=== PATIENT | female | born 1990 | race Caucasian/White ===

== ENCOUNTER 2017-02-12 13:15 | Inpatient (IN) | payer OTHER ==
[2017-02-12] MEDS ORDERED: BETAMET ACET/BETAMET NA PH 30 MG/5 ML VIAL IM ONE (13:40)
[2017-02-12 14:26] LABS: BASOPHIL 0.4 % (0-2.0); EOSINOPHIL 0.2 % (0-4.5); MCH 27.4 pg (25.7-33.7); MCHC 32.2 g/dl (32.0-36.0); MEAN CELL VOLUME 85.2 fl (80-96); MEAN PLT VOLUME 7.9 fl (7.5-11.1); NEUTROPHILS 72.7 % (42.8-82.8); PLATELET COUNT 221 K/MM3 (134-434); RDW 15.5 % (11.6-15.6)
[2017-02-12 14:46] LABS: ALK PHOS 162 U/L (45-117); ANION GAP 10 (8-16); BILIRUBIN,TOTAL 0.2 mg/dL (0.2-1.0); CALCIUM 8.2 mg/dL (8.5-10.1); CO2 24 mmol/L (21-32); COCKROFT - GAULT 0; CREATININE 0.6 mg/dL (0.55-1.02); GLUCOSE,RANDOM 61 mg/dL (74-106); SGOT/AST 17 U/L (15-37); SGPT/ALT 14 U/L (12-78); TOT PROT 5.8 g/dl (6.4-8.2)
[2017-02-12 15:30] LABS: URINE APPEARANCE CLEAR; URINE BILIRUBIN NEGATIVE (NEGATIVE); URINE BLOOD NEGATIVE (NEGATIVE); URINE COLOR YELLOW; URINE GLUCOSE (UA) NEGATIVE (NEGATIVE); URINE KETONE NEGATIVE (NEGATIVE); URINE NITRITE NEGATIVE (NEGATIVE); URINE UROBILINOGEN NEGATIVE E.U./dl (0.2-1.0)
[2017-02-12 15:34] LABS: URINE LEUK ESTERASE 1+ (NEGATIVE); URINE PROTEIN 3+ (NEGATIVE)
[2017-02-12 15:36] LABS: URINE BACTERIA RARE /hpf (NONE SEEN); URINE HYALINE CAST 2 /lpf; URINE MUCUS RARE; URINE RBC 4 /hpf (0-3); URINE WBC 37 /hpf (3-5)
[2017-02-12 15:42] LABS: URIC ACID 4.7 mg/dL (2.6-7.2)
[2017-02-12 16:28] VITALS: BMI 37.9
[2017-02-12 18:13] LABS: INR 0.86 (0.82-1.09); PROTHROMBIN TIME (PATIENT) 9.4 SEC (9.98-11.88)
[2017-02-12 18:15] LABS: ACTIVATED PTT 27.8 SECONDS (26.9-34.4)
[2017-02-12 18:48] LABS: HIV 1 & 2 AB NEGATIVE; HIV 1 AGp24 NEGATIVE
--- NOTE | 2017-02-12 19:17 | HP ---
Past Medical History - Primary Care Physician PCP:: Omar Stinson - Admission Chief Complaint: 34.4 weeks,pih, .elevate umblical artery measurment. obesity History of Present Illness: 26 yo f , edc by sono 03/22/17, 34.3 weeks, referred from DR Escalera office for elevated BP158/115, no headache, no blurred vision, no RUQ pain recived celstone on 02/12/17 at 145 pm Last Vital Signs Temp Pulse Resp BP Pulse Ox 98.3 F 72 20 152/91 02/12/17 18:00 02/12/17 19:00 02/12/17 19:00 02/12/17 19:00 CBC, BMP 02/12/17 14:14 02/12/17 14:14 - Past Medical History ...: 1 ...Para: 0 ...LMP: 06/25/16 ... Weeks Gestation by Dates: 33.1 ...EDC by Dates: 04/01/17 ...EDC by Sono: 03/22/17 Additional OB History: elevated inhibin A. negative NT - Past Surgical History Hx Myomectomy: No Hx Transabdominal Cerclage: No - Smoking History Smoking history: Never smoked Have you smoked in the past 12 months: No - Alcohol/Substance Use Hx Alcohol Use: No - Social History History of Recent Travel: No Home Medications - Allergies Allergies/Adverse Reactions: Allergies Allergy/AdvReac Type Severity Reaction Status Date / Time No Known Allergies Allergy Verified 08/24/16 17:08 - Home Medications Home Medications: Ambulatory Orders Vit/Iron Fumarate/FA [ Tablet] 1 tab PO DAILY 02/12/17 Review of Systems - Review of Systems Constitutional: reports: No Symptoms Eyes: reports: No Symptoms HENT: reports: No Symptoms Neck: reports: No Symptoms Cardiovascular: reports: No Symptoms Respiratory: reports: No Symptoms Gastrointestinal: reports: No Symptoms Genitourinary: reports: No Symptoms Breasts: reports: No Symptoms Reported Musculoskeletal: reports: No Symptoms Integumentary: reports: No Symptoms Neurological: reports: No Symptoms Endocrine: reports: No Symptoms Hematology/Lymphatic: reports: No Symptoms Psychiatric: reports: No Symptoms Physical Exam - Maternity Vital Signs: Vital Signs Temperature 98.3 F 02/12/17 18:00 Pulse Rate 72 02/12/17 19:00 Respiratory Rate 20 02/12/17 19:00 Blood Pressure 152/91 02/12/17 19:00 O2 Sat by Pulse Oximetry (%) Constitutional: Yes: Well Nourished, No Distress, Calm Eyes: Yes: WNL, Conjunctiva Clear, EOM Intact HENT: Yes: WNL, Atraumatic, Normocephalic Neck: Yes: WNL, Supple, Trachea Midline Cardiovascular: Yes: WNL, Regular Rate and Rhythm Breast(s): Yes: WNL - Abdominal Exam/OB Number of Fetuses: Single Presentation: Vertex Regularity: Irregular Intensity: Unaware Monitor Mode: External Heart Rate Location: [facility] [place] Category: I Accelerations: Uniform Decelerations: None - Vaginal Exam/OB Vaginal Bleediing: No Speculum Exam: No Dilatation (cm): 1 cm Effacement (%): 25 Amniotic Membrane Status: Intact Presentation: Vertex/Position Station: -2 - Physical Exam Musculoskeletal: Yes: WNL Extremities: Yes: WNL Edema: Yes Edema: LLE: 2+, RLE: 2+ Integumentary: Yes: WNL ...Motor Strength: WNL Psychiatric: Yes: WNL - Labs Lab Results: CBC, BMP 02/12/17 14:14 02/12/17 14:14 Hemorrhage Risk Assessment - Risk Factors Medium Risk Factors: Yes: None High Risk Factors: Yes: None Risk Score: 1 Risk Level: Medium Risk Problem List - Problems (1) with 34 completed weeks gestation Code(s): Z3A.34 - 34 WEEKS GESTATION OF (2) PIH ( induced hypertension) Code(s): O13.9 - GESTATIONAL HTN W/O SIGNIFICANT PROTEINURIA, UNSP TRIMESTER Qualifiers: Trimester: third trimester Qualified Code(s): O13.3 - Gestational [ -induced] hypertension without significant proteinuria, third trimester (3) Obesity Code(s): E66.9 - OBESITY, UNSPECIFIED Qualifiers: Obesity type: due to excess calories Assessment/Plan plan admit, monitor bp closely, MGSO4. monitor i/o, celestone, 2 doses , followed by delivery, case discussed with DR Escalera ,agreed with plan of management case also discussed with patient and her mother via supply manager
[2017-02-12] MEDS: DEXTROSE 5%-LACTATED RINGERS 1,000 ML IV SCH (20:00)
[2017-02-12] MEDS: MAGNESIUM 4GM/H20 - 100 ML IVPB SCH (20:15)
[2017-02-12] MEDS: LABETALOL HCL 200 MG TABLET (FP) PO PRN (20:50)
[2017-02-12] MEDS: MAGNESIUM SULFATE 20GM/500ML - 500 ML IVPB SCH (20:50)
[2017-02-13] MEDS ORDERED: BETAMET ACET/BETAMET NA PH 30 MG/5 ML VIAL IM ONE (01:45)
[2017-02-13] MEDS: LABETALOL HCL 200 MG TABLET (FP) PO PRN (05:25)
[2017-02-13 06:06] LABS: MCH 27.3 pg (25.7-33.7); MCHC 32.6 g/dl (32.0-36.0); MEAN CELL VOLUME 83.7 fl (80-96); MEAN PLT VOLUME 7.9 fl (7.5-11.1); PLATELET COUNT 228 K/MM3 (134-434); WHITE BLOOD COUNT 11.2 K/mm3 (4.0-10.0)
[2017-02-13 06:49] LABS: ALBUMIN 2.1 g/dl (3.4-5.0); ANION GAP 12 (8-16); BILIRUBIN,TOTAL 0.1 mg/dL (0.2-1.0); CALCIUM 7.9 mg/dL (8.5-10.1); CO2 18 mmol/L (21-32); COCKROFT - GAULT 283.2455; CREATININE 0.5 mg/dL (0.55-1.02); GLUCOSE,RANDOM 120 mg/dL (74-106); SGOT/AST 17 U/L (15-37); SGPT/ALT 16 U/L (12-78); TOT PROT 6.1 g/dl (6.4-8.2)
[2017-02-13 06:50] LABS: ALK PHOS 165 U/L (45-117)
[2017-02-13] MEDS: DEXTROSE 5%-LACTATED RINGERS 1,000 ML IV SCH ×2 (13:30→21:00)
--- NOTE | 2017-02-13 18:51 | PN ---
Progress Note (short form) - Note Progress Note: hospital day 1 34 weeks, pih, iugr no headache, no blurred vision, no RUQ pain Last Vital Signs Temp Pulse Resp BP Pulse Ox 97.9 F 77 20 148/80 02/13/17 12:05 02/13/17 18:00 02/13/17 18:00 02/13/17 18:00 CBC, BMP 02/13/17 06:00 02/13/17 06:00 abdomen soft, , no ruq tenderness , no cva uterus non tender cx 2 cm , 25%, vx -2 mi, fhr cat 1,no contraction recived second dose of celestone, recived one dose of labatalol, bp stable , asymptomatic on MG, plan wait for 24 hr urine protein, and monitor bp, possible induction in am Problem List - Problems (1) with 34 completed weeks gestation Code(s): Z3A.34 - 34 WEEKS GESTATION OF (2) PIH ( induced hypertension) Code(s): O13.9 - GESTATIONAL HTN W/O SIGNIFICANT PROTEINURIA, UNSP TRIMESTER Qualifiers: Trimester: third trimester Qualified Code(s): O13.3 - Gestational [ -induced] hypertension without significant proteinuria, third trimester (3) Obesity Code(s): E66.9 - OBESITY, UNSPECIFIED Qualifiers: Obesity type: due to excess calories
[2017-02-13 22:52] LABS: URINE PROTEIN 357 mg/dl
[2017-02-13 22:54] LABS: URINE COLLECTION TIME 24 HOURS
[2017-02-13 22:55] LABS: CREATININE 0.5 mg/dL (0.55-1.02); URINE CREATININE 96.8 mg/dL
[2017-02-13] MEDS ORDERED: DINOPROSTONE 10 MG VAGINAL SUPPOSITORY VG ONE (23:15)
[2017-02-14] MEDS: DEXTROSE 5%-LACTATED RINGERS 1,000 ML IV SCH ×2 (03:06→05:30)
[2017-02-14] MEDS: MAGNESIUM 4GM/H20 - 100 ML IVPB SCH (03:07)
[2017-02-14] MEDS: LABETALOL HCL 200 MG TABLET (FP) PO PRN ×2 (07:19→21:15)
[2017-02-14] MEDS: MAGNESIUM SULFATE 20GM/500ML - 500 ML IVPB SCH (11:15)
[2017-02-14] MEDS ORDERED: BUTORPHANOL TARTRATE 1 MG/ML VIAL IVPUSH ONE (11:45)
[2017-02-14] MEDS ORDERED: OXYTOCIN 15 UNITS/ LR 250 ML 250 ML IVPB SCH (16:00)
--- NOTE | 2017-02-14 16:59 | PN ---
Progress Note (short form) - Note Progress Note: cx 1 to 2 50 vx -2 mi, fhr cat 1 no dilation with cervidil and pitocin advised c/s rba explained, agreed , nursery notified Last Vital Signs Temp Pulse Resp BP Pulse Ox 98.1 F 62 20 147/89 02/14/17 14:00 02/14/17 15:00 02/14/17 15:00 02/14/17 15:00 Problem List - Problems (1) with 34 completed weeks gestation Code(s): Z3A.34 - 34 WEEKS GESTATION OF (2) PIH ( induced hypertension) Code(s): O13.9 - GESTATIONAL HTN W/O SIGNIFICANT PROTEINURIA, UNSP TRIMESTER Qualifiers: Trimester: third trimester Qualified Code(s): O13.3 - Gestational [ -induced] hypertension without significant proteinuria, third trimester (3) Obesity Code(s): E66.9 - OBESITY, UNSPECIFIED Qualifiers: Obesity type: due to excess calories
[2017-02-14] MEDS ORDERED: ELECTROLYTE-148 SOLN 1,000 ML IV SCH (17:00)
[2017-02-14] MEDS ORDERED: CITRIC ACID/SODIUM CITRATE 30 ML UNIT-DOSE CUP PO ONE (17:00)
[2017-02-14] MEDS ORDERED: DEXTROSE 5%-LACTATED RINGERS 1,000 ML IV SCH ×2 (17:00→20:15)
[2017-02-14 18:23] LABS: BASOPHIL 0.2 % (0-2.0); MCH 27.6 pg (25.7-33.7); MCHC 32.8 g/dl (32.0-36.0); MEAN CELL VOLUME 84.2 fl (80-96); MEAN PLT VOLUME 7.7 fl (7.5-11.1); NEUTROPHILS 82.5 % (42.8-82.8); PLATELET COUNT 234 K/MM3 (134-434); RDW 15.5 % (11.6-15.6); WHITE BLOOD COUNT 11.7 K/mm3 (4.0-10.0)
[2017-02-14] MEDS ORDERED: BENZOCAINE 28 GM HEMORRHOIDAL OINTMENT PR PRN (20:11)
[2017-02-14] MEDS ORDERED: WITCH HAZEL 50% (TUCKS) 40 PAD/JAR PAD TP PRN (20:11)
[2017-02-14] MEDS ORDERED: BENZOCAINE 20% 57 GM BOTTLE TP PRN (20:11)
[2017-02-14] MEDS ORDERED: METHYLERGONOVINE MALEATE 0.2 MG/1 ML AMP IM PRN (20:11)
[2017-02-14] MEDS ORDERED: diphenhydrAMINE HCL 25 MG CAPSULE (FP) PO PRN (20:11)
[2017-02-14] MEDS ORDERED: ACETAMINOPHEN 1000 MG/100 ML VIAL (NON FORMULARY) IVPB ONE (20:13)
[2017-02-14] MEDS ORDERED: OXYTOCIN 20 UNITS in 0.9% NS 1,000 ML IV SCH (20:15)
[2017-02-14 20:18] LABS: ARTERIAL BLOOD GAS pH 7.28 (7.35-7.45)
[2017-02-14 20:20] LABS: ARTERIAL BLD GAS O2 SATURATION 7.2 % (90-98.9); ARTERIAL BLOOD GAS PO2 9.7 mmHg (80-100)
[2017-02-14 20:23] LABS: ARTERIAL BLOOD GAS BASE EXCESS -0.3 meq/l (-2-2); ARTERIAL BLOOD GAS HCO3 26.3 meq/L (22-26); ARTERIAL BLOOD GAS pH 7.33 (7.35-7.45)
[2017-02-14 20:24] LABS: ARTERIAL BLD GAS O2 SATURATION 31.6 % (90-98.9); ARTERIAL BLOOD GAS PO2 20.8 mmHg (80-100)
[2017-02-14] MEDS ORDERED: ONDANSETRON 4 MG/2 ML VIAL IVPB PRN (20:35)
[2017-02-14] MEDS ORDERED: MAGNESIUM SULFATE 20GM/500ML - 500 ML IVPB SCH (23:45)
[2017-02-15] MEDS: CEFAZOLIN (PRE-DOCKED) 50 ML IVPB SCH ×2 (02:00→09:14)
--- NOTE | 2017-02-15 02:08 | OP ---
DATE OF OPERATION: 02/14/2017 PREOPERATIVE DIAGNOSIS: at 34 weeks, severe -induced hypertension, Cervidil and Pitocin induction, failure to dilate. POSTOPERATIVE DIAGNOSIS: at 34 weeks, severe -induced hypertension, Cervidil and Pitocin induction, failure to dilate. PROCEDURE: Primary low segment transverse section. SURGEON: Omar Stinson MD FOOD PRODUCTS TESTER: VITO Domingo ANESTHESIA: Spinal anesthesia by Johnathan Bryant DO ESTIMATED BLOOD LOSS: 500 mL. FINDINGS: Live baby boy, 's 8 and 9, occiput posterior position, oligohydramnios, and IUGR. OPERATIVE DESCRIPTION: Patient was taken to the operating room under adequate spinal anesthesia. Abdomen and perineum were prepped and draped. Pfannenstiel abdominal skin incision was made. Abdominal wall was cut layer by layer until the peritoneal layer was exposed and incised. Upon entering the abdominal cavity, the lower uterine segment was identified and the uterovesical fold of the peritoneum established. Bladder was pushed down. With the lower blade of the [place] retractor in the pelvis, a low transverse uterine incision was made. The incision extended laterally. Amniotic sac was entered, clear fluid. Amniotic fluid was a small amount. Then, head delivered without any difficulty from the occiput posterior position. The nasopharynx was suctioned and the live baby was delivered. Placenta was delivered manually. Uterine cavity was cleared of all remaining tissue. Uterine incision was closed in 2 layers, first layer with 0 Biosyn continuous suture, the second layer with 0 Biosyn imbricating the first layer. Bladder flap was closed with 0 Biosyn continuous suture. Both tubes and ovaries were checked and were normal. No active bleeding was seen. All lap sponge and instrument counts were correct. The peritoneum was closed with 0 Biosyn continuous suture. Muscles were brought together with interrupted sutures of 0 Biosyn. Fascia was closed with 0 Biosyn continuous suture. Subcutaneous fat interrupted suture of 0 Biosyn and skin was closed with stapled. Patient tolerated the procedure well and left the OR in good condition. Nga [id number]
[2017-02-15] MEDS: LABETALOL HCL 200 MG TABLET (FP) PO PRN ×4 (02:30→22:00)
[2017-02-15 07:10] LABS: BASOPHIL 0.2 % (0-2.0); MCH 28.1 pg (25.7-33.7); MEAN CELL VOLUME 85.1 fl (80-96); MEAN PLT VOLUME 7.5 fl (7.5-11.1); PLATELET COUNT 133 K/MM3 (134-434); RDW 15.8 % (11.6-15.6); WHITE BLOOD COUNT 11.1 K/mm3 (4.0-10.0)
--- NOTE | 2017-02-15 08:14 | PN ---
Progress Note (short form) - Note Progress Note: Anesthesia post op note S/P with spinal. POD#1. No post anesthesia complications.On Mg drip. VSS. Signing off.
--- NOTE | 2017-02-15 08:52 | PN ---
Progress Note (short form) - Note Progress Note: pod 0 s/p c/s for severe pih,failure of induction, no headache, no blurred vision CBC, BMP 02/15/17 06:30 02/13/17 20:00 Last Vital Signs Temp Pulse Resp BP Pulse Ox 98.4 F 88 18 142/90 100 02/15/17 06:30 02/15/17 08:30 02/15/17 08:30 02/15/17 08:30 02/14/17 21:15 abdomen soft, no RUQ tenderness , no cav incision dry, no calf tenderness no excess vaginal bleding, out put adequate DTR normal impresion BP stable on labetlol, astmptomatic plan cont mg till 1 pm today, renal consult, oob , ambualte Problem List - Problems (1) with 34 completed weeks gestation Code(s): Z3A.34 - 34 WEEKS GESTATION OF (2) PIH ( induced hypertension) Code(s): O13.9 - GESTATIONAL HTN W/O SIGNIFICANT PROTEINURIA, UNSP TRIMESTER Qualifiers: Trimester: third trimester Qualified Code(s): O13.3 - Gestational [ -induced] hypertension without significant proteinuria, third trimester (3) Obesity Code(s): E66.9 - OBESITY, UNSPECIFIED Qualifiers: Obesity type: due to excess calories
--- NOTE | 2017-02-15 12:27 | CONSULT ---
Consult - text type - Consultation Consultation Note: Renal Consult for hypertension This is a 26 year old woman with no significant PMhx that presented at 34 weeks gestation referred from Ob office for elevated BP now s/p with hypertension. Pt reports that she was just told for the first time that her BP was high last week. No medications. No Hx of HTN. No family Hx of HTn as far as she knows. Gained about 40 lbs with . + LE swelling. No NSAID use. No sob, chest pain, abd pain, N/V/D. Pt seen in Labor and Delivery. No WILSON, blurry vision, confusion or lethargy. PMhx: as above Allergies: NKDA Family hx: NC Social Hx: No T/A/D ROS: as per HPI Home Meds: Home Medications Medication Instructions Recorded Vit/Iron Fumarate/FA 1 tab PO DAILY 02/12/17 [ Tablet] Vital Signs Temperature 98.4 F 02/15/17 10:00 Pulse Rate 78 02/15/17 12:00 Respiratory Rate 18 02/15/17 12:00 Blood Pressure 143/90 02/15/17 12:00 O2 Sat by Pulse Oximetry (%) 97 02/15/17 09:52 Intake & Output 02/12/17 02/13/17 02/14/17 02/15/17 23:59 23:59 23:59 23:59 Intake Total 1000 3600 4085.0 2137.5 Output Total 250 2100 4450 1350 Balance 750 1500 -365.0 787.5 Weight 228 lb Gen: NAD, awake and alert HEENT: NC/AT, MMM, No JVD, Neck Supple CVS: RRR, NO M/R Lungs: CTA Abd: Soft, Obese, Mild Tenderness Ext: 1+ edema in the LE Neuro: No focal defects CBC, BMP 02/15/17 06:30 02/13/17 20:00 Laboratory Tests 02/12/17 02/13/17 02/13/17 15:00 20:00 20:00 Urine Protein 3+ H Ur Leukocyte Esterase 1+ H D Creatinine Clearance 202 H Ur Total Protein 24 Hr 5355 H Current Medications Acetaminophen (Tylenol -) 650 mg PO Q4H PRN PRN Reason: FEVER OR PAIN Benzocaine (Americaine Ointment -) 1 applic NC PRN PRN PRN Reason: PAIN Benzocaine (Americaine 20% [place] -) 1 spray TP PRN PRN PRN Reason: PAIN Bisacodyl (Dulcolax Suppository -) 10 mg RC PRN PRN PRN Reason: CONSTIPATION Diphenhydramine HCl (Benadryl -) 25 mg PO Q8H PRN PRN Reason: FOR ITCHING Diphenhydramine HCl (Benadryl Injection -) 25 mg IVPUSH Q4H PRN PRN Reason: Pruritis Diphtheria/Tetanus/Acell Pertussis (Boostrix -) 0.5 ml IM .ONCE ONE Stop: 02/17/17 10:01 Magnesium Sulfate (Magnesium Sulfate 20gm/500ml -) 500 mls @ 25 mls/hr IVPB ASDIR SUSAN Last Admin: 02/14/17 22:15 Dose: 25 mls/hr Influenza Virus Vaccine (Fluvirin) 45 mcg IM .ONCE ONE Stop: 02/17/17 10:01 Labetalol HCl (Normodyne -) 200 mg PO Q6H PRN PRN Reason: HYPERTENSION Last Admin: 02/15/17 07:51 Dose: 200 mg Methylergonovine Maleate (Methergine Injection -) 0.2 mg IM Q4H PRN PRN Reason: EXCESSIVE BLEEDING Oxycodone HCl (Roxicodone -) 5 mg PO Q4H PRN PRN Reason: PAIN LEVEL 1-5 Oxycodone HCl (Roxicodone -) 10 mg PO Q4H PRN PRN Reason: PAIN LEVEL 6-10 Senna/Docusate Sodium (Pericolace -) 2 tablet PO HS PRN PRN Reason: CONSTIPATION Simethicone (Mylicon -) 80 mg PO Q4H PRN PRN Reason: GAS Witch Kasia/Glycerin (Tucks Pads -) 1 pad TP PRN PRN PRN Reason: PAIN A/P 26 year old woman with no significant PMhx that presented at 34 weeks gestation referred from Ob office for elevated BP now s/p with hypertension. # Hypertension likely secondary to Preclampisia r/o HEELP Check UPCR, Repeat UA Check LDH, Haptoglobin, LFTs continue Labetalol 200mg Q6h PRN for SBP > 140 or DBP > 90 Low salt diet avoid nsaids D/c IVF when possible #Low Plts Check LDH, Haptoglobin Trend CBC #34 weeks gestation s/p Management as per Ob Thank you Fei Raymundo DO
[2017-02-15 13:10] LABS: URINE APPEARANCE CLEAR; URINE BILIRUBIN NEGATIVE (NEGATIVE); URINE BLOOD 2+ (NEGATIVE); URINE COLOR LTYELLOW; URINE GLUCOSE (UA) NEGATIVE (NEGATIVE); URINE KETONE NEGATIVE (NEGATIVE); URINE LEUK ESTERASE NEGATIVE (NEGATIVE); URINE NITRITE NEGATIVE (NEGATIVE); URINE UROBILINOGEN NEGATIVE E.U./dl (0.2-1.0)
[2017-02-15 13:11] LABS: URINE PROTEIN 2+ (NEGATIVE)
[2017-02-15 13:20] LABS: URINE MUCUS RARE; URINE RBC 44 /hpf (0-3); URINE WBC 8 /hpf (3-5)
[2017-02-15] MEDS: ACETAMINOPHEN 325 MG TABLET (FP) PO PRN ×3 (13:20→22:00)
[2017-02-15 14:33] LABS: URINE CREATININE 85.5 mg/dL
--- NOTE | 2017-02-15 14:57 | PN ---
Progress Note, Physician Chief Complaint: Pt. ambulating and voiding, pain controlled, no WILSON. No anesthesia complaints. - Current Medication List Current Medications: Active Medications Acetaminophen (Tylenol -) 650 mg PO Q4H PRN PRN Reason: FEVER OR PAIN Last Admin: 02/15/17 13:20 Dose: 650 mg Benzocaine (Americaine Ointment -) 1 applic NE PRN PRN PRN Reason: PAIN Benzocaine (Americaine 20% [place] -) 1 spray TP PRN PRN PRN Reason: PAIN Bisacodyl (Dulcolax Suppository -) 10 mg RC PRN PRN PRN Reason: CONSTIPATION Diphenhydramine HCl (Benadryl -) 25 mg PO Q8H PRN PRN Reason: FOR ITCHING Diphenhydramine HCl (Benadryl Injection -) 25 mg IVPUSH Q4H PRN PRN Reason: Pruritis Diphtheria/Tetanus/Acell Pertussis (Boostrix -) 0.5 ml IM .ONCE ONE Stop: 02/17/17 10:01 Influenza Virus Vaccine (Fluvirin) 45 mcg IM .ONCE ONE Stop: 02/17/17 10:01 Labetalol HCl (Normodyne -) 200 mg PO Q6H PRN PRN Reason: HYPERTENSION Last Admin: 02/15/17 14:05 Dose: 200 mg Methylergonovine Maleate (Methergine Injection -) 0.2 mg IM Q4H PRN PRN Reason: EXCESSIVE BLEEDING Oxycodone HCl (Roxicodone -) 5 mg PO Q4H PRN PRN Reason: PAIN LEVEL 1-5 Oxycodone HCl (Roxicodone -) 10 mg PO Q4H PRN PRN Reason: PAIN LEVEL 6-10 Senna/Docusate Sodium (Pericolace -) 2 tablet PO HS PRN PRN Reason: CONSTIPATION Simethicone (Mylicon -) 80 mg PO Q4H PRN PRN Reason: GAS Witch Kasia/Glycerin (Tucks Pads -) 1 pad TP PRN PRN PRN Reason: PAIN - Objective Vital Signs: Vital Signs Temperature 98.3 F 02/15/17 14:40 Pulse Rate 87 02/15/17 14:40 Respiratory Rate 18 02/15/17 14:40 Blood Pressure 154/87 02/15/17 14:40 O2 Sat by Pulse Oximetry (%) 97 02/15/17 09:52 Constitutional: Yes: Well Nourished, No Distress, Calm Musculoskeletal: Yes: WNL Neurological: Yes: WNL, Alert, Oriented ...Motor Strength: WNL Labs: CBC, BMP 02/15/17 06:30 02/13/17 20:00 INR, PTT INR 0.86 (0.82-1.09) 02/12/17 17:00 Assessment/Plan POD#1 s/p primary under spinal with duramorph. Doing well. D/C from anesthesia care.
[2017-02-15] MEDS: SIMETHICONE 80 MG TAB.CHEW (FP) PO PRN ×2 (17:17→22:00)
[2017-02-15] MEDS: oxyCODONE HCL 5 MG TABLET PO PRN (17:17)
[2017-02-15] MEDS ORDERED: BISACODYL 10 MG SUPP.RECT RC PRN (20:11)
[2017-02-16] MEDS: LABETALOL HCL 200 MG TABLET (FP) PO PRN ×2 (06:10→14:35)
[2017-02-16 10:27] LABS: ALBUMIN 1.6 g/dl (3.4-5.0); ANION GAP 7 (8-16); BILIRUBIN,TOTAL 0.4 mg/dL (0.2-1.0); CALCIUM 7.5 mg/dL (8.5-10.1); CO2 26 mmol/L (21-32); CREATININE 0.7 mg/dL (0.55-1.02); GLUCOSE,RANDOM 87 mg/dL (74-106); LDH 307 U/L (84-246); SGOT/AST 50 U/L (15-37); SGPT/ALT 77 U/L (12-78); TOT PROT 4.6 g/dl (6.4-8.2)
[2017-02-16 10:28] LABS: ALK PHOS 123 U/L (45-117)
--- NOTE | 2017-02-16 11:10 | PN ---
Post Progress Note - Subjective Subjective: no complains no c/o headache Post Day: 2 Type of Delivery: Primary C/S Vital Signs: Vital Signs Temperature 99.2 F 02/16/17 09:13 Pulse Rate 72 02/16/17 09:13 Respiratory Rate 20 02/16/17 09:13 Blood Pressure 132/70 02/16/17 09:13 O2 Sat by Pulse Oximetry (%) 97 02/15/17 09:52 Selected Entries 02/16/17 02/16/17 02/16/17 02:00 02:02 06:00 Blood Pressure 160/85 155/89 153/95 02/16/17 06:02 Blood Pressure 174/98 Breast Exam: Yes: Soft. No: Engorged Uterus: Yes: Fundus Firm, Fundus below umbilicus Incision: Yes: [place] intact. No: Redness, Oozing Abdomen/GI: Yes: Abdomen soft, Passing flatus, Tolerating PO (diet ). No: Abdominal Distention, Tender Lochia: Yes: Rubra Lochia, amount: Moderate Extremities: Yes: Calves non-tender Perineum: Yes: Intact Activity: Ambulating - Labs Labs: CBC WBC 11.1 K/mm3 (4.0-10.0) H 02/15/17 06:30 RBC 4.06 M/mm3 (3.60-5.2) 02/15/17 06:30 Hgb 11.4 GM/dL (10.7-15.3) 02/15/17 06:30 Hct 34.5 % (32.4-45.2) 02/15/17 06:30 MCV 85.1 fl (80-96) 02/15/17 06:30 MCHC 33.0 g/dl (32.0-36.0) 02/15/17 06:30 RDW 15.8 % (11.6-15.6) H 02/15/17 06:30 Plt Count 133 K/MM3 (134-434) L D 02/15/17 06:30 MPV 7.5 fl (7.5-11.1) 02/15/17 06:30 Neutrophils % 82.0 % (42.8-82.8) 02/15/17 06:30 Lymphocytes % 11.0 % (8-40) 02/15/17 06:30 Monocytes % 6.8 % (3.8-10.2) 02/15/17 06:30 Eosinophils % 0.0 % (0-4.5) 02/15/17 06:30 Basophils % 0.2 % (0-2.0) 02/15/17 06:30 Assessment/Plan stable plan ct po care HTN management , on Po Labetalol 200 mg q 6h prn ,as per Dr Raymundo
--- NOTE | 2017-02-16 11:52 | PN ---
Progress Note (short form) - Note Progress Note: Renal Follow up for Hypertension Pt seen and examined at the bedside s/p Labtealol last night and this AM no acute complaints Vital Signs Temperature 99.2 F 02/16/17 09:13 Pulse Rate 72 02/16/17 09:13 Respiratory Rate 20 02/16/17 09:13 Blood Pressure 132/70 02/16/17 09:13 O2 Sat by Pulse Oximetry (%) 97 02/15/17 09:52 Gen: NAD, awake and alert HEENT: NC/AT, MMM, No JVD, Neck Supple CVS: RRR, NO M/R Lungs: CTA Abd: Soft, Obese, Mild Tenderness Ext: 1+ edema in the LE Neuro: No focal defects CBC, BMP 02/15/17 06:30 02/16/17 09:43 Laboratory Tests 02/16/17 09:43 LD Total 307 H Albumin 1.6 L D Current Medications Acetaminophen (Tylenol -) 650 mg PO Q4H PRN PRN Reason: FEVER OR PAIN Last Admin: 02/15/17 22:00 Dose: 650 mg Benzocaine (Americaine Ointment -) 1 applic [place] PRN PRN PRN Reason: PAIN Benzocaine (Americaine 20% [place] -) 1 spray TP PRN PRN PRN Reason: PAIN Bisacodyl (Dulcolax Suppository -) 10 mg RC PRN PRN PRN Reason: CONSTIPATION Diphenhydramine HCl (Benadryl -) 25 mg PO Q8H PRN PRN Reason: FOR ITCHING Diphenhydramine HCl (Benadryl Injection -) 25 mg IVPUSH Q4H PRN PRN Reason: Pruritis Diphtheria/Tetanus/Acell Pertussis (Boostrix -) 0.5 ml IM .ONCE ONE Stop: 02/17/17 10:01 Influenza Virus Vaccine (Fluvirin) 45 mcg IM .ONCE ONE Stop: 02/17/17 10:01 Labetalol HCl (Normodyne -) 200 mg PO Q6H PRN PRN Reason: HYPERTENSION Last Admin: 02/16/17 06:10 Dose: 200 mg Methylergonovine Maleate (Methergine Injection -) 0.2 mg IM Q4H PRN PRN Reason: EXCESSIVE BLEEDING Oxycodone HCl (Roxicodone -) 5 mg PO Q4H PRN PRN Reason: PAIN LEVEL 1-5 Oxycodone HCl (Roxicodone -) 10 mg PO Q4H PRN PRN Reason: PAIN LEVEL 6-10 Last Admin: 02/15/17 17:17 Dose: 10 mg Senna/Docusate Sodium (Pericolace -) 2 tablet PO HS PRN PRN Reason: CONSTIPATION Simethicone (Mylicon -) 80 mg PO Q4H PRN PRN Reason: GAS Last Admin: 02/15/17 22:00 Dose: 80 mg Witch Kasia/Glycerin (Tucks Pads -) 1 pad TP PRN PRN PRN Reason: PAIN A/P 26 year old woman with no significant PMhx that presented at 34 weeks gestation referred from Ob office for elevated BP now s/p with hypertension. # Hypertension likely secondary to Preclampisia r/o HEELP + Proteinuria LDH elevated, Haptoglobin pending low plt count Hgb stable Continue Labtealol [id number] for now will titrate as needed Thank you Fei Raymundo DO
[2017-02-16] MEDS: SIMETHICONE 80 MG TAB.CHEW (FP) PO PRN (12:00)
[2017-02-16] MEDS: oxyCODONE HCL 5 MG TABLET PO PRN (12:01)
[2017-02-16] MEDS: ACETAMINOPHEN 325 MG TABLET (FP) PO PRN (12:02)
[2017-02-16] MEDS ORDERED: SENNOSIDES/DOCUSATE COMBO (SENNA PLUS) TABLET (UD) PO PRN (22:00)
[2017-02-17] MEDS: SIMETHICONE 80 MG TAB.CHEW (FP) PO PRN ×2 (05:44→16:55)
[2017-02-17] MEDS: LABETALOL HCL 200 MG TABLET (FP) PO PRN ×3 (05:44→18:50)
[2017-02-17] MEDS: oxyCODONE HCL 5 MG TABLET PO PRN ×2 (05:44→16:55)
[2017-02-17] MEDS: ACETAMINOPHEN 325 MG TABLET (FP) PO PRN ×2 (05:45→16:56)
--- NOTE | 2017-02-17 07:26 | PN ---
Post Progress Note - Subjective Subjective: no c/o headache, or dizziness pain scale 6-7/10 Post Day: 3 Type of Delivery: Primary C/S Vital Signs: Vital Signs Temperature 98.6 F 02/16/17 21:27 Pulse Rate 64 02/17/17 05:47 Respiratory Rate 18 02/17/17 05:47 Blood Pressure 160/89 02/17/17 05:47 O2 Sat by Pulse Oximetry (%) 97 02/15/17 09:52 Breast Exam: Yes: Soft, Other (pumping ). No: Engorged Uterus: Yes: Fundus Firm, Fundus below umbilicus Incision: Yes: [place] intact. No: Redness, Oozing Abdomen/GI: Yes: Abdomen soft, Passing flatus (bm done ), Tolerating PO (diet). No: Abdominal Distention, Tender Lochia: Yes: Rubra Lochia, amount: Moderate Extremities: Yes: Calves non-tender, Edema Perineum: Yes: Intact - Labs Labs: CBC WBC 11.1 K/mm3 (4.0-10.0) H 02/15/17 06:30 RBC 4.06 M/mm3 (3.60-5.2) 02/15/17 06:30 Hgb 11.4 GM/dL (10.7-15.3) 02/15/17 06:30 Hct 34.5 % (32.4-45.2) 02/15/17 06:30 MCV 85.1 fl (80-96) 02/15/17 06:30 MCHC 33.0 g/dl (32.0-36.0) 02/15/17 06:30 RDW 15.8 % (11.6-15.6) H 02/15/17 06:30 Plt Count 133 K/MM3 (134-434) L D 02/15/17 06:30 MPV 7.5 fl (7.5-11.1) 02/15/17 06:30 Neutrophils % 82.0 % (42.8-82.8) 02/15/17 06:30 Lymphocytes % 11.0 % (8-40) 02/15/17 06:30 Monocytes % 6.8 % (3.8-10.2) 02/15/17 06:30 Eosinophils % 0.0 % (0-4.5) 02/15/17 06:30 Basophils % 0.2 % (0-2.0) 02/15/17 06:30 Assessment/Plan bP still elevated., on po labetalol prn plan ct management
[2017-02-17 07:27] LABS: BASOPHIL 0.5 % (0-2.0); EOSINOPHIL 0.2 % (0-4.5); MCH 27.9 pg (25.7-33.7); MCHC 32.7 g/dl (32.0-36.0); MEAN CELL VOLUME 85.3 fl (80-96); MEAN PLT VOLUME 7.5 fl (7.5-11.1); NEUTROPHILS 77.4 % (42.8-82.8); PLATELET COUNT 155 K/MM3 (134-434); RDW 15.7 % (11.6-15.6); WHITE BLOOD COUNT 12.4 K/mm3 (4.0-10.0)
[2017-02-17] MEDS ORDERED: DIPHTH,PERTUSS(ACELL),TET 0.5 ML DISP.SYRIN IM ONE (10:00)
[2017-02-17] MEDS ORDERED: INFLUENZA VACCINE 45 MCG/0.5 ML (MDV 16-17) IM ONE (10:00)
[2017-02-17] MEDS ORDERED: INFLUENZA VACCINE 60 MCG/0.5 ML (P/F DISP.SYRIN 16-17) IM ONE (10:00)
[2017-02-17] MEDS ORDERED: LABETALOL HCL 200 MG TABLET (FP) PO PRN (20:13)
--- NOTE | 2017-02-18 00:06 | PN ---
Post Progress Note - Subjective Subjective: doing well, resting, no complinats Post Day: 4 Type of Delivery: Primary C/S Vital Signs: Vital Signs Temperature 98.2 F 02/17/17 23:57 Pulse Rate 70 02/17/17 23:57 Respiratory Rate 18 02/17/17 23:57 Blood Pressure 134/75 02/17/17 23:57 O2 Sat by Pulse Oximetry (%) 97 02/15/17 09:52 Breast Exam: Yes: Soft Uterus: Yes: Fundus Firm Incision: Yes: [place] intact Abdomen/GI: Yes: Abdomen soft Lochia: Yes: Rubra Lochia, amount: Small Extremities: Yes: Calves non-tender Perineum: Yes: Intact Activity: Ambulating - Labs Labs: CBC WBC 12.4 K/mm3 (4.0-10.0) H 02/17/17 06:25 RBC 3.80 M/mm3 (3.60-5.2) 02/17/17 06:25 Hgb 10.6 GM/dL (10.7-15.3) L 02/17/17 06:25 Hct 32.4 % (32.4-45.2) 02/17/17 06:25 MCV 85.3 fl (80-96) 02/17/17 06:25 MCHC 32.7 g/dl (32.0-36.0) 02/17/17 06:25 RDW 15.7 % (11.6-15.6) H 02/17/17 06:25 Plt Count 155 K/MM3 (134-434) 02/17/17 06:25 MPV 7.5 fl (7.5-11.1) 02/17/17 06:25 Neutrophils % 77.4 % (42.8-82.8) 02/17/17 06:25 Lymphocytes % 15.8 % (8-40) D 02/17/17 06:25 Monocytes % 6.1 % (3.8-10.2) 02/17/17 06:25 Eosinophils % 0.2 % (0-4.5) D 02/17/17 06:25 Basophils % 0.5 % (0-2.0) 02/17/17 06:25 Haptoglobin 82 mg/dL (34-200) 02/16/17 09:43 Assessment/Plan as above dc home pain meds see on saturday for staple removal
[2017-02-18] MEDS: oxyCODONE HCL 5 MG TABLET PO PRN (06:09)
[2017-02-18] MEDS: ACETAMINOPHEN 325 MG TABLET (FP) PO PRN (06:10)
[2017-02-18 12:24] VITALS: BP 132/82; PULSE 79; TEMP 98.3
--- NOTE | 2017-02-18 17:04 | PN ---
Progress Note (short form) - Note Progress Note: Renal Follow up for Hypertension Pt seen and examined at the bedside no acute complaints for discharge today Vital Signs Temperature 98.3 F 02/18/17 12:22 Pulse Rate 79 02/18/17 12:22 Respiratory Rate 18 02/18/17 12:22 Blood Pressure 132/82 02/18/17 12:22 O2 Sat by Pulse Oximetry (%) 97 02/15/17 09:52 Gen: NAD, awake and alert CVS: RRR, NO M/R Lungs: CTA Abd: Soft, Obese, Mild Tenderness Ext: 1+ edema in the LE CBC, BMP 02/17/17 06:25 02/16/17 09:43 A/P 26 year old woman with no significant PMhx that presented at 34 weeks gestation referred from Ob office for elevated BP now s/p with hypertension. # Hypertension likely secondary to Preclampisia BP warrants continues antihypertensive treatment at this time continue Labtealol 200mg Q12h follow up in the office in 1-2 weeks Thank you Fei Raymundo DO
--- NOTE | 2017-02-20 14:26 | PATH ---
Surgical Pathology Report Patient Name: ROCK ACOSTA [facility]. Rec. #: [id number] /Age/Gender: 1990 (Age: 26) / F Account: [id number] Location: [facility] OBS/RN PATIENT CARE Taken: 02/13/2017 Received: 02/15/2017 Reported: 02/20/2017 Physicians: Omar Stinson M.D. Specimen(s) Received PLACENTA Clinical History , 34.5 weeks, preeclampsia, obesity Primary c/section Final Diagnosis PLACENTA, DELIVERY: FOCALLY DISRUPTED, SMALL (<400 GM), THIRD TRIMESTER PLACENTA WITH MULTIFOCAL INFARCTS (x5), MILD PREVILLOUS, PERIVILLOUS, AND PRECHORIONIC FIBRIN DEPOSITION, THREE VESSEL UMBILICAL CORD, AND UNREMARKABLE PLACENTAL MEMBRANES. Electronically Signed Tayo Gonzalez M.D. Gross Description The specimen is received fresh, labeled "placenta" and is a 289 gram, 14.0 x 12.5 x 2.5 cm placenta with attached membranes and umbilical cord. The attached membranes are rey, translucent with focal opacities and insert marginally. The umbilical cord measures 6.5 cm in length and averages 1 cm in diameter. The cord inserts eccentrically, 1.5 cm to the nearest margin. No true knots or strictures are identified. Cut surface of the umbilical cord reveals 3 vessels. The surface is cat-blue with fibrin deposition and appropriate caliber vessels. The maternal surface is red-brown and intact. Sectioning reveals 5 rey intraparenchymal lesions ranging from 1.1-2.4 cm in greatest dimension. The remaining placental parenchyma is red-brown and spongy. Court Supervisor sections are submitted in 6 cassettes as follows: 1-membrane rolls and umbilical cord; 2-5-lesions; 6-normal placental parenchyma. /02/19/2017 [facility]02/19/2017
== END 2017-02-18 13:25 | disposition home or self-care (01) | DRG 540 ==
LOC: JDEL 13:15 → JLDR 15:50 → J3W 02-15 14:11
PROVIDERS: ADMIT Obstetrics & Gynecology; ATTEND Obstetrics & Gynecology
PROC: 10D00Z1 Extraction of Products of Conception, Low, Open Approach (ICD-10-PCS; principal; 2017-02-14)
PROC: 3E0P7GC Introduction of Other Therapeutic Substance into Female Reproductive, Via Natural or Artificial Opening (ICD-10-PCS; 2017-02-14)
DX: O14.93 Unspecified pre-eclampsia, third trimester (principal); O13.3 Gestational [pregnancy-induced] hypertension without significant proteinuria, third trimester; O62.0 Primary inadequate contractions; O60.14X0 Preterm labor third trimester with preterm delivery third trimester, not applicable or unspecified; Z3A.34 34 weeks gestation of pregnancy; O99.213 Obesity complicating pregnancy, third trimester; E66.9 Obesity, unspecified; Z68.37 Body mass index [BMI] 37.0-37.9, adult; Z37.0 Single live birth
CPT/HCPCS: 36415; 36600; 80053; 81003; 81015; 82570; 82575; 82803; 83010; 83615; 83735; 84156; 84550; 85025; 85027; 85610; 85730; 86593; 86850; 86900; 86901; 87389; 88307-TC; 90686; 90715; 96372; G0008

== ENCOUNTER 2019-12-24 00:28 | Emergency (ER) | payer OTHER ==
[2019-12-24 01:10] VITALS: BMI 31.8
--- NOTE | 2019-12-24 02:33 | PDOC ---
History of Present Illness - General Chief Complaint: Vaginal Bleeding Stated Complaint: 19 WEEKS / VAG BLEED Time Seen by Provider: 12/24/19 02:33 - History of Present Illness Initial Comments: HPI: 29yo A1 currently 19 weeks (LMP in mid-August) with PMH of abnormal pap smear presenting with lower abdominal pain and vaginal spotting. Patient reports that she had a cervical biopsy yesterday. Since then she has had lower abdominal pain. She also noticed vaginal spotting and used one pad yesterday and one today. Patient presents tonight because her pain worsened. Has not taken anything at home for her pain. Has had a ultrasound during this which confirmed an intrauterine . Denies urinary symptoms. No fever or chills. History obtained with assistance from Sosh aircraft inspection record clerk #[id number] soil expert provider: does not remember the name ROS: Constitutional: no fever, no chills HEENT: no throat pain, no dysphagia Cardiovascular: no chest pain, no palpitations Respiratory: no cough, no shortness of breath Gastrointestinal: +abdominal pain, no nausea Genitourinary: no dysuria, no hematuria Musculoskeletal: no myalgia, no arthralgia Skin: no rash, no itching Neurologic: no headache, no weakness Psych: no agitation, no anxiety PE: General: Awake, alert, and fully oriented, in no acute distress Head: No signs of trauma Eyes: EOMI, sclera anicteric ENT: Moist mucus membranes Neck: Normal ROM, supple Lungs: Lungs clear, Normal breath sounds Cardio: Regular rhythm, S1 and S2 present Abdomen: Soft, nontender. No guarding, no rebound, no masses Extremities: Normal range of motion, Distal pulses present SKIN: Warm, Dry, normal turgor Neurologic: Cranial nerves II through XII grossly intact. Normal speech Pelvic: External genitalia without erythema, exudate or discharge. Vaginal vault is with brown material that does not look like blood but more consistent with material that may have been used in yesterday's biopsy. Cervix is of normal color without lesion. The os is closed. Uterus is noted to be of appropriate size and nontender. No cervical motion tenderness is seen. No masses are palpated. The adnexa are without masses or tenderness. Pre Kindergarten Teacher, Nurse Aileen, present during entire pelvic exam ED Course/MDM: DDX including but not limited to threatened , ectopic , subchorionic hemorrhage, UTI, pre-eclampsia, iatrogenic pain/discharge Labs TVUS Patient is Rh+ per chart review 12/24/19 02:33 CBC WBC 9.6 K/mm3 (4.0-10.0) 12/24/19 03:40 RBC 3.86 M/mm3 (3.60-5.2) 12/24/19 03:40 Hgb 10.8 GM/dL (10.7-15.3) 12/24/19 03:40 Hct 32.5 % (32.4-45.2) 12/24/19 03:40 MCV 84.4 fl (80-96) 12/24/19 03:40 MCH 27.9 pg (25.7-33.7) 12/24/19 03:40 MCHC 33.0 g/dl (32.0-36.0) 12/24/19 03:40 RDW 16.5 % (11.6-15.6) H 12/24/19 03:40 Plt Count 217 K/MM3 (134-434) D 12/24/19 03:40 MPV 7.7 fl (7.5-11.1) 12/24/19 03:40 Absolute Neuts (auto) 7.0 K/mm3 (1.5-8.0) 12/24/19 03:40 Neutrophils % 72.7 % (42.8-82.8) 12/24/19 03:40 Lymphocytes % 19.9 % (8-40) D 12/24/19 03:40 Monocytes % 6.0 % (3.8-10.2) 12/24/19 03:40 Eosinophils % 0.5 % (0-4.5) D 12/24/19 03:40 Basophils % 0.9 % (0-2.0) 12/24/19 03:40 Nucleated RBC % 0 % (0-0) 12/24/19 03:40 No leukocytosis CMP Sodium 138 mmol/L (136-145) 12/24/19 03:40 Potassium 3.9 mmol/L (3.5-5.1) 12/24/19 03:40 Chloride 108 mmol/L (98-107) H 12/24/19 03:40 Carbon Dioxide 23 mmol/L (21-32) 12/24/19 03:40 Anion Gap 7 MMOL/L (8-16) L 12/24/19 03:40 BUN 6.9 mg/dL (7-18) L 12/24/19 03:40 Creatinine 0.6 mg/dL (0.55-1.3) 12/24/19 03:40 Est GFR (CKD-EPI)AfAm 144.78 12/24/19 03:40 Est GFR (CKD-EPI)NonAf 124.92 12/24/19 03:40 Random Glucose 75 mg/dL (74-106) 12/24/19 03:40 Calcium 8.5 mg/dL (8.5-10.1) 12/24/19 03:40 Total Bilirubin 0.2 mg/dL (0.2-1) 12/24/19 03:40 AST 15 U/L (15-37) 12/24/19 03:40 ALT 15 U/L (13-61) 12/24/19 03:40 Alkaline Phosphatase 58 U/L (45-117) 12/24/19 03:40 Total Protein 6.9 g/dl (6.4-8.2) 12/24/19 03:40 Albumin 2.9 g/dl (3.4-5.0) L 12/24/19 03:40 Beta HCG, Quant 01801.9 mIU/ml 12/24/19 03:40 Electrolytes unremarkable Normal Cr No transaminitis B-hcg appropriate for gestational age Patient willing to wait until TVUS available in the morning 12/24/19 06:27 Patient signed out to Dr. North and day team Past History - Past Medical History Allergies/Adverse Reactions: Allergies Allergy/AdvReac Type Severity Reaction Status Date / Time No Known Allergies Allergy Verified 12/24/19 01:04 Home Medications: Ambulatory Orders Vit/Iron Fum/Folic AC [ Tablet] 1 tab PO DAILY 02/12/17 Asthma: No Cancer: No Cardiac Disorders: No COPD: No Diabetes: No HTN: No Seizures: No Thyroid Disease: No - Psycho Social/Smoking Cessation Hx Smoking History: Never smoked Have you smoked in the past 12 months: No Hx Alcohol Use: No Drug/Substance Use Hx: No Substance Use Type: None Hx Substance Use Treatment: No *Physical Exam - Vital Signs Last Vital Signs Temp Pulse Resp BP Pulse Ox 98.5 F 76 18 100/63 99 12/24/19 01:08 12/24/19 01:08 12/24/19 01:08 12/24/19 01:08 12/24/19 01:08 ED Treatment Course - LABORATORY CBC & Chemistry Diagram: 12/24/19 03:40 12/24/19 03:40 Discharge - Discharge Information Problems reviewed: Yes Clinical Impression/Diagnosis: Abdominal pain during Qualifiers: Trimester: second trimester Qualified Code(s): O26.892 - Other specified related conditions, second trimester Condition: Stable Disposition: HOME - Follow up/Referral Referrals: Paul Castano MD [Primary Care Provider] - - Patient Discharge Instructions Patient Printed Discharge Instructions: DI for Threatened Additional Instructions: You were seen in the Emergency Department for abdominal pain and vaginal bleeding during . Lab work was normal. An ultrasound showed a fetus with a heartbeat. You can take tljo-zhr-exetjiz tylenol for pain. Follow the instructions on the medication bottle. Make sure you do not take too much medicine. The maximum daily dose for tylenol is 4000mg/day. Follow-up with your cloth bleaching range operator chief within 72 hours to discuss this ED visit and to further evaluate your symptoms. Your workup is not complete until you do so. Call and make an appointment. Return to the Emergency Department if you experience: -heavy bleeding (more than two pads per hour for two hours) -severe pain -lightheadedness -shortness of breath -high fever -any other concerning symptoms === La vieron en el departamento de emergencias por dolor abdominal y sangrado vaginal jason el embarazo. El trabajo de laboratorio fue normal. Debby ecografa mostr un feto con latidos cardacos. Puede lydia tylenol de venta yaquelin para el dolor. Siga las instrucciones en la botella del medicamento. Asegrese de no lydia demasiados medicamentos. La dosis diaria mxima de tylenol es de 4000 mg / da. Angelina un seguimiento con bass obstetra / gineclogo dentro de las 72 horas para analizar esta visita al servicio de urgencias y evaluar ms a fondo sushil sntomas. Bass trabajo no est completo hasta que lo angelina. Llame y angelina debby ana. Regrese al Departamento de Emergencias si experimenta: Sangrado pesado (ms de dos almohadillas por hora jason dos horas) -dolor kayy aturdimiento falta de aliento -fiebre miriam -cualquier otro sntoma preocupante - Post Discharge Activity Work/Back to School Note: Back to Work
--- NOTE | 2019-12-24 02:35 | PDOC ---
Attending Attestation - Resident Resident Name: Gloria Apple - ED Attending Attestation I have performed the following: I have examined & evaluated the patient, The case was reviewed & discussed with the resident, I agree w/resident's findings & plan - HPI HPI: 12/24/19 04:57 see resident hpi - Physicial Exam PE: 12/24/19 04:57 see resident exam - Medical Decision Making 12/24/19 04:57 29-year-old female approximately 18-1/2 weeks gestational age status post cervical biopsy with bleeding Rh+ based on previous results Bedside ultrasound consistent with live IUP No active bleeding on exam Plan for official ultrasound in the a[place]m. and [place] home
[2019-12-24 04:04] LABS: BASO % 0.9 % (0-2.0); EOS % 0.5 % (0-4.5); HEMATOCRIT 32.5 % (32.4-45.2); HEMOGLOBIN 10.8 GM/dL (10.7-15.3); LYMPH % 19.9 % (8-40); MCH 27.9 pg (25.7-33.7); MEAN CELL VOLUME 84.4 fl (80-96); MEAN PLT VOLUME 7.7 fl (7.5-11.1); NEUT % 72.7 % (42.8-82.8); PLATELET COUNT 217 K/MM3 (134-434); RBC 3.86 M/mm3 (3.60-5.2); RDW 16.5 % (11.6-15.6); WHITE BLOOD COUNT 9.6 K/mm3 (4.0-10.0)
[2019-12-24 04:25] LABS: PH,URINE 6.5 (5.0-8.0); URINE APPEARANCE CLOUDY; URINE BILIRUBIN NEGATIVE (NEGATIVE); URINE COLOR YELLOW; URINE GLUCOSE (UA) NEGATIVE (NEGATIVE); URINE KETONE NEGATIVE (NEGATIVE); URINE LEUK ESTERASE NEGATIVE (NEGATIVE); URINE NITRITE NEGATIVE (NEGATIVE); URINE PROTEIN NEGATIVE (NEGATIVE); URINE UROBILINOGEN 0.2 mg/dL (0.2-1.0)
[2019-12-24 04:38] LABS: ALBUMIN 2.9 g/dl (3.4-5.0); BILIRUBIN,TOTAL 0.2 mg/dL (0.2-1); BLOOD UREA NITROGEN 6.9 mg/dL (7-18); CALCIUM 8.5 mg/dL (8.5-10.1); CREATININE 0.6 mg/dL (0.55-1.3); POTASSIUM 3.9 mmol/L (3.5-5.1); TOT PROT 6.9 g/dl (6.4-8.2)
[2019-12-24 07:08] VITALS: TEMP 98.3
--- NOTE | 2019-12-24 07:16 | PDOC ---
*Physical Exam - Vital Signs Last Vital Signs Temp Pulse Resp BP Pulse Ox 98.3 F 78 18 109/68 98 12/24/19 07:07 12/24/19 07:07 12/24/19 07:07 12/24/19 07:07 12/24/19 07:07 ED Treatment Course - LABORATORY CBC & Chemistry Diagram: 12/24/19 03:40 12/24/19 03:40 - ADDITIONAL ORDERS Additional order review: Laboratory Results 12/24/19 12/24/19 12/24/19 03:40 03:40 03:40 Sodium 138 Potassium 3.9 Chloride 108 H Carbon Dioxide 23 Anion Gap 7 L BUN 6.9 L Creatinine 0.6 Est GFR (CKD-EPI)AfAm 144.78 Est GFR (CKD-EPI)NonAf 124.92 Random Glucose 75 Calcium 8.5 Total Bilirubin 0.2 AST 15 ALT 15 Alkaline Phosphatase 58 Total Protein 6.9 Albumin 2.9 L Beta HCG, Quant Cancelled 93893.9 Urine Color Yellow Urine Appearance Cloudy Urine pH 6.5 Ur Specific [place] 1.017 Urine Protein Negative Urine Glucose (UA) Negative Urine Ketones Negative Urine Blood Negative Urine Nitrite Negative Urine Bilirubin Negative Urine Urobilinogen 0.2 Ur Leukocyte Esterase Negative 12/24/19 03:40 RBC 3.86 MCV 84.4 MCHC 33.0 RDW 16.5 H MPV 7.7 Neutrophils % 72.7 Lymphocytes % 19.9 D Monocytes % 6.0 Eosinophils % 0.5 D Basophils % 0.9 Medical Decision Making - Medical Decision Making 12/24/19 07:[address] Ambika Marcos f/u TVUS - likely [place] home w/ MINT MACHINE OPERATOR f/u 12/24/19 08:13 TVUS report reviewed Discharge - Discharge Information Problems reviewed: Yes Clinical Impression/Diagnosis: Abdominal pain during Qualifiers: Trimester: second trimester Qualified Code(s): O26.892 - Other specified related conditions, second trimester Condition: Stable Disposition: HOME - Follow up/Referral Referrals: Paul Castano MD [Primary Care Provider] - - Patient Discharge Instructions Patient Printed Discharge Instructions: DI for Threatened Additional Instructions: You were seen in the Emergency Department for abdominal pain and vaginal bleeding during . Lab work was normal. An ultrasound showed a fetus with a heartbeat. You can take nlor-zfv-fkusccg tylenol for pain. Follow the instructions on the medication bottle. Make sure you do not take too much medicine. The maximum daily dose for tylenol is 4000mg/day. Follow-up with your wastewater project engineer within 72 hours to discuss this ED visit and to further evaluate your symptoms. Your workup is not complete until you do so. Call and make an appointment. Return to the Emergency Department if you experience: -heavy bleeding (more than two pads per hour for two hours) -severe pain -lightheadedness -shortness of breath -high fever -any other concerning symptoms === La vieron en el departamento de emergencias por dolor abdominal y sangrado vaginal jason el embarazo. El trabajo de laboratorio fue normal. Debby ecografa mostr un feto con latidos cardacos. Puede lydia tylenol de venta yaquelin para el dolor. Siga las instrucciones en la botella del medicamento. Asegrese de no lydia demasiados medicamentos. La dosis diaria mxima de tylenol es de 4000 mg / da. Angelina un seguimiento con kendall obstetra / gineclogo dentro de las 72 horas para analizar esta visita al servicio de urgencias y evaluar ms a fondo sushil sntomas. Kendall trabajo no est completo hasta que lo angelina. Llame y angelina debby ana. Regrese al Departamento de Emergencias si experimenta: Sangrado pesado (ms de dos almohadillas por hora jason dos horas) -dolor kayy aturdimiento falta de aliento -fiebre miriam -cualquier otro sntoma preocupante - Post Discharge Activity Work/Back to School Note: Back to Work
[2019-12-24 08:37] VITALS: BP 98/54; PULSE 69
== END 2019-12-24 08:37 | disposition home or self-care (01) ==
LOC: JER 00:28
DX: O26.892 Other specified pregnancy related conditions, second trimester (principal); R10.9 Unspecified abdominal pain; Z3A.18 18 weeks gestation of pregnancy; Z98.890 Other specified postprocedural states
CPT/HCPCS: 36415; 76801-TC; 80053; 81003; 84702; 85025; 87086; 99284-25

== ENCOUNTER 2020-05-25 03:15 | Inpatient (IN) | payer OTHER ==
[2020-05-25 04:56] VITALS: BMI 34.3
[2020-05-25] MEDS ORDERED: AMPICILLIN - 2 GM in SODIUM CHLORIDE 100 ML IVPB ONE (05:20)
[2020-05-25] MEDS ORDERED: AMPICILLIN SODIUM 2 GM VIAL ONE (05:20)
[2020-05-25] MEDS ORDERED: PROMETHAZINE HCL 25 MG/1 ML VIAL ONE (06:04)
[2020-05-25] MEDS ORDERED: BUTORPHANOL TARTRATE 2 MG/ML VIAL ONE (06:04)
[2020-05-25] MEDS ORDERED: PROMETHAZINE HCL 25 MG/1 ML VIAL IVPUSH ONE (06:10)
[2020-05-25] MEDS ORDERED: BUTORPHANOL TARTRATE 1 MG/ML VIAL IVPB ONE (06:10)
[2020-05-25] MEDS ORDERED: ELECTROLYTE-148 SOLN 1,000 ML IV SCH (06:15)
[2020-05-25 06:27] LABS: BASO % 0.4 % (0-2.0); EOS % 0.3 % (0-4.5); HEMATOCRIT 32.5 % (32.4-45.2); HEMOGLOBIN 10.6 GM/dL (10.7-15.3); LYMPH % 18.1 % (8-40); MCH 28.2 pg (25.7-33.7); MCHC 32.7 g/dl (32.0-36.0); MEAN CELL VOLUME 86.3 fl (80-96); MEAN PLT VOLUME 7.9 fl (7.5-11.1); MONO % 6.4 % (3.8-10.2); NEUT % 74.8 % (42.8-82.8); PLATELET COUNT 220 K/MM3 (134-434); RBC 3.77 M/mm3 (3.60-5.2); RDW 14.3 % (11.6-15.6); WHITE BLOOD COUNT 7.8 K/mm3 (4.0-10.0)
[2020-05-25 06:36] LABS: INR 0.87 (0.83-1.09); PROTHROMBIN TIME (PATIENT) 10.2 SEC (9.7-13.0)
[2020-05-25 06:39] LABS: ACTIVATED PTT 26.3 SECONDS (25.2-36.5)
[2020-05-25 06:48] LABS: BLOOD UREA NITROGEN 9.2 mg/dL (7-18); CALCIUM 8.5 mg/dL (8.5-10.1); CREATININE 0.5 mg/dL (0.55-1.3)
[2020-05-25] MEDS ORDERED: AMPICILLIN SODIUM 1 GM VIAL ONE (08:04)
[2020-05-25] MEDS ORDERED: FENTANYL/BUPIVACAINE/NS/PF - PCEA - 50 ML DISP.SYRIN EP ONE (08:05)
[2020-05-25] MEDS ORDERED: PCA PUMP NR ONE (08:05)
--- NOTE | 2020-05-25 08:22 | HP ---
Past Medical History - Primary Care Physician PCP:: Dianna De Leon - Admission Chief Complaint: 29 yrs 40.2 wks iup admitted in labor onset labor pain since mid night. Previous LFTC/section. pt was evaluated for LP last week , sent home History of Present Illness: [facility]nc at 4, [facility] panel 11/27/19 B Pos, , sickle neg, Hbsag neg, Varicella immune, , hep c nr, [place] , measles immune , hiv neg , gc/ct neg pap abn colposcopy 12/23/19 cx bx benign urine c/s gbs bacteriuria 04/26/20: hiv neg, gc/ct neg h/h 10.1/31.7 , plt 222 03/11/20 1 hr gtt 90 , ANIRUDH ( syphilis test ) neg , quantiferon neg h/o prophylactic asprin due to h/o severe preclempsia 04/25/20 Neg quad screen sliup36 wks, vx, ant placenta, fawad 16,8 , efw 6'1" (45 %tile) History Source: Patient, Medical Record Limitations to Obtaining History: No Limitations - Past Medical History PORT ENGINEER: No: Seizure Cardiovascular: Yes: Other (h/o sever preclmpsia) Pulmonary: No: Asthma Gastrointestinal: Yes: Other (none known) Hepatobiliary: No: Hepatitis B, Hepatitis C Renal/: Yes: UTI (urine gbs bacteriuria) ...: 3 ...Para: 1 (02/2017 plftc/s 33 wks 2'8" sj) ...Term: 0 ...: 1 (33 wks h/o severe preclempsia ) ...Spon : 0 ...Induced : 1 (11/2017) ...Living Children: 1 ...Multiple Gestation: 0 ...LMP: 08/17/19 ... Weeks Gestation by Dates: 40.2 ...EDC by Dates: 05/23/20 ...EDC by Sono: 05/23/20 Heme/Onc: Yes: Anemia Infectious Disease: No: AIDS, HIV, STD's Psych: No: Addictions, Anxiety, Bipolar, Depression, Panic, Psychosis, Schizophrenia, Other Endocrine: No: Diabetes Mellitus, Hypothyroidism - Past Surgical History Past Surgical History: Yes: (02/2017) Hx Myomectomy: No Hx Transabdominal Cerclage: No - Smoking History Smoking history: Never smoked Have you smoked in the past 12 months: No - Alcohol/Substance Use Hx Alcohol Use: No History of Substance Use: reports: None - Social History History of Recent Travel: No Home Medications - Allergies Allergies/Adverse Reactions: Allergies Allergy/AdvReac Type Severity Reaction Status Date / Time No Known Allergies Allergy Verified 05/25/20 03:41 - Home Medications Home Medications: Ambulatory Orders Vit/Iron Fum/Folic AC [ Tablet] 1 tab PO DAILY 02/12/17 Review of Systems - Review of Systems Eyes: reports: No Symptoms HENT: reports: No Symptoms Neck: reports: No Symptoms Cardiovascular: reports: No Symptoms Respiratory: reports: No Symptoms Gastrointestinal: reports: No Symptoms Genitourinary: reports: No Symptoms, Other (bloody shpw) Breasts: reports: No Symptoms Reported Musculoskeletal: reports: No Symptoms Integumentary: reports: No Symptoms Neurological: reports: No Symptoms. denies: Headache Endocrine: reports: No Symptoms Hematology/Lymphatic: reports: No Symptoms Psychiatric: reports: No Symptoms Pain Intensity: 6 Physical Exam - Maternity Vital Signs: Vital Signs Temperature 97.9 F 05/25/20 06:00 Pulse Rate 65 05/25/20 07:00 Respiratory Rate 18 05/25/20 07:00 Blood Pressure 110/59 L 05/25/20 07:00 O2 Sat by Pulse Oximetry (%) 99 05/25/20 04:10 Selected Entries 02/16/17 02/16/17 02/16/17 14:00 17:30 21:27 Temperature Pulse Rate Respiratory Rate Blood Pressure 174/95 140/92 144/77 Weight 02/17/17 05/25/20 05/25/20 02:00 04:30 05:00 Temperature 98.8 F Pulse Rate 79 Respiratory 18 Rate Blood Pressure 140/81 121/64 115/69 Weight 213 lb 05/25/20 05/25/20 06:00 08:00 Temperature Pulse Rate Respiratory Rate Blood Pressure 121/80 119/67 Weight Constitutional: Yes: Well Nourished, Obese Eyes: Yes: WNL HENT: Yes: WNL Neck: Yes: WNL Cardiovascular: Yes: WNL Lungs: Clear to auscultation Breast(s): Yes: Other (not examined) - Abdominal Exam/OB Fundal Height: 40 Number of Fetuses: Single Presentation: Vertex Contractions: Yes Regularity: Irregular (3-5 min) Intensity: Mild/Mod Monitor Mode: External Heart Rate (range): 130 Heart Rate Location: [facility] Category: I Accelerations: Non-Uniform Decelerations: Variable (one variable decel was seen) - Vaginal Exam/OB Vaginal Bleeding: Bloody Show Speculum Exam: No Dilatation (cm): 3-4 Effacement (%): 70 Amniotic Membrane Status: Intact Presentation: Vertex/Position (exam at 4.15 AM) Station: -2 - Physical Exam Musculoskeletal: Yes: WNL Extremities: Yes: WNL. No: Calf Tenderness Edema: LLE: 1+, RLE: 1+ Integumentary: Yes: Incision (previous pfannensteil scar) Deep Tendon Reflex Grade: Hyperactive,very brisk +4 Psychiatric: Yes: WNL, Alert, Oriented - Labs Lab Results: CBC, BMP 05/25/20 05:35 05/25/20 05:35 Laboratory Tests 05/25/20 05/25/20 05:35 05:35 PT with INR 10.20 INR 0.87 PTT (Actin FS) 26.3 Blood Type B POSITIVE Antibody Screen Negative Hemorrhage Risk Assessment - Risk Factors Medium Risk Factors: Yes: Prior , uterine surgery,or multiple laparotomies Risk Score: 1 Risk Level: Medium Risk Problem List - Problems (1) Post term over 40 weeks Code(s): O48.0 - POST-TERM (2) Previous section Code(s): Z98.891 - HISTORY OF UTERINE SCAR FROM PREVIOUS SURGERY (3) Obesity Code(s): E66.9 - OBESITY, UNSPECIFIED Qualifiers: Obesity type: due to excess calories Body mass index: BMI 34.0-34.9 (4) Labor established Code(s): HVM2407 - Assessment/Plan 29 yrs , 40.2 weeks in labor , previous lftc/s pt requests for , pt is aware of possible rupture, risk, hemorrhage , infection, possible pct she knows r/b/a , she willing TOLAC plan gbs prophylaxis with iv ampicillin stadol + phenrgan iv given at 5,30 AM pt requesting for epidural ct TOLAC 03/25/20 : Cx 4/70/-2 FHR 130,cat-1 uc 3-4 min 8.00 AM cx 5-6/100/-1/0 station , fhr 130 cat-1 , uc irregular 3-5 min 8.35 AM srom clear large amount epidural received
[2020-05-25] MEDS ORDERED: NALOXONE HCL 0.4 MG/ML VIAL IVPUSH PRN (08:48)
[2020-05-25] MEDS ORDERED: AMPICILLIN - 1 GM in SODIUM CHLORIDE 100 ML IVPB SCH (09:00)
[2020-05-25] MEDS ORDERED: FENTANYL/BUPIVACAINE/NS/PF - PCEA - 50 ML DISP.SYRIN EP SCH (09:00)
--- NOTE | 2020-05-25 09:53 | PN ---
Progress Note (short form) - Note Progress Note: late decel is noted at 9.20 AM base line 140, fhr down to 70 bpm cat-2 tracing uC irregular , dysfunctional 2-56 min repeat pelvic ex 9.45 AM 5cm, 60 % efface now after srom ,vx -1, bleeding imp : non reassuring FHr & FTP Plan stop TOLAC delivery by repeat c/section r/b/a explained , pt agrees Problem List - Problems (1) Post term over 40 weeks Code(s): O48.0 - POST-TERM (2) Previous section Code(s): Z98.891 - HISTORY OF UTERINE SCAR FROM PREVIOUS SURGERY (3) Obesity Code(s): E66.9 - OBESITY, UNSPECIFIED Qualifiers: Obesity type: due to excess calories Body mass index: BMI 34.0-34.9 (4) Labor established Code(s): VXY8910 - (5) Non-reassuring electronic monitoring tracing Code(s): O36.8390 - MATERN CARE FOR ABNLT FETL HRT RATE OR RHYM, UNSP TRI, UNSP (6) Failure to progress in labor Code(s): O62.2 - OTHER UTERINE INERTIA
[2020-05-25] MEDS ORDERED: CITRIC ACID/SODIUM CITRATE 30 ML UNIT-DOSE CUP PO ONE (09:56)
[2020-05-25] MEDS ORDERED: OXYTOCIN 20 UNITS in 0.9% NS 20 UNIT/1,000 ML INFUS.BAG IV ONE (10:39)
[2020-05-25] MEDS ORDERED: PROPOFOL 20 ML ONE (10:44)
[2020-05-25] MEDS ORDERED: ePHEDrine SULFATE 50 MG/1 ML AMPULE ONE (10:44)
[2020-05-25] MEDS ORDERED: SUCCINYLCHOLINE CHLORIDE 200 MG/10 ML SYRINGE ONE (10:45)
[2020-05-25] MEDS ORDERED: morphine SULFATE/PF 0.5 MG/ML (2cc Syringe - QUVA) ONE (10:45)
[2020-05-25] MEDS ORDERED: OXYTOCIN 10 UNITS/ML VIAL ONE (11:48)
[2020-05-25 12:12] LABS: CORD BASE EXCESS -4.3 mmol/L (0-2); CORD HCO3 21.9 mmHg (20-29); CORD pH 7.314 (7.14-7.44)
--- NOTE | 2020-05-25 12:13 | PN ---
Delivery - Delivery Section: Repeat, Low Flap Transverse (indication : 40.2 weeks, previous c/s , non reassuring FHR, Failure to progress) Type of Anesthesia: Epidural, Spinal EBL (cc): 1,000 (hernandez output 150ml davie color ) Delivery, Single - Stages of Labor Date 1st Stage Initiatied: 05/25/20 Time 1st Stage Initiated: 00:00 Date of Delivery: 05/25/20 Time of Delivery: 11:15 Date Placenta Delivered: 05/25/20 Time Placenta Delivered: 11:17 - Condition of Real Estate Job Titles/Irrigation Foreman Present: Yes Name: Wendie Leon Infant Gender: Female Weight: 6 lb 15 oz Position: OP Total Hours ROM (Hrs/Mins): 1hr 35 - 1 Minute Total Score: 9 5 Minutes Total Score: 9 - Feeding Plan Initial Plan: Elected not to breastfeed exclusively throughout hospitalization Remarks - Remarks Remarks: 29 yrs ,40.2 wks , previous c/s in labor PNC at , [facility] TOLAC attempted late declel, no progress in labor more than 5 cm /60 % /vx -1 bleeding tolac suspended repeat c/section done ampicillin 2 doses were given for urine gbs bacteriueuria inraop 2 gm iv ancef was given intraop course uneventful iv fluids 1200 ml
[2020-05-25] MEDS ORDERED: oxyCODONE HCL 5 MG TABLET PO PRN (12:15)
[2020-05-25] MEDS ORDERED: METHYLERGONOVINE MALEATE 0.2 MG/1 ML AMP IM PRN (12:15)
[2020-05-25] MEDS ORDERED: SIMETHICONE 80 MG TAB.CHEW (FP) PO PRN (12:15)
[2020-05-25] MEDS ORDERED: morphine SULFATE/PF 0.5 MG/ML (2cc Syringe - QUVA) EP ONE (12:21)
[2020-05-25] MEDS ORDERED: ONDANSETRON 4 MG/2 ML VIAL IVPUSH PRN (12:21)
[2020-05-25 12:23] LABS: CORD BASE EXCESS -5.6 mmol/L (0-2); CORD HCO3 22.2 mmHg (20-29); CORD PCO2 52.5 mmHg (30-78); CORD pH 7.245 (7.14-7.44)
[2020-05-25] MEDS: OXYTOCIN 20 UNITS in 0.9% NS 20 UNIT/1,000 ML INFUS.BAG IV SCH (13:22)
[2020-05-25] MEDS: FERROUS SO4 325 MG TABLET (FP) PO SCH (16:51)
[2020-05-25] MEDS ORDERED: CEFAZOLIN 1 GM in DEXTROSE 5%-WATER - 50 ML IVPB SCH (18:00)
[2020-05-25] MEDS: CEFAZOLIN 1 GM/D5W 1 GM/50 ML BAG IVPB SCH (18:21)
[2020-05-25] MEDS: IBUPROFEN 800 MG/8 ML IJ IVPB PRN (19:31)
[2020-05-25] MEDS ORDERED: SENNOSIDES/DOCUSATE COMBO (SENNA PLUS) TABLET (UD) PO PRN (22:00)
[2020-05-26] MEDS: CEFAZOLIN 1 GM/D5W 1 GM/50 ML BAG IVPB SCH ×2 (01:41→11:10)
[2020-05-26] MEDS: OXYTOCIN 20 UNITS in 0.9% NS 20 UNIT/1,000 ML INFUS.BAG IV SCH (05:38)
[2020-05-26] MEDS: IBUPROFEN 800 MG/8 ML IJ IVPB PRN (05:38)
--- NOTE | 2020-05-26 08:43 | PN ---
Post Progress Note - Subjective Subjective: Pain controlled. No fevers/chills. +lochia < menses. . Post Day: 1 Type of Delivery: Repeat C/S Vital Signs: Vital Signs Temperature 98.4 F 05/26/20 05:00 Pulse Rate 73 05/26/20 05:00 Respiratory Rate 18 05/26/20 06:00 Blood Pressure 110/54 L 05/26/20 05:00 O2 Sat by Pulse Oximetry (%) 100 05/25/20 10:30 Uterus: Yes: Fundus below umbilicus Incision: Yes: Dressing dry and intact Abdomen/GI: Yes: Abdomen soft, Tolerating PO Lochia: Yes: Rubra Lochia, amount: Small Extremities: Yes: Calves non-tender Perineum: Yes: Intact Activity: Ambulating - Labs Labs: CBC WBC 7.8 K/mm3 (4.0-10.0) 05/25/20 05:35 RBC 3.77 M/mm3 (3.60-5.2) 05/25/20 05:35 Hgb 10.6 GM/dL (10.7-15.3) L 05/25/20 05:35 Hct 32.5 % (32.4-45.2) 05/25/20 05:35 MCV 86.3 fl (80-96) 05/25/20 05:35 MCH 28.2 pg (25.7-33.7) 05/25/20 05:35 MCHC 32.7 g/dl (32.0-36.0) 05/25/20 05:35 RDW 14.3 % (11.6-15.6) D 05/25/20 05:35 Plt Count 220 K/MM3 (134-434) 05/25/20 05:35 MPV 7.9 fl (7.5-11.1) 05/25/20 05:35 Absolute Neuts (auto) 5.8 K/mm3 (1.5-8.0) 05/25/20 05:35 Neutrophils % 74.8 % (42.8-82.8) 05/25/20 05:35 Lymphocytes % 18.1 % (8-40) 05/25/20 05:35 Monocytes % 6.4 % (3.8-10.2) 05/25/20 05:35 Eosinophils % 0.3 % (0-4.5) 05/25/20 05:35 Basophils % 0.4 % (0-2.0) 05/25/20 05:35 Nucleated RBC % 0 % (0-0) 05/25/20 05:35 Assessment/Plan 29yo s/p RLTCS, POD #1 Routine PP care PO pain control F/U AM labs D/C to home by POD#3 Abdias Zamarripa MD
[2020-05-26 09:03] LABS: BASO % 0.1 % (0-2.0); EOS % 0.4 % (0-4.5); HEMATOCRIT 29.4 % (32.4-45.2); HEMOGLOBIN 9.7 GM/dL (10.7-15.3); LYMPH % 14.5 % (8-40); MCH 28.9 pg (25.7-33.7); MCHC 32.8 g/dl (32.0-36.0); MEAN CELL VOLUME 88.1 fl (80-96); MEAN PLT VOLUME 7.8 fl (7.5-11.1); PLATELET COUNT 183 K/MM3 (134-434); RBC 3.34 M/mm3 (3.60-5.2); RDW 14.3 % (11.6-15.6); WHITE BLOOD COUNT 7.4 K/mm3 (4.0-10.0)
[2020-05-26] MEDS: ENOXAPARIN NA (PORCINE) 40 MG/0.4 ML DISP.SYRIN SQ SCH (09:50)
[2020-05-26] MEDS: FERROUS SO4 325 MG TABLET (FP) PO SCH ×2 (09:52→17:55)
[2020-05-26] MEDS: PRENATAL VITAMINS W/ FOLIC ACID TABLET (FP) PO SCH (09:52)
[2020-05-26] MEDS ORDERED: DIPHTH,PERTUSS(ACELL),TET 0.5 ML DISP.SYRIN IM ONE (10:00)
[2020-05-26] MEDS ORDERED: BISACODYL 10 MG SUPP.RECT RC PRN (12:15)
[2020-05-26] MEDS: ACETAMINOPHEN 325 MG TABLET (FP) PO PRN ×2 (12:43→18:01)
[2020-05-26] MEDS: IBUPROFEN 600 MG TABLET (FP) PO PRN (18:01)
[2020-05-26] MEDS ORDERED: FERROUS SO4 325 MG TABLET (FP) PO SCH (22:00)
--- NOTE | 2020-05-27 06:14 | DS ---
Physical Exam-TITLE ONE READING TEACHER Vital Signs: Vital Signs Temperature 98.1 F 05/26/20 22:00 Pulse Rate 73 05/26/20 22:00 Respiratory Rate 18 05/26/20 22:00 Blood Pressure 125/77 05/26/20 22:00 O2 Sat by Pulse Oximetry (%) 100 05/25/20 10:30 Constitutional: Yes: Well Nourished, No Distress, Calm Eyes: Yes: WNL, Conjunctiva Clear, EOM Intact HENT: Yes: WNL, Atraumatic, Normocephalic Neck: Yes: WNL, Supple, Trachea Midline Cardiovascular: Yes: WNL, Regular Rate and Rhythm Respiratory: Yes: WNL, Regular, CTA Bilaterally Gastrointestinal: Yes: WNL ...Rectal Exam: Yes: WNL Renal/: Yes: WNL ....Post : Yes: Uterus firm, Uterus non-tender, Slight lochia rubra Breast(s): Yes: WNL Musculoskeletal: Yes: WNL Extremities: Yes: WNL Integumentary: Yes: WNL Wound/Incision: Yes: Clean/Dry, Well Approximated, [place] Intact Neurological: Yes: WNL, Alert, Oriented ...Motor Strength: WNL Psychiatric: Yes: WNL, Alert, Oriented Labs: CBC, BMP 05/26/20 08:30 05/25/20 05:35 Delivery - Delivery Section: Repeat, Low Flap Transverse (indication : 40.2 weeks, previous c/s , non reassuring FHR, Failure to progress) Type of Anesthesia: Epidural, Spinal Episiotomy/Laceration: None EBL (cc): 1,000 Delivery, Single - Stages of Labor Date 1st Stage Initiatied: 05/25/20 Time 1st Stage Initiated: 00:00 Date of Delivery: 05/25/20 Time of Delivery: 11:16 Time Placenta Delivered: 11:18 Placenta: Yes: Expressed - Condition of Infant Manager Of Allied Health Services/Supervisor Compressed Yeast Present: Yes Name: Wendie Leon Gender: Female Weight: 6 lb 15 oz Position: OP Total Hours ROM (Hrs/Mins): 2hrs 41min - 1 Minute Total Score: 9 5 Minutes Total Score: 9 - [place] Feeding Plan Initial Plan: Elected not to breastfeed exclusively throughout hospitalization Discharge Summary Problems reviewed: No Reason For Visit: LABOR ADMIT Current Active Problems Failure to progress in labor (Acute) Labor established (Acute) Non-reassuring electronic monitoring tracing (Acute) Post term over 40 weeks (Acute) Procedures: Principal: repeat LST c/s Hospital Course: no complication Plan of Treatment: follow up office 1 week Condition: Stable - Instructions Diet, Activity, Other Instructions: Regular Diet Follow up in one week for an incision check Referrals: Kaycee Zamarripa MD [Staff Physician] - Dianna De Leon MD [Family Provider] - Disposition: HOME - Home Medications Comprehensive Discharge Medication List: Ambulatory Orders Vit/Iron Fum/Folic AC [ Tablet] 1 tab PO DAILY 02/12/17 Breast Pump 1 each MC 5XD 30 Days #1 each 05/25/20 Ferrous Sulfate [Feosol] 325 mg PO DAILY #30 tablet 05/25/20 Ibuprofen 600 mg PO Q6H PRN #30 tablet 05/25/20 Oxycodone HCl/Acetaminophen [Percocet 5-325 mg Tablet -] 1 - 2 tab PO Q6H PRN #20 tab MDD 4 05/25/20
--- NOTE | 2020-05-27 06:59 | PN ---
Progress Note (short form) - Note Progress Note: Post Anesthesia Note Pt is s/p c section under spinal anesthesia with duramorph intrathecally for post op pain control. Patient is doing well with, pain controlled, no adverse anesthetic effects, no headache, nausea, or back ache. Dept of anesthesiology will sign off care at this time
[2020-05-27] MEDS: ACETAMINOPHEN 325 MG TABLET (FP) PO PRN (07:10)
[2020-05-27] MEDS: IBUPROFEN 600 MG TABLET (FP) PO PRN (07:11)
[2020-05-27] MEDS: FERROUS SO4 325 MG TABLET (FP) PO SCH (07:12)
[2020-05-27] MEDS: ENOXAPARIN NA (PORCINE) 40 MG/0.4 ML DISP.SYRIN SQ SCH (09:34)
[2020-05-27] MEDS: PRENATAL VITAMINS W/ FOLIC ACID TABLET (FP) PO SCH (09:35)
[2020-05-27 13:38] VITALS: BP 120/80; PULSE 70; TEMP 98
--- NOTE | 2020-05-30 08:28 | OP ---
DATE OF OPERATION: 05/25/2020 PREOPERATIVE DIAGNOSIS: 40.2 weeks , post term. Previous section. In labor. Failed _VBAC Nonreassuring heart rate. OPERATION: Repeat low transverse section. SURGEON: Dianna De Leon MD. MACHINE OPERATOR SLITTER TECHNICIAN SURGEON: VITO Domingo. ANESTHESIA: Spinal. ANESTHESIOLOGIST: Pamela Lynch MD. FINDINGS: This is a 29-year-old 3, para 0-1-1-1, is 40.2 weeks' gestation, presented with early labor, 3-4 cm dilated, 70% effaced, and -2 station. Patient progressed to about 5 cm, then she was given stadol with Phenergan. Afterwards she got epidural for labor analgesia . spontaneous rupture of membranes. The cervix had become from 100% effacement before to 60% effacement, and vertex -1 station, and late decelerations also was noted. It was decided, patient had an episode of bleeding, so it was decided to do a delivery by section. DESCRIPTION OF PROCEDURE: Epidural catheter was removed. Cain catheter already was inserted Abdomen was shaved, prepped. She was taken to the operating room table, and she was given spinal anesthesia. The abdomen painted and draped in the usual manner. Pfannenstiel incision was made from the previous scar. The skin, subcutaneous tissue, anterior rectus sheath were incised transversely. Bleeding points were clamped and cauterized. Rectus muscle was from the rectus sheath, and parietal peritoneum was opened vertically. Lower flap of peritoneum was identified. Peritoneal adhesions were lysed, and the bladder was pushed down. The lower uterine segment was incised transversely. The baby was delivered from direct OP position. At 11:15 a.m. cord was clamped, cut, and cord segment was collected for the cord blood gas. Cord blood was collected. And then the baby was handed over to the measurement psychologist. Placenta was removed completely with membrane. Uterine cavity was cleaned, and the uterine incision was closed in 2 layers, first layer was a continuous locking with Biosyn 0 suture, 2nd was continuous intermittently locking with the Biosyn 0 suture. Hemostasis was verified, and the bladder peritoneum also was closed with the interrupted Biosyn 0 suture. Both tubes and ovaries were normal. Irrigation was done. The sponge, instrument, needle count was correct. Closure of the abdomen was done. Parietal peritoneum was closed with 2-0 Vicryl suture, and then the muscles were approximated with the Vicryl low interrupted sutures. Anterior rectus sheath was closed with the Vicryl 0 continuous suture. Hemostasis was verified in subcutaneous tissue, and the subcutaneous tissue was approximated with Biosyn 0 suture, interrupted sutures, and then the skin was approximated with srikanth. Patient tolerated procedure well. Pressure dressing was given. Blood clots were removed from the vagina. Estimated blood loss was 1000 mL. Urine output was 150 mL intraoperative, davie color. She received 1200 mL of IV fluids and she received 2 g IV Ancef preoperatively. Nga [id number] MTDD
--- NOTE | 2020-06-01 11:23 | PATH ---
Surgical Pathology Report Patient Name: ROCK ACOSTA Med. Rec. #: [id number] /Age/Gender: 1990 (Age: 29) / F Account: [id number] Location: [facility] OBS/MEDICAL DOCTOR Taken: 05/25/2020 Received: 05/26/2020 Reported: 06/01/2020 Physicians: Dianna De Leon M.D. Specimen(s) Received PLACENTA Clinical History , previous , nonreassuring heart rate Final Diagnosis PLACENTA, SECTION: 467 G THIRD TRIMESTER PLACENTA, TRIVASCULAR UMBILICAL CORD, AND PLACENTAL MEMBRANES WITH MECONIUM-LADEN MACROPHAGES Electronically Signed Bella Desouza M.D. Gross Description The specimen is received fresh labeled placenta and is a 467 gram, 18.0 x 16.5 x 2.5 cm. placenta with attached membranes and umbilical cord. The attached membranes are rey green, meconium stained, translucent with focal opacities and insert marginally. The umbilical cord measures 12.5 cm. in length and averages 0.9 cm. in diameter. The cord inserts eccentrically, 4 cm. to the nearest margin. No true knots or strictures are identified. Cut surface of the umbilical cord reveals 3 vessels. The surface is wong green, meconium stained with minimal fibrin deposition and appropriate caliber vessels. The maternal surface is red-brown with focal defects. Sectioning reveals red-brown, spongy parenchyma. No lesions are identified. [employer] sections are submitted in three cassettes as follows: 1- membrane rolls and umbilical cord; 2-3- full thickness sections of placenta. 05/27/2020 [facility]05/27/2020
== END 2020-05-27 13:40 | disposition home or self-care (01) | DRG 540 ==
LOC: JDEL 03:15 → JLDR 04:10 → J3W 14:15
PROVIDERS: ADMIT Obstetrics & Gynecology; ATTEND Obstetrics & Gynecology
PROC: 10D00Z1 Extraction of Products of Conception, Low, Open Approach (ICD-10-PCS; principal; 2020-05-25)
DX: O62.2 Other uterine inertia (principal); O76 Abnormality in fetal heart rate and rhythm complicating labor and delivery; O48.0 Post-term pregnancy; O99.214 Obesity complicating childbirth; E66.9 Obesity, unspecified; O99.013 Anemia complicating pregnancy, third trimester; D64.9 Anemia, unspecified; Z37.0 Single live birth; Z3A.40 40 weeks gestation of pregnancy
CPT/HCPCS: 36415; 36600; 80048; 82803; 85025; 85610; 85730; 86780; 86850; 86900; 86901; 88307-TC; 90715; U0003

== ENCOUNTER 2021-02-01 17:58 | Inpatient (IN) | payer OTHER ==
[2021-02-01 18:16] VITALS: BMI 33.5
[2021-02-01] MEDS ORDERED: ACETAMINOPHEN 1000 MG/100 ML VIAL (NON FORMULARY) IVPB ONE (20:22)
[2021-02-01] MEDS ORDERED: LACTATED RINGERS SOLUTION 1000 ML INFUS.BAG IV ONE (20:23)
[2021-02-01] MEDS ORDERED: ACETAMINOPHEN INJECTION 100 ML IVPB ONE (20:41)
[2021-02-01 20:53] LABS: BASO % 0.3 % (0-2.0); EOS % 1.9 % (0-4.5); HEMATOCRIT 33.8 % (32.4-45.2); HEMOGLOBIN 10.7 GM/dL (10.7-15.3); LYMPH % 23.8 % (8-40); MCH 24.8 pg (25.7-33.7); MCHC 31.6 g/dl (32.0-36.0); MEAN CELL VOLUME 78.3 fl (80-96); MEAN PLT VOLUME 8.1 fl (7.5-11.1); MONO % 6.9 % (3.8-10.2); NEUT % 67.1 % (42.8-82.8); PLATELET COUNT 274 K/MM3 (134-434); RBC 4.32 M/mm3 (3.60-5.2); WHITE BLOOD COUNT 5.8 K/mm3 (4.0-10.0)
[2021-02-01 21:00] LABS: URINE APPEARANCE CLOUDY; URINE BILIRUBIN NEGATIVE (NEGATIVE); URINE COLOR YELLOW; URINE GLUCOSE (UA) NEGATIVE (NEGATIVE); URINE KETONE NEGATIVE (NEGATIVE); URINE LEUK ESTERASE NEGATIVE (NEGATIVE); URINE NITRITE NEGATIVE (NEGATIVE); URINE PROTEIN NEGATIVE (NEGATIVE); URINE UROBILINOGEN 0.2 mg/dL (0.2-1.0)
[2021-02-01 21:08] LABS: ALBUMIN 3.6 g/dl (3.4-5.0); BLOOD UREA NITROGEN 15.4 mg/dL (7-18); CALCIUM 9.7 mg/dL (8.5-10.1)
[2021-02-01 21:11] LABS: CREATININE 0.7 mg/dL (0.55-1.3)
[2021-02-01 21:12] LABS: BILIRUBIN,TOTAL 0.3 mg/dL (0.2-1)
[2021-02-01 21:13] LABS: TOT PROT 7.6 g/dl (6.4-8.2)
[2021-02-02 01:00] LABS: MAGNESIUM 2.4 mg/dL (1.8-2.4)
[2021-02-02 01:03] LABS: PHOSPHOROUS 3.9 mg/dL (2.5-4.9)
[2021-02-02 08:26] LABS: BASO % 0.3 % (0-2.0); EOS % 1.5 % (0-4.5); HEMATOCRIT 32.7 % (32.4-45.2); HEMOGLOBIN 10.5 GM/dL (10.7-15.3); LYMPH % 28.6 % (8-40); MCHC 32.3 g/dl (32.0-36.0); MEAN CELL VOLUME 77.5 fl (80-96); MEAN PLT VOLUME 8.3 fl (7.5-11.1); MONO % 6.2 % (3.8-10.2); NEUT % 63.4 % (42.8-82.8); PLATELET COUNT 276 K/MM3 (134-434); RBC 4.22 M/mm3 (3.60-5.2); RDW 16.5 % (11.6-15.6); WHITE BLOOD COUNT 5.2 K/mm3 (4.0-10.0)
[2021-02-02 08:42] LABS: ALBUMIN 3.2 g/dl (3.4-5.0); CALCIUM 8.5 mg/dL (8.5-10.1)
[2021-02-02 08:43] LABS: BLOOD UREA NITROGEN 10.1 mg/dL (7-18); MAGNESIUM 1.9 mg/dL (1.8-2.4)
[2021-02-02 08:45] LABS: CREATININE 0.6 mg/dL (0.55-1.3)
[2021-02-02 08:46] LABS: PHOSPHOROUS 3.8 mg/dL (2.5-4.9)
[2021-02-02 08:47] LABS: BILIRUBIN,TOTAL 0.8 mg/dL (0.2-1); TOT PROT 6.6 g/dl (6.4-8.2)
[2021-02-02] MEDS ORDERED: ENOXAPARIN NA (PORCINE) 40 MG/0.4 ML DISP.SYRIN SQ SCH (10:00)
[2021-02-02 10:23] LABS: HIV INTERPRETATION NEGATIVE (NEGATIVE)
[2021-02-02 10:24] LABS: INR 1.01 (0.83-1.09); PROTHROMBIN TIME (PATIENT) 12.2 SEC (9.7-13.0)
[2021-02-02] MEDS ORDERED: MELATONIN 5 MG TABLETS PO PRN (20:44)
[2021-02-02] MEDS: ACETAMINOPHEN 325 MG TABLET (FP) PO PRN (21:13)
[2021-02-03 09:12] LABS: BASO % 0.4 % (0-2.0); EOS % 1.3 % (0-4.5); HEMATOCRIT 33.5 % (32.4-45.2); HEMOGLOBIN 10.7 GM/dL (10.7-15.3); LYMPH % 18.1 % (8-40); MCHC 31.9 g/dl (32.0-36.0); MEAN CELL VOLUME 78.3 fl (80-96); MEAN PLT VOLUME 8.2 fl (7.5-11.1); MONO % 7.3 % (3.8-10.2); NEUT % 72.9 % (42.8-82.8); PLATELET COUNT 275 K/MM3 (134-434); RBC 4.28 M/mm3 (3.60-5.2); RDW 17.1 % (11.6-15.6); WHITE BLOOD COUNT 5.2 K/mm3 (4.0-10.0)
[2021-02-03 09:25] LABS: BLOOD UREA NITROGEN 11.2 mg/dL (7-18); CALCIUM 9.1 mg/dL (8.5-10.1)
[2021-02-03 09:26] LABS: ALBUMIN 3.2 g/dl (3.4-5.0)
[2021-02-03 09:28] LABS: CREATININE 0.7 mg/dL (0.55-1.3); URIC ACID 3.3 mg/dL (2.6-7.2)
[2021-02-03 09:30] LABS: BILIRUBIN,TOTAL 0.3 mg/dL (0.2-1)
[2021-02-03 10:08] LABS: CARCINOEMBRYONIC ANTIGEN 2.6 ng/mL (0.0-4.7)
[2021-02-03 13:13] LABS: HEP B CORE AB, TOT Negative (Negative)
[2021-02-03] MEDS: ACETAMINOPHEN 325 MG TABLET (FP) PO PRN (19:47)
[2021-02-03] MEDS ORDERED: ACETAMINOPHEN 1000 MG/100 ML VIAL (NON FORMULARY) IVPB ONE (23:03)
[2021-02-04 06:35] VITALS: BP 123/59; PULSE 72; TEMP 98.6
[2021-02-04 07:08] LABS: IGA IMMUNOGLOBULIN 305 mg/dL (87-352); IGG QN IMMUNOGLOBULIN 1120 mg/dL (586-1602); IGM QN SERUM 211 mg/dL (26-217)
[2021-02-04 08:59] LABS: BASO % 0.5 % (0-2.0); HEMATOCRIT 34.1 % (32.4-45.2); LYMPH % 17.4 % (8-40); MCH 24.9 pg (25.7-33.7); MCHC 32.2 g/dl (32.0-36.0); MEAN CELL VOLUME 77.4 fl (80-96); MEAN PLT VOLUME 8.1 fl (7.5-11.1); MONO % 7.8 % (3.8-10.2); NEUT % 73.3 % (42.8-82.8); PLATELET COUNT 280 K/MM3 (134-434); RDW 16.7 % (11.6-15.6); WHITE BLOOD COUNT 6.2 K/mm3 (4.0-10.0)
[2021-02-04 09:18] LABS: CALCIUM 8.9 mg/dL (8.5-10.1)
[2021-02-04 09:19] LABS: ALBUMIN 3.4 g/dl (3.4-5.0); BLOOD UREA NITROGEN 10.4 mg/dL (7-18)
[2021-02-04 09:21] LABS: CREATININE 0.6 mg/dL (0.55-1.3); PHOSPHOROUS 3.6 mg/dL (2.5-4.9)
[2021-02-04 09:23] LABS: BILIRUBIN,TOTAL 0.4 mg/dL (0.2-1); TOT PROT 7.2 g/dl (6.4-8.2)
[2021-02-04] MEDS: ACETAMINOPHEN 325 MG TABLET (FP) PO PRN (09:54)
[2021-02-04] MEDS ORDERED: ENOXAPARIN NA (PORCINE) 40 MG/0.4 ML DISP.SYRIN SQ SCH (10:00)
== END 2021-02-04 14:48 | disposition home or self-care (01) | DRG 694 ==
LOC: JER 17:58 → JERBED 02-02 00:09 → J6S 02-02 03:24
PROVIDERS: ADMIT Internal Medicine; ATTEND Student in an Organized Health Care Education/Training Program
PROC: 0JB83ZX Excision of Abdomen Subcutaneous Tissue and Fascia, Percutaneous Approach, Diagnostic (ICD-10-PCS; principal; 2021-02-03)
DX: D49.89 Neoplasm of unspecified behavior of other specified sites (principal); C7A.8 Other malignant neuroendocrine tumors; R59.1 Generalized enlarged lymph nodes; R19.09 Other intra-abdominal and pelvic swelling, mass and lump; R10.9 Unspecified abdominal pain
CPT/HCPCS: 36415; 38505; 71045-TC-FY; 71260-TC; 72157-TC; 74177-TC; 80053; 80074; 81003; 82105; 82164; 82378; 82728; 82784; 83540; 83550; 83615; 83690; 83735; 83993; 84100; 84550; 84703; 85025; 85610; 85651; 86038; 86301; 86304; 86308; 86682; 86704; 86706; 86707; 86708; 86709; 86803; 87045; 87046; 87086; 87177; 87209; 87340; 87389; 88305-TC; 93005; 93010; 99285-25; A9579; C9803; J0131; Q9967; U0003; U0005

== ENCOUNTER 2021-03-13 04:45 | Day surgery (SDC) | payer OTHER ==
[2021-03-10 16:21] VITALS: BMI 32.3
[2021-03-13] MEDS ORDERED: SODIUM CHLORIDE 1,000 ML IV ONE (11:00)
[2021-03-13] MEDS ORDERED: MIDAZOLAM HCL 2 MG/2 ML SINGLE DOSE VIAL ONE (11:59)
[2021-03-13] MEDS ORDERED: MIDAZOLAM HCL 2 MG/2 ML SINGLE DOSE VIAL IVPUSH ONE ×2 (12:55→13:05)
[2021-03-13 15:32] VITALS: BP 126/72; PULSE 88; TEMP 98.3
[2021-03-13 16:00] LABS: BASO % 0.2 % (0-2.0); EOS % 1.5 % (0-4.5); HEMATOCRIT 31.5 % (32.4-45.2); LYMPH % 26.2 % (8-40); MCH 24.1 pg (25.7-33.7); MCHC 31.6 g/dl (32.0-36.0); MEAN CELL VOLUME 76.3 fl (80-96); MEAN PLT VOLUME 7.9 fl (7.5-11.1); MONO % 7.5 % (3.8-10.2); NEUT % 64.6 % (42.8-82.8); PLATELET COUNT 352 K/MM3 (134-434); RBC 4.14 M/mm3 (3.60-5.2); RDW 17.1 % (11.6-15.6); WHITE BLOOD COUNT 3.6 K/mm3 (4.0-10.0)
[2021-03-13] MEDS ORDERED: SODIUM CHLORIDE 1,000 ML IV STA (16:19)
[2021-03-13 16:22] LABS: CALCIUM 8.7 mg/dL (8.5-10.1)
[2021-03-13 16:23] LABS: ALBUMIN 3.3 g/dl (3.4-5.0); MAGNESIUM 2.1 mg/dL (1.8-2.4)
[2021-03-13 16:25] LABS: URIC ACID 2.4 mg/dL (2.6-7.2)
[2021-03-13 16:26] LABS: CREATININE 0.8 mg/dL (0.55-1.3)
[2021-03-13 16:27] LABS: BILIRUBIN,TOTAL 0.3 mg/dL (0.2-1); TOT PROT 7.6 g/dl (6.4-8.2)
== END 2021-03-13 18:30 | disposition home or self-care (01) ==
LOC: JONCNONCHE 04:45 → JRADIR 04:45 → JONCNONCHE 18:30
PROVIDERS: ATTEND Internal Medicine Hematology & Oncology
PROC: 0JH63WZ Insertion of Totally Implantable Vascular Access Device into Chest Subcutaneous Tissue and Fascia, Percutaneous Approach (ICD-10-PCS; principal; 2021-03-13)
DX: C23 Malignant neoplasm of gallbladder (principal)
CPT/HCPCS: 36561; 96360; 96361; C1788; 36415; 77001-TC-FY; 80053; 83615; 83735; 84550; 85025

== ENCOUNTER 2021-03-14 07:10 | Day surgery (SDC) | payer OTHER ==
[2021-03-14] MEDS ORDERED: SODIUM CHLORIDE 1,000 ML IV ONE (10:00)
[2021-03-14] MEDS ORDERED: PALONOSETRON HCL 0.25 MG/5 ML VIAL IVPUSH ONE (10:00)
[2021-03-14] MEDS ORDERED: DEXAMETHASONE SODIUM PHOSPHATE 12 MG in SODIUM CHLORIDE 50 ML IVPB ONE (10:00)
[2021-03-14] MEDS ORDERED: FOSAPREPITANT DIMEGLUMINE 150 MG in SODIUM CHLORIDE 150 ML IVPB ONE (10:00)
[2021-03-14] MEDS ORDERED: CISPLATIN IV ONE (10:30)
[2021-03-14] MEDS ORDERED: SODIUM CHLORIDE IV ONE (10:30)
[2021-03-14] MEDS ORDERED: POTASSIUM CHLORIDE 10 MEQ, MAGNESIUM SULFATE 1 GM in SODIUM CHLORIDE 1,000 ML IVPB ONE (12:30)
[2021-03-14] MEDS: SODIUM CHLORIDE 0.9% IV ONE ×2 (14:36→16:42)
[2021-03-14] MEDS: ETOPOSIDE IV ONE ×2 (14:36→16:42)
[2021-03-14 17:14] VITALS: TEMP 98.5
[2021-03-14 18:48] VITALS: BP 114/70; PULSE 84
[2021-03-15 14:08] LABS: HEP B CORE AB, TOT Negative (Negative)
== END 2021-03-14 18:48 | disposition home or self-care (01) ==
LOC: JONCCHEMO 07:10
PROVIDERS: ATTEND Internal Medicine Hematology & Oncology
DX: Z51.11 Encounter for antineoplastic chemotherapy (principal); C7A.1 Malignant poorly differentiated neuroendocrine tumors
CPT/HCPCS: 36415; 83735; 84703; 86704; 86706; 86707; 86708; 86709; 86803; 87340; 96361; 96367; 96375; 96411; 96413; 96415; J1453; J2469; J9181

== ENCOUNTER → 2021-03-15 | Day surgery (SDC) | payer OTHER ==
[~2021-03-15] MED LIST: DEXAMETHASONE SOD PHOSPHATE 4 MG/1 ML VIAL IVPB ONE; DEXAMETHASONE SODIUM PHOSPHATE 8 MG in SODIUM CHLORIDE 50 ML IVPB ONE; ETOPOSIDE IV ONE; PORTA CATH FLUSH 10 ML IVPUSH ONE; SODIUM CHLORIDE 0.9% IV ONE; SODIUM CHLORIDE 1,000 ML IV STA; SODIUM CHLORIDE 250 ML IV ONE
[2021-03-15 13:53] LABS: BASO % 0.1 % (0-2.0); HEMATOCRIT 29.8 % (32.4-45.2); HEMOGLOBIN 9.6 GM/dL (10.7-15.3); LYMPH % 6.8 % (8-40); MCH 24.4 pg (25.7-33.7); MCHC 32.3 g/dl (32.0-36.0); MEAN CELL VOLUME 75.4 fl (80-96); MEAN PLT VOLUME 7.8 fl (7.5-11.1); MONO % 4.6 % (3.8-10.2); NEUT % 88.5 % (42.8-82.8); PLATELET COUNT 331 K/MM3 (134-434); RBC 3.95 M/mm3 (3.60-5.2); RDW 17.3 % (11.6-15.6); WHITE BLOOD COUNT 6.8 K/mm3 (4.0-10.0)
[2021-03-15 14:24] LABS: ALBUMIN 3.2 g/dl (3.4-5.0); CALCIUM 8.5 mg/dL (8.5-10.1)
[2021-03-15 14:25] LABS: BLOOD UREA NITROGEN 6.4 mg/dL (7-18); MAGNESIUM 2.2 mg/dL (1.8-2.4)
[2021-03-15 14:28] LABS: CREATININE 0.8 mg/dL (0.55-1.3)
[2021-03-15 14:29] LABS: BILIRUBIN,TOTAL 0.3 mg/dL (0.2-1); TOT PROT 7.6 g/dl (6.4-8.2)
[2021-03-15 14:32] LABS: URIC ACID 1.5 mg/dL (2.6-7.2)
[2021-03-15 17:18] VITALS: BP 105/57; PULSE 53; TEMP 98.6
== END | disposition home or self-care (01) ==
LOC: JONCCHEMO 06:59
PROVIDERS: ATTEND Internal Medicine Hematology & Oncology
DX: Z51.11 Encounter for antineoplastic chemotherapy (principal); C7A.1 Malignant poorly differentiated neuroendocrine tumors
CPT/HCPCS: 36415; 80053; 83615; 83735; 84550; 85025; 96361; 96367; 96413; 96415; J9181

== ENCOUNTER 2021-03-16 07:06 | Day surgery (SDC) | payer OTHER ==
[2021-03-16] MEDS ORDERED: SODIUM CHLORIDE 250 ML IV ONE (10:00)
[2021-03-16] MEDS ORDERED: DEXAMETHASONE SODIUM PHOSPHATE 8 MG in SODIUM CHLORIDE 50 ML IVPB ONE (10:00)
[2021-03-16] MEDS ORDERED: ETOPOSIDE 200 MG in SODIUM CHLORIDE 0.9% 500 ML IV ONE (10:30)
[2021-03-16] MEDS ORDERED: SODIUM CHLORIDE 500 ML IV STA (12:51)
[2021-03-16 16:35] VITALS: PULSE 71; TEMP 98.6
[2021-03-16 17:36] VITALS: BP 120/69
== END 2021-03-16 17:37 | disposition home or self-care (01) ==
LOC: JONCCHEMO 07:06
PROVIDERS: ATTEND Internal Medicine Hematology & Oncology
DX: Z51.11 Encounter for antineoplastic chemotherapy (principal); C7A.1 Malignant poorly differentiated neuroendocrine tumors
CPT/HCPCS: 96361; 96367; 96413; 96415

== ENCOUNTER 2021-03-17 07:11 | Day surgery (SDC) | payer OTHER ==
[2021-03-17] MEDS ORDERED: PEGFILGRASTIM-CBQV (UDENYCA) 6 MG/0.6 ML SYRINGE SQ ONE (14:00)
[2021-03-17] MEDS ORDERED: SODIUM CHLORIDE 500 ML IV STA (14:57)
[2021-03-17 17:27] VITALS: TEMP 98.6
[2021-03-17 17:28] VITALS: BP 127/83; PULSE 91
== END 2021-03-17 17:25 | disposition home or self-care (01) ==
LOC: JONCCHEMO 07:11
PROVIDERS: ATTEND Internal Medicine Hematology & Oncology
PROC: 3E0437Z Introduction of Electrolytic and Water Balance Substance into Central Vein, Percutaneous Approach (ICD-10-PCS; principal; 2021-03-17)
DX: C7A.1 Malignant poorly differentiated neuroendocrine tumors (principal)
CPT/HCPCS: 96360; 96361; 96372; Q5111

== ENCOUNTER 2021-03-20 07:18 | Day surgery (SDC) | payer OTHER ==
[2021-03-20] MEDS ORDERED: SODIUM CHLORIDE 500 ML IV SCH (08:00)
[2021-03-20 15:27] LABS: EOS % 0.4 % (0-4.5); HEMATOCRIT 35.9 % (32.4-45.2); HEMOGLOBIN 11.6 GM/dL (10.7-15.3); LYMPH % 6.2 % (8-40); MCH 23.9 pg (25.7-33.7); MCHC 32.3 g/dl (32.0-36.0); MEAN CELL VOLUME 73.9 fl (80-96); MEAN PLT VOLUME 7.6 fl (7.5-11.1); MONO % 1.5 % (3.8-10.2); NEUT % 91.9 % (42.8-82.8); PLATELET COUNT 191 K/MM3 (134-434); RBC 4.86 M/mm3 (3.60-5.2); WHITE BLOOD COUNT 16.8 K/mm3 (4.0-10.0)
[2021-03-20] MEDS ORDERED: ONDANSETRON INJECTION 8 MG in SODIUM CHLORIDE 50 ML IVPB ONE (15:30)
[2021-03-20] MEDS ORDERED: SODIUM CHLORIDE 500 ML IV ONE (16:00)
[2021-03-20 16:04] LABS: CALCIUM 9.1 mg/dL (8.5-10.1)
[2021-03-20 16:06] LABS: BLOOD UREA NITROGEN 16.3 mg/dL (7-18)
[2021-03-20 16:08] LABS: URIC ACID 2.4 mg/dL (2.6-7.2)
[2021-03-20 16:09] LABS: ALBUMIN 3.9 g/dl (3.4-5.0); CREATININE 1.1 mg/dL (0.55-1.3)
[2021-03-20 16:10] LABS: BILIRUBIN,TOTAL 0.5 mg/dL (0.2-1); TOT PROT 8.7 g/dl (6.4-8.2)
[2021-03-20 16:10] LABS: ALBUMIN 3.7 g/dl (3.4-5.0)
[2021-03-20 16:12] LABS: BILIRUBIN,DIRECT 0.2 mg/dL (0.0-0.2)
[2021-03-20 16:15] LABS: BILIRUBIN,TOTAL 0.7 mg/dL (0.2-1); TOT PROT 8.5 g/dl (6.4-8.2)
[2021-03-20 16:31] LABS: MAGNESIUM 2.1 mg/dL (1.8-2.4)
[2021-03-20 17:01] VITALS: TEMP 97.6
[2021-03-20 17:34] VITALS: BP 107/84; PULSE 90
[2021-03-20 18:18] LABS: PLATELET ESTIMATE ADEQUATE
== END 2021-03-20 17:35 | disposition home or self-care (01) ==
LOC: JONCCHEMO 07:18
PROVIDERS: ATTEND Internal Medicine Hematology & Oncology
PROC: 3E0337Z Introduction of Electrolytic and Water Balance Substance into Peripheral Vein, Percutaneous Approach (ICD-10-PCS; principal; 2021-03-20)
DX: C7A.1 Malignant poorly differentiated neuroendocrine tumors (principal); Z76.89 Persons encountering health services in other specified circumstances
CPT/HCPCS: 36415; 80053; 80076; 83615; 83735; 84550; 85025; 96360; 96361

== ENCOUNTER 2021-03-22 06:34 | Day surgery (SDC) | payer OTHER ==
[2021-03-22] MEDS ORDERED: SODIUM CHLORIDE 1,000 ML IV ONE (12:00)
[2021-03-22 14:13] LABS: BASO % 0.4 % (0-2.0); EOS % 1.2 % (0-4.5); HEMATOCRIT 33.5 % (32.4-45.2); HEMOGLOBIN 10.8 GM/dL (10.7-15.3); LYMPH % 30.5 % (8-40); MCHC 32.4 g/dl (32.0-36.0); MEAN CELL VOLUME 74.1 fl (80-96); MEAN PLT VOLUME 7.8 fl (7.5-11.1); MONO % 8.1 % (3.8-10.2); NEUT % 59.8 % (42.8-82.8); PLATELET COUNT 131 K/MM3 (134-434); RBC 4.52 M/mm3 (3.60-5.2); RDW 16.5 % (11.6-15.6); WHITE BLOOD COUNT 3.6 K/mm3 (4.0-10.0)
[2021-03-22] MEDS ORDERED: SODIUM CHLORIDE 500 ML IV ONE (14:45)
[2021-03-22 14:56] LABS: ALBUMIN 3.8 g/dl (3.4-5.0); BLOOD UREA NITROGEN 12.4 mg/dL (7-18)
[2021-03-22 14:59] LABS: CREATININE 1.2 mg/dL (0.55-1.3); URIC ACID 2.5 mg/dL (2.6-7.2)
[2021-03-22 15:01] LABS: BILIRUBIN,TOTAL 0.4 mg/dL (0.2-1); TOT PROT 8.2 g/dl (6.4-8.2)
[2021-03-22 17:09] VITALS: TEMP 99
[2021-03-22 17:26] VITALS: BP 130/50; PULSE 59
[2021-03-22] MEDS ORDERED: PORTA CATH FLUSH 10 ML IVPUSH ONE (17:26)
== END 2021-03-22 16:15 | disposition home or self-care (01) ==
LOC: JONCNONCHE 06:34
PROVIDERS: ATTEND Internal Medicine Hematology & Oncology
PROC: 3E0437Z Introduction of Electrolytic and Water Balance Substance into Central Vein, Percutaneous Approach (ICD-10-PCS; principal; 2021-03-22)
DX: C7A.1 Malignant poorly differentiated neuroendocrine tumors (principal); Z76.89 Persons encountering health services in other specified circumstances
CPT/HCPCS: 36415; 80053; 83615; 84550; 85025; 96360

== ENCOUNTER 2021-03-24 07:30 | Day surgery (SDC) | payer OTHER ==
[~2021-03-24 07:30] MED LIST changes: -DEXAMETHASONE SOD PHOSPHATE 4 MG/1 ML VIAL IVPB ONE; -DEXAMETHASONE SODIUM PHOSPHATE 8 MG in SODIUM CHLORIDE 50 ML IVPB ONE; -ETOPOSIDE IV ONE; -PORTA CATH FLUSH 10 ML IVPUSH ONE; -SODIUM CHLORIDE 0.9% IV ONE; +SODIUM CHLORIDE 1,000 ML IV ONE; -SODIUM CHLORIDE 1,000 ML IV STA; -SODIUM CHLORIDE 250 ML IV ONE
[2021-03-24] MEDS ORDERED: SODIUM CHLORIDE 1,000 ML IV STA (13:42)
[2021-03-24 13:43] LABS: BASO % 0.5 % (0-2.0); EOS % 2.4 % (0-4.5); HEMATOCRIT 28.2 % (32.4-45.2); LYMPH % 46.8 % (8-40); MCH 24.1 pg (25.7-33.7); MEAN CELL VOLUME 75.3 fl (80-96); MEAN PLT VOLUME 8.5 fl (7.5-11.1); MONO % 16.6 % (3.8-10.2); NEUT % 33.7 % (42.8-82.8); PLATELET COUNT 90 K/MM3 (134-434); RBC 3.75 M/mm3 (3.60-5.2); RDW 16.6 % (11.6-15.6); WHITE BLOOD COUNT 2.6 K/mm3 (4.0-10.0)
[2021-03-24 14:08] LABS: CALCIUM 9.1 mg/dL (8.5-10.1)
[2021-03-24 14:09] LABS: ALBUMIN 3.2 g/dl (3.4-5.0); BLOOD UREA NITROGEN 10.9 mg/dL (7-18)
[2021-03-24 14:11] LABS: URIC ACID 2.7 mg/dL (2.6-7.2)
[2021-03-24 14:12] LABS: CREATININE 0.7 mg/dL (0.55-1.3)
[2021-03-24 14:13] LABS: BILIRUBIN,TOTAL 0.2 mg/dL (0.2-1); TOT PROT 6.9 g/dl (6.4-8.2)
[2021-03-24 14:31] LABS: ANISOCYTOSIS 1+; MACROCYTOSIS 0; PLATELET ESTIMATE DECREASED; TOXIC GRANULATION 2+
[2021-03-24 16:57] VITALS: TEMP 98.8
[2021-03-24 17:02] VITALS: BP 102/64; PULSE 68
== END 2021-03-24 16:30 | disposition home or self-care (01) ==
LOC: JONCNONCHE 07:30
PROVIDERS: ATTEND Internal Medicine Hematology & Oncology
PROC: 3E0437Z Introduction of Electrolytic and Water Balance Substance into Central Vein, Percutaneous Approach (ICD-10-PCS; principal; 2021-03-24)
DX: C7A.1 Malignant poorly differentiated neuroendocrine tumors (principal); Z76.89 Persons encountering health services in other specified circumstances
CPT/HCPCS: 36415; 80053; 83615; 84550; 85025; 96360; 96361

== ENCOUNTER → 2021-03-28 | Day surgery (SDC) | payer OTHER | END | disposition home or self-care (01) | LOC: JRADIR 10:58 | PROVIDERS: ATTEND Internal Medicine Hematology & Oncology | PROC: B518YZA Fluoroscopy of Superior Vena Cava using Other Contrast, Guidance (ICD-10-PCS; principal; 2021-03-28) | DX: Z45.2 Encounter for adjustment and management of vascular access device (principal); C7A.1 Malignant poorly differentiated neuroendocrine tumors | CPT/HCPCS: 36598 ==

== ENCOUNTER → 2021-03-31 | Day surgery (SDC) | payer OTHER ==
[2021-03-31 14:43] LABS: BASO % 0.4 % (0-2.0); EOS % 0.4 % (0-4.5); LYMPH % 26.9 % (8-40); MCH 24.4 pg (25.7-33.7); MCHC 32.1 g/dl (32.0-36.0); MEAN CELL VOLUME 76.1 fl (80-96); MEAN PLT VOLUME 7.6 fl (7.5-11.1); MONO % 12.2 % (3.8-10.2); NEUT % 60.1 % (42.8-82.8); PLATELET COUNT 540 K/MM3 (134-434); RBC 4.08 M/mm3 (3.60-5.2); WHITE BLOOD COUNT 7.9 K/mm3 (4.0-10.0)
[2021-03-31 15:11] LABS: CALCIUM 9.4 mg/dL (8.5-10.1)
[2021-03-31 15:12] LABS: ALBUMIN 3.6 g/dl (3.4-5.0)
[2021-03-31 15:15] LABS: CREATININE 0.7 mg/dL (0.55-1.3)
[2021-03-31 15:16] LABS: BILIRUBIN,TOTAL 0.3 mg/dL (0.2-1)
[2021-03-31 15:17] LABS: TOT PROT 7.7 g/dl (6.4-8.2)
== END | disposition home or self-care (01) ==
LOC: JONCCHEMO 06:28
PROVIDERS: ATTEND Internal Medicine Hematology & Oncology
DX: Z53.8 Procedure and treatment not carried out for other reasons (principal)
CPT/HCPCS: 36415; 80053; 83735; 85025; 96365

== ENCOUNTER 2021-04-04 07:14 | Day surgery (SDC) | payer OTHER ==
[2021-04-04] MEDS ORDERED: SODIUM CHLORIDE 1,000 ML IV ONE (09:00)
[2021-04-04 09:46] LABS: BASO % 0.5 % (0-2.0); EOS % 0.5 % (0-4.5); HEMATOCRIT 29.3 % (32.4-45.2); HEMOGLOBIN 9.6 GM/dL (10.7-15.3); LYMPH % 22.1 % (8-40); MCH 25.4 pg (25.7-33.7); MCHC 32.9 g/dl (32.0-36.0); MEAN PLT VOLUME 7.1 fl (7.5-11.1); MONO % 10.7 % (3.8-10.2); NEUT % 66.2 % (42.8-82.8); PLATELET COUNT 551 K/MM3 (134-434); RDW 18.9 % (11.6-15.6); WHITE BLOOD COUNT 5.4 K/mm3 (4.0-10.0)
[2021-04-04] MEDS ORDERED: PALONOSETRON HCL 0.25 MG/5 ML VIAL IVPUSH ONE (10:00)
[2021-04-04] MEDS ORDERED: FOSAPREPITANT DIMEGLUMINE 150 MG in SODIUM CHLORIDE 150 ML IVPB ONE (10:00)
[2021-04-04] MEDS ORDERED: DEXAMETHASONE SODIUM PHOSPHATE 12 MG in SODIUM CHLORIDE 50 ML IVPB ONE (10:00)
[2021-04-04 10:04] LABS: ALBUMIN 3.4 g/dl (3.4-5.0); BLOOD UREA NITROGEN 7.6 mg/dL (7-18); CALCIUM 9.1 mg/dL (8.5-10.1)
[2021-04-04 10:05] LABS: MAGNESIUM 1.8 mg/dL (1.8-2.4)
[2021-04-04 10:08] LABS: CREATININE 0.8 mg/dL (0.55-1.3)
[2021-04-04 10:09] LABS: BILIRUBIN,TOTAL 0.2 mg/dL (0.2-1); TOT PROT 7.2 g/dl (6.4-8.2)
[2021-04-04] MEDS ORDERED: CISPLATIN IV ONE (10:30)
[2021-04-04] MEDS ORDERED: SODIUM CHLORIDE IV ONE (10:30)
[2021-04-04] MEDS ORDERED: ETOPOSIDE 200 MG in SODIUM CHLORIDE 0.9% 500 ML IV ONE (12:30)
[2021-04-04] MEDS ORDERED: POTASSIUM CHLORIDE 10 MEQ, MAGNESIUM SULFATE 1 GM in SODIUM CHLORIDE 1,000 ML IVPB ONE (14:30)
[2021-04-04 17:58] VITALS: TEMP 99.1
[2021-04-04 18:14] VITALS: BP 115/75; PULSE 103
== END 2021-04-04 18:16 | disposition home or self-care (01) ==
LOC: JONCCHEMO 07:14
PROVIDERS: ATTEND Internal Medicine Hematology & Oncology
PROC: 3E04305 Introduction of Other Antineoplastic into Central Vein, Percutaneous Approach (ICD-10-PCS; principal; 2021-04-04)
PROC: 3E043GC Introduction of Other Therapeutic Substance into Central Vein, Percutaneous Approach (ICD-10-PCS; 2021-04-04)
PROC: 3E0437Z Introduction of Electrolytic and Water Balance Substance into Central Vein, Percutaneous Approach (ICD-10-PCS; 2021-04-04)
DX: Z51.11 Encounter for antineoplastic chemotherapy (principal); C23 Malignant neoplasm of gallbladder
CPT/HCPCS: 36415; 80053; 83735; 85025; 96361; 96366; 96367; 96375; 96411; 96413; 96415; 96417; J1453; J2469

== ENCOUNTER 2021-04-05 07:02 | Day surgery (SDC) | payer OTHER ==
[2021-04-05] MEDS ORDERED: SODIUM CHLORIDE 1,000 ML IV ONE (09:00)
[2021-04-05] MEDS ORDERED: SODIUM CHLORIDE 250 ML IVPB ONE (09:30)
[2021-04-05] MEDS ORDERED: DEXAMETHASONE SODIUM PHOSPHATE 10 MG in SODIUM CHLORIDE 50 ML IVPB ONE (10:00)
[2021-04-05] MEDS ORDERED: ETOPOSIDE 200 MG in SODIUM CHLORIDE 0.9% 500 ML IV ONE (10:30)
[2021-04-05 18:36] VITALS: TEMP 99.8
[2021-04-05 18:56] VITALS: BP 121/80; PULSE 95
== END 2021-04-05 18:40 | disposition home or self-care (01) ==
LOC: JONCCHEMO 07:02
PROVIDERS: ATTEND Internal Medicine Hematology & Oncology
PROC: 3E04305 Introduction of Other Antineoplastic into Central Vein, Percutaneous Approach (ICD-10-PCS; principal; 2021-04-05)
PROC: 3E043GC Introduction of Other Therapeutic Substance into Central Vein, Percutaneous Approach (ICD-10-PCS; 2021-04-05)
PROC: 3E0437Z Introduction of Electrolytic and Water Balance Substance into Central Vein, Percutaneous Approach (ICD-10-PCS; 2021-04-05)
DX: Z51.11 Encounter for antineoplastic chemotherapy (principal); C23 Malignant neoplasm of gallbladder
CPT/HCPCS: 96361; 96375; 96413; 96415

== ENCOUNTER 2021-04-06 08:21 | Day surgery (SDC) | payer OTHER ==
[2021-04-06] MEDS ORDERED: SODIUM CHLORIDE 1,000 ML IV ONE (09:00)
[2021-04-06] MEDS ORDERED: DEXAMETHASONE SODIUM PHOSPHATE 10 MG in SODIUM CHLORIDE 50 ML IVPB ONE (10:00)
[2021-04-06] MEDS ORDERED: ETOPOSIDE 200 MG in SODIUM CHLORIDE 0.9% 500 ML IV ONE (10:30)
[2021-04-06 15:11] LABS: BASO % 0.4 % (0-2.0); HEMATOCRIT 30.8 % (32.4-45.2); HEMOGLOBIN 9.9 GM/dL (10.7-15.3); LYMPH % 16.3 % (8-40); MCH 24.7 pg (25.7-33.7); MEAN CELL VOLUME 77.4 fl (80-96); MEAN PLT VOLUME 7.1 fl (7.5-11.1); MONO % 6.5 % (3.8-10.2); NEUT % 76.8 % (42.8-82.8); PLATELET COUNT 595 K/MM3 (134-434); RBC 3.98 M/mm3 (3.60-5.2); RDW 20.2 % (11.6-15.6); WHITE BLOOD COUNT 7.2 K/mm3 (4.0-10.0)
[2021-04-06 15:31] LABS: CALCIUM 8.5 mg/dL (8.5-10.1)
[2021-04-06 15:32] LABS: ALBUMIN 3.4 g/dl (3.4-5.0); BLOOD UREA NITROGEN 10.8 mg/dL (7-18)
[2021-04-06 15:35] LABS: CREATININE 0.8 mg/dL (0.55-1.3)
[2021-04-06 15:36] LABS: BILIRUBIN,TOTAL 0.3 mg/dL (0.2-1); TOT PROT 7.2 g/dl (6.4-8.2)
[2021-04-06] MEDS ORDERED: ONDANSETRON 4 MG/2 ML VIAL IVPB ONE (16:48)
[2021-04-06] MEDS ORDERED: ONDANSETRON INJECTION 8 MG in SODIUM CHLORIDE 50 ML IVPB ONE (17:00)
[2021-04-06 17:14] VITALS: TEMP 98.6
[2021-04-06] MEDS ORDERED: PORTA CATH FLUSH 10 ML IVPUSH ONE (17:14)
[2021-04-06 19:07] VITALS: BP 143/78; PULSE 69
== END 2021-04-06 19:00 | disposition home or self-care (01) ==
LOC: JONCNONCHE 08:21
PROVIDERS: ATTEND Internal Medicine Hematology & Oncology
PROC: 3E04305 Introduction of Other Antineoplastic into Central Vein, Percutaneous Approach (ICD-10-PCS; principal; 2021-04-06)
PROC: 3E043GC Introduction of Other Therapeutic Substance into Central Vein, Percutaneous Approach (ICD-10-PCS; 2021-04-06)
PROC: 3E0437Z Introduction of Electrolytic and Water Balance Substance into Central Vein, Percutaneous Approach (ICD-10-PCS; 2021-04-06)
DX: Z51.11 Encounter for antineoplastic chemotherapy (principal); C23 Malignant neoplasm of gallbladder
CPT/HCPCS: 36415; 80053; 83735; 85025; 96361; 96367; 96375; 96413; 96415

== ENCOUNTER 2021-04-07 08:59 | Day surgery (SDC) | payer OTHER ==
[2021-04-07] MEDS ORDERED: PEGFILGRASTIM-CBQV (UDENYCA) 6 MG/0.6 ML SYRINGE SQ ONE (09:00)
[2021-04-07] MEDS ORDERED: SODIUM CHLORIDE 1,000 ML IV SCH ×2 (14:00)
[2021-04-07] MEDS ORDERED: MAGNESIUM 2GM/50ML STERILE WATER IVPB IVPB ONE (14:30)
[2021-04-07] MEDS ORDERED: ONDANSETRON 4 MG/2 ML VIAL IVPB ONE (16:28)
[2021-04-07] MEDS ORDERED: WATER IVPB ONE (16:45)
[2021-04-07] MEDS ORDERED: ONDANSETRON IVPB ONE (16:45)
[2021-04-07] MEDS ORDERED: WATER IVPUSH ONE (16:45)
[2021-04-07] MEDS ORDERED: ONDANSETRON IVPUSH ONE (16:45)
[2021-04-07] MEDS ORDERED: DEXTROSE 5% IVPB ONE (16:45)
[2021-04-07] MEDS ORDERED: DEXTROSE 5% IVPUSH ONE (16:45)
[2021-04-07 17:43] VITALS: TEMP 1400
[2021-04-07] MEDS ORDERED: DEXAMETHASONE SOD PHOSPHATE 20 MG/5 ML VIAL IVPB ONE (18:03)
[2021-04-07] MEDS ORDERED: PROCHLORPERAZINE MALEATE 5 MG TABLET PO ONE (18:03)
[2021-04-07] MEDS ORDERED: DEXAMETHASONE INJECTION 8 MG in DEXTROSE 5%-WATER - 50 ML IVPB ONE (18:15)
[2021-04-07 18:58] VITALS: BP 142/76; PULSE 77
== END 2021-04-07 19:02 | disposition home or self-care (01) ==
LOC: JONCCHEMO 08:59
PROVIDERS: ATTEND Internal Medicine Hematology & Oncology
PROC: 3E033GC Introduction of Other Therapeutic Substance into Peripheral Vein, Percutaneous Approach (ICD-10-PCS; principal; 2021-04-07)
PROC: 3E0337Z Introduction of Electrolytic and Water Balance Substance into Peripheral Vein, Percutaneous Approach (ICD-10-PCS; 2021-04-07)
PROC: 3E013GC Introduction of Other Therapeutic Substance into Subcutaneous Tissue, Percutaneous Approach (ICD-10-PCS; 2021-04-07)
DX: Z76.89 Persons encountering health services in other specified circumstances (principal); C23 Malignant neoplasm of gallbladder
CPT/HCPCS: 96361; 96365; 96372; Q5111

== ENCOUNTER 2021-04-10 09:16 | Day surgery (SDC) | payer OTHER ==
[2021-04-10] MEDS ORDERED: SODIUM CHLORIDE 500 ML IV ONE (10:00)
[2021-04-10 15:27] VITALS: BP 128/76; PULSE 99; TEMP 98.3
== END 2021-04-10 14:50 | disposition home or self-care (01) ==
LOC: JONCNONCHE 09:16
PROVIDERS: ATTEND Internal Medicine Hematology & Oncology
PROC: 3E0437Z Introduction of Electrolytic and Water Balance Substance into Central Vein, Percutaneous Approach (ICD-10-PCS; principal; 2021-04-10)
DX: C23 Malignant neoplasm of gallbladder (principal); Z76.89 Persons encountering health services in other specified circumstances
CPT/HCPCS: 96360; 96361

== ENCOUNTER 2021-04-26 07:00 | Day surgery (SDC) | payer OTHER ==
[2021-04-26] MEDS ORDERED: SODIUM CHLORIDE 1,000 ML IV ONE (09:00)
[2021-04-26 09:12] LABS: BASO % 0.8 % (0-2.0); EOS % 1.7 % (0-4.5); HEMATOCRIT 33.4 % (32.4-45.2); HEMOGLOBIN 10.8 GM/dL (10.7-15.3); LYMPH % 33.4 % (8-40); MCH 25.2 pg (25.7-33.7); MCHC 32.4 g/dl (32.0-36.0); MEAN CELL VOLUME 77.9 fl (80-96); MEAN PLT VOLUME 7.1 fl (7.5-11.1); MONO % 8.6 % (3.8-10.2); NEUT % 55.5 % (42.8-82.8); PLATELET COUNT 396 10^3/uL (134-434); RBC 4.28 M/mm3 (3.60-5.2); RDW 22.8 % (11.6-15.6); WHITE BLOOD COUNT 6.1 K/mm3 (4.0-10.0)
[2021-04-26] MEDS ORDERED: FOSAPREPITANT DIMEGLUMINE 150 MG in SODIUM CHLORIDE 145 ML IVPB ONE (09:30)
[2021-04-26] MEDS ORDERED: DEXAMETHASONE SODIUM PHOSPHATE 12 MG in SODIUM CHLORIDE 50 ML IVPB ONE (09:30)
[2021-04-26] MEDS ORDERED: PALONOSETRON HCL 0.25 MG/5 ML VIAL IVPUSH ONE (09:30)
[2021-04-26 09:37] LABS: ALBUMIN 4.1 g/dl (3.4-5.0); BLOOD UREA NITROGEN 7.1 mg/dL (7-18); CALCIUM 10.2 mg/dL (8.5-10.1)
[2021-04-26 09:40] LABS: CREATININE 0.9 mg/dL (0.55-1.3)
[2021-04-26 09:42] LABS: TOT PROT 7.9 g/dl (6.4-8.2)
[2021-04-26] MEDS ORDERED: SODIUM CHLORIDE IV ONE (10:00)
[2021-04-26] MEDS ORDERED: CISPLATIN IV ONE (10:00)
[2021-04-26 10:03] LABS: BILIRUBIN,TOTAL 0.2 mg/dL (0.2-1)
[2021-04-26] MEDS ORDERED: OLANZapine 10 MG TABLET PO ONE (10:10)
[2021-04-26 10:33] LABS: ANISOCYTOSIS 2+; MACROCYTOSIS 1+; PLATELET ESTIMATE NORMAL
[2021-04-26] MEDS ORDERED: ETOPOSIDE 200 MG in SODIUM CHLORIDE 0.9% 500 ML IV ONE (12:00)
[2021-04-26] MEDS ORDERED: POTASSIUM CHLORIDE 10 MEQ, MAGNESIUM SULFATE 1 GM in SODIUM CHLORIDE 1,000 ML IVPB ONE (14:00)
[2021-04-26 17:11] VITALS: TEMP 98.3
[2021-04-26] MEDS ORDERED: PORTA CATH FLUSH 10 ML IVPUSH ONE (18:17)
[2021-04-26 18:18] VITALS: BP 108/69; PULSE 93
== END 2021-04-26 18:19 | disposition home or self-care (01) ==
LOC: JONCCHEMO 07:00
PROVIDERS: ATTEND Internal Medicine Hematology & Oncology
DX: Z51.11 Encounter for antineoplastic chemotherapy (principal); C23 Malignant neoplasm of gallbladder; C7A.1 Malignant poorly differentiated neuroendocrine tumors
CPT/HCPCS: 36415; 80053; 85025; 96361; 96367; 96375; 96413; 96415; 96417; J1453; J2469

== ENCOUNTER 2021-04-27 07:19 | Day surgery (SDC) | payer OTHER ==
[2021-04-27] MEDS ORDERED: SODIUM CHLORIDE 1,000 ML IV ONE (09:00)
[2021-04-27] MEDS ORDERED: DEXAMETHASONE SODIUM PHOSPHATE 10 MG in SODIUM CHLORIDE 50 ML IVPB ONE (09:30)
[2021-04-27] MEDS ORDERED: ETOPOSIDE 200 MG in SODIUM CHLORIDE 0.9% 500 ML IV ONE (10:00)
[2021-04-27] MEDS ORDERED: OLANZapine 10 MG TABLET PO ONE (15:41)
[2021-04-27] MEDS ORDERED: OLANZapine 5 MG TABLET PO ONE (15:41)
[2021-04-27 19:06] VITALS: TEMP 99.5
[2021-04-27 19:14] VITALS: BP 133/78; PULSE 63
[2021-04-27] MEDS ORDERED: PORTA CATH FLUSH 10 ML IVPUSH ONE (19:14)
== END 2021-04-27 19:00 | disposition home or self-care (01) ==
LOC: JONCCHEMO 07:19
PROVIDERS: ATTEND Internal Medicine Hematology & Oncology
DX: Z51.11 Encounter for antineoplastic chemotherapy (principal); C23 Malignant neoplasm of gallbladder; C7A.1 Malignant poorly differentiated neuroendocrine tumors
CPT/HCPCS: 96361; 96375; 96413; 96415

== ENCOUNTER 2021-04-28 07:11 | Day surgery (SDC) | payer OTHER ==
[2021-04-28] MEDS ORDERED: SODIUM CHLORIDE 1,000 ML IV ONE (09:00)
[2021-04-28] MEDS ORDERED: DEXAMETHASONE SODIUM PHOSPHATE 10 MG in SODIUM CHLORIDE 50 ML IVPB ONE (09:30)
[2021-04-28] MEDS ORDERED: ETOPOSIDE 200 MG in SODIUM CHLORIDE 0.9% 500 ML IV ONE (10:00)
[2021-04-28] MEDS ORDERED: SODIUM CHLORIDE 500 ML IV STA (14:02)
[2021-04-28] MEDS ORDERED: ONDANSETRON 4 MG/2 ML VIAL IVPB ONE (14:02)
[2021-04-28] MEDS ORDERED: ONDANSETRON INJECTION 8 MG in SODIUM CHLORIDE 50 ML IVPB ONE (15:00)
[2021-04-28 16:14] VITALS: TEMP 97.1
[2021-04-28] MEDS ORDERED: PORTA CATH FLUSH 10 ML IVPUSH ONE (16:18)
[2021-04-28 18:44] VITALS: BP 146/94; PULSE 85
== END 2021-04-28 18:35 | disposition home or self-care (01) ==
LOC: JONCCHEMO 07:11
PROVIDERS: ATTEND Internal Medicine Hematology & Oncology
DX: Z51.11 Encounter for antineoplastic chemotherapy (principal); C23 Malignant neoplasm of gallbladder; C7A.1 Malignant poorly differentiated neuroendocrine tumors
CPT/HCPCS: 96361; 96375; 96413; 96415

== ENCOUNTER 2021-05-01 07:22 | Day surgery (SDC) | payer OTHER ==
[2021-05-01] MEDS ORDERED: SODIUM CHLORIDE 500 ML IV ONE (09:15)
[2021-05-01] MEDS ORDERED: ACETAMINOPHEN 325 MG TABLET (FP) PO ONE (14:30)
[2021-05-01] MEDS ORDERED: ONDANSETRON INJECTION 8 MG in SODIUM CHLORIDE 50 ML IVPB ONE (14:30)
[2021-05-01 17:42] VITALS: TEMP 98.3
[2021-05-01 17:43] VITALS: BP 118/81; PULSE 110
== END 2021-05-01 16:30 | disposition home or self-care (01) ==
LOC: JONCCHEMO 07:22
PROVIDERS: ATTEND Internal Medicine Hematology & Oncology
PROC: 3E043GC Introduction of Other Therapeutic Substance into Central Vein, Percutaneous Approach (ICD-10-PCS; principal; 2021-05-01)
PROC: 3E0437Z Introduction of Electrolytic and Water Balance Substance into Central Vein, Percutaneous Approach (ICD-10-PCS; 2021-05-01)
DX: C23 Malignant neoplasm of gallbladder (principal); C7A.1 Malignant poorly differentiated neuroendocrine tumors; Z76.89 Persons encountering health services in other specified circumstances
CPT/HCPCS: 96361; 96374

== ENCOUNTER 2021-05-05 08:22 | Day surgery (SDC) | payer OTHER ==
[2021-05-05] MEDS ORDERED: SODIUM CHLORIDE 500 ML IV ONE (09:00)
[2021-05-05 14:21] LABS: BASO % 0.4 % (0-2.0); EOS % 0.1 % (0-4.5); HEMATOCRIT 29.5 % (32.4-45.2); HEMOGLOBIN 9.4 GM/dL (10.7-15.3); LYMPH % 14.3 % (8-40); MCH 25.1 pg (25.7-33.7); MEAN CELL VOLUME 78.5 fl (80-96); MEAN PLT VOLUME 8.5 fl (7.5-11.1); MONO % 10.9 % (3.8-10.2); NEUT % 74.3 % (42.8-82.8); PLATELET COUNT 106 10^3/uL (134-434); RBC 3.75 M/mm3 (3.60-5.2); RDW 22.4 % (11.6-15.6); WHITE BLOOD COUNT 7.4 K/mm3 (4.0-10.0)
[2021-05-05 14:29] LABS: INR 0.93 (0.83-1.09); PROTHROMBIN TIME (PATIENT) 11.3 SEC (9.7-13.0)
[2021-05-05 14:31] LABS: ACTIVATED PTT 25.8 SECONDS (25.2-36.5)
[2021-05-05 14:49] LABS: ALBUMIN 3.8 g/dl (3.4-5.0); BLOOD UREA NITROGEN 10.6 mg/dL (7-18); MAGNESIUM 1.8 mg/dL (1.8-2.4)
[2021-05-05 14:52] LABS: CREATININE 0.7 mg/dL (0.55-1.3)
[2021-05-05 14:54] LABS: BILIRUBIN,TOTAL 0.2 mg/dL (0.2-1); TOT PROT 7.4 g/dl (6.4-8.2)
[2021-05-05 14:55] LABS: CALCIUM 8.6 mg/dL (8.5-10.1)
[2021-05-05 15:53] LABS: ANISOCYTOSIS 1+; MACROCYTOSIS 0; OVALOCYTE 2+; PLATELET ESTIMATE DECREASED; TEAR DROP CELLS 1+
[2021-05-05 16:01] VITALS: TEMP 99.3
[2021-05-05 17:51] VITALS: BP 116/62; PULSE 82
== END 2021-05-05 16:40 | disposition home or self-care (01) ==
LOC: JONCNONCHE 08:22
PROVIDERS: ATTEND Internal Medicine Hematology & Oncology
PROC: 3E0437Z Introduction of Electrolytic and Water Balance Substance into Central Vein, Percutaneous Approach (ICD-10-PCS; principal; 2021-05-05)
DX: C23 Malignant neoplasm of gallbladder (principal); C7A.1 Malignant poorly differentiated neuroendocrine tumors; Z76.89 Persons encountering health services in other specified circumstances
CPT/HCPCS: 36415; 80053; 83735; 85025; 85610; 85730; 96360; 96361

== ENCOUNTER 2021-05-17 05:11 | Day surgery (SDC) | payer OTHER ==
[2021-05-17] MEDS ORDERED: SODIUM CHLORIDE 250 ML IV ONE (09:00)
[2021-05-17 09:31] LABS: BASO % 0.3 % (0-2.0); EOS % 0.7 % (0-4.5); HEMATOCRIT 30.2 % (32.4-45.2); LYMPH % 27.4 % (8-40); MCH 26.5 pg (25.7-33.7); MEAN CELL VOLUME 80.3 fl (80-96); MEAN PLT VOLUME 6.8 fl (7.5-11.1); MONO % 11.5 % (3.8-10.2); NEUT % 60.1 % (42.8-82.8); PLATELET COUNT 424 10^3/uL (134-434); RBC 3.76 M/mm3 (3.60-5.2); RDW 23.8 % (11.6-15.6); WHITE BLOOD COUNT 4.8 K/mm3 (4.0-10.0)
[2021-05-17 09:57] LABS: CALCIUM 9.3 mg/dL (8.5-10.1)
[2021-05-17 09:58] LABS: ALBUMIN 3.7 g/dl (3.4-5.0); BLOOD UREA NITROGEN 11.2 mg/dL (7-18)
[2021-05-17] MEDS ORDERED: PALONOSETRON HCL 0.25 MG/5 ML VIAL IVPUSH ONE (10:00)
[2021-05-17] MEDS ORDERED: DEXAMETHASONE SODIUM PHOSPHATE 12 MG in SODIUM CHLORIDE 50 ML IVPB ONE (10:00)
[2021-05-17] MEDS ORDERED: FOSAPREPITANT DIMEGLUMINE 150 MG in SODIUM CHLORIDE 150 ML IVPB ONE (10:00)
[2021-05-17 10:01] LABS: CREATININE 0.9 mg/dL (0.55-1.3)
[2021-05-17 10:02] LABS: BILIRUBIN,TOTAL 0.3 mg/dL (0.2-1)
[2021-05-17 10:03] LABS: TOT PROT 7.3 g/dl (6.4-8.2)
[2021-05-17] MEDS ORDERED: SODIUM CHLORIDE 1,000 ML IV STA (10:28)
[2021-05-17] MEDS ORDERED: OLANZapine 10 MG TABLET PO ONE (10:29)
[2021-05-17] MEDS ORDERED: SODIUM CHLORIDE IV ONE (10:30)
[2021-05-17] MEDS ORDERED: CISPLATIN IV ONE (10:30)
[2021-05-17 10:48] LABS: MAGNESIUM 2.1 mg/dL (1.8-2.4)
[2021-05-17 11:42] LABS: ANISOCYTOSIS 2+; MACROCYTOSIS 0; PLATELET ESTIMATE NORMAL
[2021-05-17] MEDS ORDERED: POTASSIUM CHLORIDE 10 MEQ, MAGNESIUM SULFATE 1 GM in SODIUM CHLORIDE 1,000 ML IVPB ONE (14:30)
[2021-05-17] MEDS: ETOPOSIDE IV ONE ×2 (15:56→17:22)
[2021-05-17] MEDS: SODIUM CHLORIDE 0.9% IV ONE ×2 (15:56→17:22)
[2021-05-17 18:33] VITALS: TEMP 99
[2021-05-17 19:29] VITALS: BP 112/72; PULSE 87
== END 2021-05-17 19:35 | disposition home or self-care (01) ==
LOC: JONCCHEMO 05:11
PROVIDERS: ATTEND Internal Medicine Hematology & Oncology
PROC: 3E04305 Introduction of Other Antineoplastic into Central Vein, Percutaneous Approach (ICD-10-PCS; principal; 2021-05-17)
PROC: 3E043GC Introduction of Other Therapeutic Substance into Central Vein, Percutaneous Approach (ICD-10-PCS; 2021-05-17)
PROC: 3E0437Z Introduction of Electrolytic and Water Balance Substance into Central Vein, Percutaneous Approach (ICD-10-PCS; 2021-05-17)
DX: Z51.11 Encounter for antineoplastic chemotherapy (principal); C23 Malignant neoplasm of gallbladder; I10 Essential (primary) hypertension
CPT/HCPCS: 36415; 80053; 82607; 82728; 83540; 83550; 83735; 85025; 96361; 96367; 96375; 96413; 96415; 96417; J1453; J2469; J9181

== ENCOUNTER → 2021-05-18 | Day surgery (SDC) | payer OTHER ==
[~2021-05-18] MED LIST changes: +DEXAMETHASONE SODIUM PHOSPHATE 10 MG in SODIUM CHLORIDE 50 ML IVPB ONE; +ETOPOSIDE IV ONE; +SODIUM CHLORIDE 0.9% IV ONE; -SODIUM CHLORIDE 1,000 ML IV ONE; +SODIUM CHLORIDE 250 ML IV ONE
[2021-05-18 18:06] VITALS: TEMP 98.2
[2021-05-18 18:09] VITALS: BP 128/74; PULSE 72
== END | disposition home or self-care (01) ==
LOC: JONCCHEMO 05:09
PROVIDERS: ATTEND Internal Medicine Hematology & Oncology
DX: C23 Malignant neoplasm of gallbladder (principal)
CPT/HCPCS: 96361; 96375; 96413; 96415; J9181

== ENCOUNTER 2021-05-19 05:10 | Day surgery (SDC) | payer OTHER ==
[2021-05-19] MEDS ORDERED: SODIUM CHLORIDE 250 ML IV ONE (10:00)
[2021-05-19] MEDS ORDERED: DEXAMETHASONE SODIUM PHOSPHATE 10 MG in SODIUM CHLORIDE 50 ML IVPB ONE (11:00)
[2021-05-19] MEDS ORDERED: ETOPOSIDE IV ONE (11:30)
[2021-05-19] MEDS ORDERED: SODIUM CHLORIDE 0.9% IV ONE (11:30)
[2021-05-19] MEDS ORDERED: ONDANSETRON 4 MG/2 ML VIAL IVPB ONE (11:57)
[2021-05-19 12:27] LABS: BASO % 0.2 % (0-2.0); HEMOGLOBIN 10.4 GM/dL (10.7-15.3); LYMPH % 17.1 % (8-40); MCH 26.3 pg (25.7-33.7); MCHC 32.5 g/dl (32.0-36.0); MEAN CELL VOLUME 80.7 fl (80-96); MEAN PLT VOLUME 7.2 fl (7.5-11.1); MONO % 7.8 % (3.8-10.2); NEUT % 74.9 % (42.8-82.8); PLATELET COUNT 452 10^3/uL (134-434); RBC 3.96 M/mm3 (3.60-5.2); RDW 24.6 % (11.6-15.6); WHITE BLOOD COUNT 7.9 K/mm3 (4.0-10.0)
[2021-05-19] MEDS ORDERED: OLANZapine 5 MG TABLET PO ONE (12:30)
[2021-05-19] MEDS ORDERED: ONDANSETRON INJECTION 8 MG in SODIUM CHLORIDE 50 ML IVPUSH ONE (12:30)
[2021-05-19 12:44] LABS: ALBUMIN 3.7 g/dl (3.4-5.0); BLOOD UREA NITROGEN 16.3 mg/dL (7-18)
[2021-05-19 12:47] LABS: CREATININE 1.1 mg/dL (0.55-1.3)
[2021-05-19 12:49] LABS: BILIRUBIN,TOTAL 0.2 mg/dL (0.2-1); TOT PROT 7.6 g/dl (6.4-8.2)
[2021-05-19 17:44] VITALS: TEMP 99.1
[2021-05-19 17:50] VITALS: BP 119/63; PULSE 80
== END 2021-05-19 16:20 | disposition home or self-care (01) ==
LOC: JONCNONCHE 05:10
PROVIDERS: ATTEND Internal Medicine Hematology & Oncology
PROC: 3E04305 Introduction of Other Antineoplastic into Central Vein, Percutaneous Approach (ICD-10-PCS; principal; 2021-05-19)
PROC: 3E043GC Introduction of Other Therapeutic Substance into Central Vein, Percutaneous Approach (ICD-10-PCS; 2021-05-19)
PROC: 3E0437Z Introduction of Electrolytic and Water Balance Substance into Central Vein, Percutaneous Approach (ICD-10-PCS; 2021-05-19)
DX: Z51.11 Encounter for antineoplastic chemotherapy (principal); C23 Malignant neoplasm of gallbladder; I10 Essential (primary) hypertension
CPT/HCPCS: 36415; 80053; 85025; 96361; 96367; 96375; 96413; 96415; J9181

== ENCOUNTER 2021-05-21 12:04 | Day surgery (SDC) | payer OTHER ==
[2021-05-21 12:41] VITALS: BP 100/54; PULSE 99; TEMP 98.9
[2021-05-21] MEDS ORDERED: PEGFILGRASTIM-CBQV (UDENYCA) 6 MG/0.6 ML SYRINGE SQ ONE (13:00)
== END 2021-05-21 12:40 | disposition home or self-care (01) ==
LOC: JONCCHEMO 12:04 → J7W 12:04 → JONCCHEMO 12:40
PROVIDERS: ATTEND Internal Medicine Hematology & Oncology
PROC: 3E013GC Introduction of Other Therapeutic Substance into Subcutaneous Tissue, Percutaneous Approach (ICD-10-PCS; principal; 2021-05-21)
DX: Z76.89 Persons encountering health services in other specified circumstances (principal); C23 Malignant neoplasm of gallbladder; I10 Essential (primary) hypertension
CPT/HCPCS: 96372; Q5111

== ENCOUNTER 2021-05-25 06:42 | Day surgery (SDC) | payer OTHER ==
[~2021-05-25 06:42] MED LIST changes: -DEXAMETHASONE SODIUM PHOSPHATE 10 MG in SODIUM CHLORIDE 50 ML IVPB ONE; -ETOPOSIDE IV ONE; -SODIUM CHLORIDE 0.9% IV ONE; -SODIUM CHLORIDE 250 ML IV ONE; +SODIUM CHLORIDE 500 ML IV ONE
[2021-05-25] MEDS ORDERED: ONDANSETRON 4 MG/2 ML VIAL IVPB ONE (13:13)
[2021-05-25] MEDS ORDERED: SODIUM CHLORIDE 500 ML IV ONE (15:15)
[2021-05-25 17:52] VITALS: TEMP 98.2
[2021-05-25 17:53] VITALS: BP 127/74; PULSE 84
== END 2021-05-25 14:25 | disposition home or self-care (01) ==
LOC: JONCCHEMO 06:42
PROVIDERS: ATTEND Internal Medicine Hematology & Oncology
PROC: 3E043GC Introduction of Other Therapeutic Substance into Central Vein, Percutaneous Approach (ICD-10-PCS; principal; 2021-05-25)
PROC: 3E043GC Introduction of Other Therapeutic Substance into Central Vein, Percutaneous Approach (ICD-10-PCS; 2021-05-25)
DX: C23 Malignant neoplasm of gallbladder (principal)
CPT/HCPCS: 96361; 96365

== ENCOUNTER 2021-06-07 08:31 | Day surgery (SDC) | payer OTHER ==
[2021-06-07] MEDS ORDERED: SODIUM CHLORIDE 250 ML IV ONE (09:00)
[2021-06-07] MEDS ORDERED: FOSAPREPITANT DIMEGLUMINE 150 MG in SODIUM CHLORIDE 145 ML IVPB ONE (09:30)
[2021-06-07] MEDS ORDERED: PALONOSETRON HCL 0.25 MG/5 ML VIAL IVPUSH ONE (09:30)
[2021-06-07] MEDS ORDERED: DEXAMETHASONE SODIUM PHOSPHATE 12 MG in SODIUM CHLORIDE 50 ML IVPB ONE (09:30)
[2021-06-07] MEDS ORDERED: CISPLATIN IV ONE (10:00)
[2021-06-07] MEDS ORDERED: SODIUM CHLORIDE IV ONE (10:00)
[2021-06-07] MEDS ORDERED: POTASSIUM CHLORIDE 10 MEQ, MAGNESIUM SULFATE 1 GM in SODIUM CHLORIDE 1,000 ML IVPB ONE (12:00)
[2021-06-07] MEDS ORDERED: ETOPOSIDE IV ONE (14:00)
[2021-06-07] MEDS ORDERED: SODIUM CHLORIDE 0.9% IV ONE (14:00)
[2021-06-07 14:33] LABS: BASO % 0.3 % (0-2.0); EOS % 0.1 % (0-4.5); HEMATOCRIT 30.4 % (32.4-45.2); LYMPH % 17.7 % (8-40); MCH 27.6 pg (25.7-33.7); MCHC 32.9 g/dl (32.0-36.0); MEAN CELL VOLUME 83.8 fl (80-96); MEAN PLT VOLUME 7.5 fl (7.5-11.1); MONO % 11.5 % (3.8-10.2); NEUT % 70.4 % (42.8-82.8); PLATELET COUNT 370 10^3/uL (134-434); RBC 3.63 M/mm3 (3.60-5.2); RDW 21.7 % (11.6-15.6); WHITE BLOOD COUNT 4.6 K/mm3 (4.0-10.0)
[2021-06-07 15:01] LABS: CALCIUM 9.2 mg/dL (8.5-10.1)
[2021-06-07 15:02] LABS: ALBUMIN 3.9 g/dl (3.4-5.0); BLOOD UREA NITROGEN 7.6 mg/dL (7-18); MAGNESIUM 1.6 mg/dL (1.8-2.4)
[2021-06-07 15:05] LABS: CREATININE 0.9 mg/dL (0.55-1.3)
[2021-06-07 15:06] LABS: BILIRUBIN,TOTAL 0.2 mg/dL (0.2-1)
[2021-06-09 17:07] LABS: HEP B CORE AB, TOT Negative (Negative)
[2021-06-10 01:06] LABS: FIBROSIS SCORE. 0.01 (0.00-0.21); HCV ALPHA 2 MACRO CHART 168 mg/dL (110-276); NECRO.INFLAM ACT.SCORE 0.06 (0.00-0.17); NECROINFLAM. ACTIVITY GRADE A0-No activity (.)
== END 2021-06-07 16:00 | disposition home or self-care (01) ==
LOC: JONCCHEMO 08:31
PROVIDERS: ATTEND Internal Medicine Hematology & Oncology
DX: Z53.8 Procedure and treatment not carried out for other reasons (principal)
CPT/HCPCS: 36415; 80053; 82172; 82977; 83010; 83735; 83883; 84460; 85025; 86704; 86706; 86707; 86708; 86709; 87340

== ENCOUNTER 2021-06-08 09:42 | Day surgery (SDC) | payer OTHER ==
[~2021-06-08 09:42] MED LIST changes: +SODIUM CHLORIDE 250 ML IV ONE; -SODIUM CHLORIDE 500 ML IV ONE
[2021-06-08] MEDS ORDERED: FOSAPREPITANT DIMEGLUMINE 150 MG in SODIUM CHLORIDE 145 ML IVPB ONE (10:00)
[2021-06-08] MEDS ORDERED: DEXAMETHASONE SODIUM PHOSPHATE 12 MG in SODIUM CHLORIDE 50 ML IVPB ONE (10:00)
[2021-06-08] MEDS ORDERED: SODIUM CHLORIDE 1,000 ML IV ONE (10:00)
[2021-06-08] MEDS ORDERED: PALONOSETRON HCL 0.25 MG/5 ML VIAL IVPUSH ONE (10:00)
[2021-06-08] MEDS ORDERED: SODIUM CHLORIDE IV ONE ×2 (10:30→12:00)
[2021-06-08] MEDS ORDERED: CISPLATIN IV ONE ×2 (10:30→12:00)
[2021-06-08] MEDS ORDERED: MAGNESIUM 1GM/D5W - 1 GM/100 ML IVPB IVPB ONE (11:41)
[2021-06-08] MEDS ORDERED: POTASSIUM CHLORIDE 10 MEQ, MAGNESIUM SULFATE 1 GM in SODIUM CHLORIDE 1,000 ML IVPB ONE (12:30)
[2021-06-08] MEDS ORDERED: ETOPOSIDE IV ONE (14:30)
[2021-06-08] MEDS ORDERED: SODIUM CHLORIDE 0.9% IV ONE (14:30)
[2021-06-08 17:00] VITALS: TEMP 98.8
[2021-06-08] MEDS ORDERED: PORTA CATH FLUSH 10 ML IVPUSH ONE (17:06)
[2021-06-08 18:25] VITALS: BP 134/87; PULSE 84
== END 2021-06-08 18:35 | disposition home or self-care (01) ==
LOC: JONCCHEMO 09:42
PROVIDERS: ATTEND Internal Medicine Hematology & Oncology
DX: Z51.11 Encounter for antineoplastic chemotherapy (principal); C23 Malignant neoplasm of gallbladder
CPT/HCPCS: 96361; 96367; 96375; 96413; 96415; 96417; J1453; J2469; J9181

== ENCOUNTER 2021-06-09 07:10 | Day surgery (SDC) | payer OTHER ==
[2021-06-09] MEDS ORDERED: SODIUM CHLORIDE 250 ML IV ONE (09:00)
[2021-06-09] MEDS ORDERED: DEXAMETHASONE SODIUM PHOSPHATE 10 MG in SODIUM CHLORIDE 50 ML IVPB ONE (09:30)
[2021-06-09] MEDS ORDERED: SODIUM CHLORIDE 0.9% IV ONE (10:00)
[2021-06-09] MEDS ORDERED: ETOPOSIDE IV ONE (10:00)
[2021-06-09] MEDS ORDERED: SODIUM CHLORIDE 1,000 ML IV STA (12:53)
[2021-06-09] MEDS ORDERED: ONDANSETRON 4 MG/2 ML VIAL IVPB ONE (12:54)
[2021-06-09] MEDS: OLANZapine 10 MG TABLET PO ONE ×2 (13:20→14:27)
[2021-06-09 17:48] VITALS: TEMP 99.2
[2021-06-09 17:50] VITALS: BP 132/86; PULSE 86
== END 2021-06-09 17:53 | disposition home or self-care (01) ==
LOC: JONCCHEMO 07:10
PROVIDERS: ATTEND Internal Medicine Hematology & Oncology
DX: Z51.11 Encounter for antineoplastic chemotherapy (principal); C23 Malignant neoplasm of gallbladder
CPT/HCPCS: 96361; 96367; 96375; 96413; 96415; 96417; J9181

== ENCOUNTER 2021-06-12 06:50 | Day surgery (SDC) | payer OTHER ==
[2021-06-12] MEDS ORDERED: SODIUM CHLORIDE 1,000 ML IV ONE (09:00)
[2021-06-12] MEDS ORDERED: DEXAMETHASONE SODIUM PHOSPHATE 10 MG in SODIUM CHLORIDE 50 ML IVPB ONE (10:30)
[2021-06-12] MEDS ORDERED: ETOPOSIDE IV ONE (11:00)
[2021-06-12] MEDS ORDERED: SODIUM CHLORIDE 0.9% IV ONE (11:00)
[2021-06-12] MEDS ORDERED: ONDANSETRON INJECTION 8 MG in SODIUM CHLORIDE 50 ML IVPB ONE (15:30)
[2021-06-12 18:03] VITALS: TEMP 98.6
[2021-06-12 18:40] VITALS: BP 124/82; PULSE 83
== END 2021-06-12 18:41 | disposition home or self-care (01) ==
LOC: JONCCHEMO 06:50
PROVIDERS: ATTEND Internal Medicine Hematology & Oncology
DX: Z51.11 Encounter for antineoplastic chemotherapy (principal); C23 Malignant neoplasm of gallbladder
CPT/HCPCS: 96361; 96375; 96413; 96415; J9181

== ENCOUNTER 2021-06-13 06:43 | Day surgery (SDC) | payer OTHER ==
[2021-06-13] MEDS ORDERED: PEGFILGRASTIM-CBQV (UDENYCA) 6 MG/0.6 ML SYRINGE SQ ONE (10:00)
[2021-06-13] MEDS ORDERED: ONDANSETRON INJECTION 8 MG in SODIUM CHLORIDE 50 ML IVPB ONE (13:30)
[2021-06-13] MEDS ORDERED: SODIUM CHLORIDE 1,000 ML IV ONE (13:30)
[2021-06-13 17:03] VITALS: TEMP 98.9
[2021-06-13 17:04] VITALS: BP 134/83; PULSE 97
== END 2021-06-13 15:15 | disposition home or self-care (01) ==
LOC: JONCCHEMO 06:43
PROVIDERS: ATTEND Internal Medicine Hematology & Oncology
PROC: 3E043GC Introduction of Other Therapeutic Substance into Central Vein, Percutaneous Approach (ICD-10-PCS; principal; 2021-06-13)
PROC: 3E043GC Introduction of Other Therapeutic Substance into Central Vein, Percutaneous Approach (ICD-10-PCS; 2021-06-13)
PROC: 3E013GC Introduction of Other Therapeutic Substance into Subcutaneous Tissue, Percutaneous Approach (ICD-10-PCS; 2021-06-13)
DX: C23 Malignant neoplasm of gallbladder (principal); Z76.89 Persons encountering health services in other specified circumstances
CPT/HCPCS: 96361; 96365; 96372; J2405; Q5111

== ENCOUNTER 2021-06-28 06:43 | Day surgery (SDC) | payer OTHER ==
[2021-06-28] MEDS ORDERED: SODIUM CHLORIDE 1,000 ML IV ONE (09:00)
[2021-06-28] MEDS ORDERED: PALONOSETRON HCL 0.25 MG/5 ML VIAL IVPUSH ONE (09:30)
[2021-06-28] MEDS ORDERED: FOSAPREPITANT DIMEGLUMINE 150 MG in SODIUM CHLORIDE 145 ML IVPB ONE (09:30)
[2021-06-28] MEDS ORDERED: ONDANSETRON IVPB ONE (09:30)
[2021-06-28] MEDS ORDERED: DEXAMETHASONE SODIUM PHOSPHATE IVPB ONE (09:30)
[2021-06-28] MEDS ORDERED: [UNRECOGNIZED DRUG - OTHER] IVPB ONE (09:30)
[2021-06-28] MEDS ORDERED: SODIUM CHLORIDE IV ONE (10:00)
[2021-06-28] MEDS ORDERED: CISPLATIN IV ONE (10:00)
[2021-06-28 10:44] LABS: BASO % 0.2 % (0-2.0); EOS % 0.4 % (0-4.5); HEMATOCRIT 25.4 % (32.4-45.2); HEMOGLOBIN 8.4 GM/dL (10.7-15.3); LYMPH % 21.1 % (8-40); MCH 28.4 pg (25.7-33.7); MCHC 33.1 g/dl (32.0-36.0); MEAN CELL VOLUME 85.7 fl (80-96); MEAN PLT VOLUME 7.6 fl (7.5-11.1); MONO % 12.9 % (3.8-10.2); NEUT % 65.4 % (42.8-82.8); PLATELET COUNT 185 10^3/uL (134-434); RBC 2.96 M/mm3 (3.60-5.2); RDW 19.7 % (11.6-15.6); WHITE BLOOD COUNT 3.4 K/mm3 (4.0-10.0)
[2021-06-28 11:06] LABS: BLOOD UREA NITROGEN 11.7 mg/dL (7-18); CALCIUM 8.9 mg/dL (8.5-10.1)
[2021-06-28 11:07] LABS: ALBUMIN 3.4 g/dl (3.4-5.0); MAGNESIUM 1.8 mg/dL (1.8-2.4)
[2021-06-28] MEDS ORDERED: OLANZapine 10 MG TABLET PO ONE (11:07)
[2021-06-28] MEDS ORDERED: DEXAMETHASONE SOD PHOSPHATE 20 MG/5 ML VIAL IVPB ONE (11:08)
[2021-06-28 11:09] LABS: CREATININE 0.8 mg/dL (0.55-1.3)
[2021-06-28 11:11] LABS: BILIRUBIN,TOTAL 0.3 mg/dL (0.2-1); TOT PROT 6.9 g/dl (6.4-8.2)
[2021-06-28] MEDS ORDERED: DEXAMETHASONE SODIUM PHOSPHATE 12 MG in SODIUM CHLORIDE 50 ML IVPB ONE (11:15)
[2021-06-28] MEDS ORDERED: POTASSIUM CHLORIDE 10 MEQ, MAGNESIUM SULFATE 1 GM in SODIUM CHLORIDE 1,000 ML IVPB ONE (12:00)
[2021-06-28] MEDS ORDERED: ETOPOSIDE IV ONE (14:00)
[2021-06-28] MEDS ORDERED: SODIUM CHLORIDE 0.9% IV ONE (14:00)
[2021-06-28] MEDS ORDERED: PANTOPRAZOLE SODIUM 40 MG VIAL IVPUSH ONE (14:30)
[2021-06-28 18:10] VITALS: BP 116/68; PULSE 73; TEMP 98.8
== END 2021-06-28 19:07 | disposition home or self-care (01) ==
LOC: JONCNONCHE 06:43
PROVIDERS: ATTEND Internal Medicine Hematology & Oncology
DX: Z51.11 Encounter for antineoplastic chemotherapy (principal); C23 Malignant neoplasm of gallbladder
CPT/HCPCS: 36415; 80053; 83735; 85025; 96361; 96367; 96375; 96413; 96415; 96417; J1453; J2469; J9181

== ENCOUNTER 2021-06-29 06:29 | Day surgery (SDC) | payer OTHER ==
[2021-06-29] MEDS ORDERED: SODIUM CHLORIDE 1,000 ML IV ONE (09:00)
[2021-06-29] MEDS ORDERED: DEXAMETHASONE SODIUM PHOSPHATE 10 MG, ONDANSETRON INJECTION 8 MG in SODIUM CHLORIDE 100 ML IVPB ONE (09:30)
[2021-06-29] MEDS ORDERED: SODIUM CHLORIDE 0.9% IV ONE (10:00)
[2021-06-29] MEDS ORDERED: ETOPOSIDE IV ONE (10:00)
[2021-06-29] MEDS ORDERED: SODIUM CHLORIDE 250 ML IV ONE (11:00)
[2021-06-29] MEDS ORDERED: FERRIC CARBOXYMALTOSE 750 MG in SODIUM CHLORIDE 250 ML IVPB ONE (11:30)
[2021-06-29] MEDS ORDERED: DEXAMETHASONE SOD PHOSPHATE 20 MG/5 ML VIAL IVPB ONE (12:09)
[2021-06-29] MEDS ORDERED: DEXAMETHASONE SODIUM PHOSPHATE 12 MG in SODIUM CHLORIDE 50 ML IVPB ONE (12:15)
[2021-06-29] MEDS ORDERED: OLANZapine 10 MG TABLET PO ONE (14:00)
[2021-06-29] MEDS ORDERED: PANTOPRAZOLE SODIUM 40 MG VIAL IVPB ONE (14:21)
[2021-06-29] MEDS ORDERED: PROCHLORPERAZINE INJECTION 10 MG/2 ML VIAL IVPB ONE ×2 (14:23→15:00)
[2021-06-29 18:09] VITALS: TEMP 98.2
[2021-06-29 18:11] VITALS: BP 128/78; PULSE 79
== END 2021-06-29 18:15 | disposition home or self-care (01) ==
LOC: JONCCHEMO 06:29
PROVIDERS: ATTEND Internal Medicine Hematology & Oncology
DX: Z51.11 Encounter for antineoplastic chemotherapy (principal); C23 Malignant neoplasm of gallbladder; D50.9 Iron deficiency anemia, unspecified
CPT/HCPCS: 96361; 96366; 96367; 96375; 96413; 96415; J1439; J9181

== ENCOUNTER 2021-06-30 06:37 | Day surgery (SDC) | payer OTHER ==
[2021-06-30] MEDS ORDERED: SODIUM CHLORIDE 1,000 ML IV ONE (09:00)
[2021-06-30] MEDS ORDERED: DEXAMETHASONE SODIUM PHOSPHATE 10 MG, ONDANSETRON INJECTION 8 MG in SODIUM CHLORIDE 100 ML IVPB ONE (09:30)
[2021-06-30] MEDS ORDERED: SODIUM CHLORIDE 0.9% IV ONE (10:00)
[2021-06-30] MEDS ORDERED: ETOPOSIDE IV ONE (10:00)
[2021-06-30] MEDS ORDERED: PANTOPRAZOLE SODIUM 40 MG VIAL IVPB ONE (12:21)
[2021-06-30] MEDS ORDERED: OLANZapine 10 MG TABLET PO ONE (12:22)
[2021-06-30 16:43] VITALS: TEMP 99
[2021-06-30] MEDS ORDERED: PORTA CATH FLUSH 10 ML IVPUSH ONE ×2 (16:43→17:32)
[2021-06-30 17:33] VITALS: BP 122/46; PULSE 70
== END 2021-06-30 17:45 | disposition home or self-care (01) ==
LOC: JONCCHEMO 06:37
PROVIDERS: ATTEND Internal Medicine Hematology & Oncology
DX: Z51.11 Encounter for antineoplastic chemotherapy (principal); C23 Malignant neoplasm of gallbladder; C78.00 Secondary malignant neoplasm of unspecified lung
CPT/HCPCS: 96361; 96367; 96413; 96415; J2405; J9181

== ENCOUNTER 2021-07-03 06:59 | Day surgery (SDC) | payer OTHER ==
[2021-07-03] MEDS ORDERED: PEGFILGRASTIM-CBQV (UDENYCA) 6 MG/0.6 ML SYRINGE SQ ONE (10:00)
[2021-07-03] MEDS ORDERED: ONDANSETRON INJECTION 8 MG in SODIUM CHLORIDE 50 ML IVPB ONE (10:00)
[2021-07-03] MEDS ORDERED: SODIUM CHLORIDE 500 ML IV ONE (15:45)
[2021-07-03 15:54] LABS: BASO % 0.2 % (0-2.0); EOS % 0.2 % (0-4.5); HEMATOCRIT 29.5 % (32.4-45.2); HEMOGLOBIN 9.8 GM/dL (10.7-15.3); LYMPH % 16.5 % (8-40); MCH 27.9 pg (25.7-33.7); MCHC 33.2 g/dl (32.0-36.0); MEAN CELL VOLUME 83.9 fl (80-96); MEAN PLT VOLUME 7.7 fl (7.5-11.1); MONO % 0.8 % (3.8-10.2); NEUT % 82.3 % (42.8-82.8); PLATELET COUNT 286 10^3/uL (134-434); RBC 3.51 M/mm3 (3.60-5.2); RDW 17.7 % (11.6-15.6); WHITE BLOOD COUNT 5.5 K/mm3 (4.0-10.0)
[2021-07-03 16:04] VITALS: TEMP 98.3
[2021-07-03] MEDS ORDERED: PORTA CATH FLUSH 10 ML IVPUSH ONE (16:05)
[2021-07-03 16:19] LABS: CALCIUM 9.4 mg/dL (8.5-10.1)
[2021-07-03 16:20] LABS: BLOOD UREA NITROGEN 26.8 mg/dL (7-18)
[2021-07-03 16:23] LABS: CREATININE 1.6 mg/dL (0.55-1.3)
[2021-07-03 16:24] LABS: BILIRUBIN,TOTAL 0.6 mg/dL (0.2-1)
[2021-07-03 16:25] LABS: TOT PROT 8.6 g/dl (6.4-8.2)
[2021-07-03 16:53] LABS: MAGNESIUM 1.3 mg/dL (1.8-2.4)
[2021-07-03 16:55] LABS: ALBUMIN 4.1 g/dl (3.4-5.0)
[2021-07-03] MEDS ORDERED: MAGNESIUM SULF 50% (8.12 MEQ/2 ML-1 GM VIAL) IVPB ONE (16:58)
[2021-07-03] MEDS ORDERED: POTASSIUM CHLORIDE TABS 20 MEQ TABLET.ER (FP) PO ONE (16:59)
[2021-07-03] MEDS ORDERED: MAGNESIUM SULF 50% (8.12 MEQ/2 ML-1 GM VIAL) ONE (17:00)
[2021-07-03] MEDS ORDERED: SODIUM CHLORIDE 500 ML IV STA (17:02)
[2021-07-03 18:41] VITALS: BP 112/64; PULSE 72
== END 2021-07-03 18:45 | disposition home or self-care (01) ==
LOC: JONCCHEMO 06:59
PROVIDERS: ATTEND Internal Medicine Hematology & Oncology
PROC: 3E043GC Introduction of Other Therapeutic Substance into Central Vein, Percutaneous Approach (ICD-10-PCS; principal; 2021-07-03)
PROC: 3E0437Z Introduction of Electrolytic and Water Balance Substance into Central Vein, Percutaneous Approach (ICD-10-PCS; 2021-07-03)
PROC: 3E013GC Introduction of Other Therapeutic Substance into Subcutaneous Tissue, Percutaneous Approach (ICD-10-PCS; 2021-07-03)
DX: Z76.89 Persons encountering health services in other specified circumstances (principal); C23 Malignant neoplasm of gallbladder; C78.00 Secondary malignant neoplasm of unspecified lung
CPT/HCPCS: 36415; 80053; 83735; 85025; 86850; 86900; 86901; 96361; 96365; 96372; 96375; Q5111

== ENCOUNTER 2021-07-04 13:09 | Day surgery (SDC) | payer OTHER ==
[2021-07-04 14:21] LABS: HEMOGLOBIN 9.6 GM/dL (10.7-15.3); MCH 27.8 pg (25.7-33.7); MEAN CELL VOLUME 84.3 fl (80-96); PLATELET COUNT 196 10^3/uL (134-434); RBC 3.44 M/mm3 (3.60-5.2); RDW 17.7 % (11.6-15.6); WHITE BLOOD COUNT 22.3 K/mm3 (4.0-10.0)
[2021-07-04 14:40] LABS: CALCIUM 9.5 mg/dL (8.5-10.1)
[2021-07-04 14:41] LABS: ALBUMIN 3.9 g/dl (3.4-5.0); BLOOD UREA NITROGEN 31.4 mg/dL (7-18)
[2021-07-04 14:44] LABS: CREATININE 1.7 mg/dL (0.55-1.3)
[2021-07-04 14:46] LABS: BILIRUBIN,TOTAL 0.5 mg/dL (0.2-1)
[2021-07-04 14:47] LABS: TOT PROT 8.4 g/dl (6.4-8.2)
[2021-07-04 14:52] LABS: ANISOCYTOSIS 0; MACROCYTOSIS 0; PLATELET ESTIMATE NORMAL
[2021-07-04] MEDS ORDERED: SODIUM CHLORIDE 1,000 ML IV ONE ×2 (15:00→15:30)
[2021-07-04] MEDS ORDERED: KCL 10 MEQ IVPB 10 MEQ/100 ML INFUS.BAG IVPB ONE ×2 (15:30→17:00)
[2021-07-04] MEDS ORDERED: ONDANSETRON INJECTION 8 MG in SODIUM CHLORIDE 50 ML IVPB ONE (16:00)
[2021-07-04] MEDS ORDERED: PANTOPRAZOLE SODIUM 40 MG in SODIUM CHLORIDE 100 ML IVPB ONE (16:00)
[2021-07-04] MEDS ORDERED: PANTOPRAZOLE SODIUM 40 MG VIAL ONE (16:24)
[2021-07-04] MEDS ORDERED: SODIUM CHLORIDE 100 ML IVPB ONE (16:25)
[2021-07-04 16:59] LABS: MAGNESIUM 1.6 mg/dL (1.8-2.4)
[2021-07-04] MEDS ORDERED: MAGNESIUM 1GM/D5W - 1 GM/100 ML IVPB IVPB ONE ×2 (17:00→18:00)
[2021-07-04 17:16] VITALS: TEMP 98.4
[2021-07-04] MEDS ORDERED: PROCHLORPERAZINE INJECTION 10 MG/2 ML VIAL IVPB ONE (17:23)
[2021-07-04 18:09] VITALS: BP 115/66; PULSE 87
[2021-07-04] MEDS ORDERED: PORTA CATH FLUSH 10 ML IVPUSH ONE (18:09)
== END 2021-07-04 19:10 | disposition home or self-care (01) ==
LOC: JONCNONCHE 13:09
PROVIDERS: ATTEND Internal Medicine Hematology & Oncology
PROC: 3E043GC Introduction of Other Therapeutic Substance into Central Vein, Percutaneous Approach (ICD-10-PCS; principal; 2021-07-04)
DX: Z76.89 Persons encountering health services in other specified circumstances (principal); C23 Malignant neoplasm of gallbladder; C78.00 Secondary malignant neoplasm of unspecified lung
CPT/HCPCS: 36415; 80053; 83735; 85025; 96365; 96367; 96368

== ENCOUNTER 2021-07-05 07:47 | Day surgery (SDC) | payer OTHER ==
[2021-07-05 11:51] LABS: HEMATOCRIT 28.1 % (32.4-45.2); HEMOGLOBIN 9.4 GM/dL (10.7-15.3); MCH 28.2 pg (25.7-33.7); MCHC 33.6 g/dl (32.0-36.0); MEAN CELL VOLUME 83.9 fl (80-96); MEAN PLT VOLUME 6.7 fl (7.5-11.1); PLATELET COUNT 131 10^3/uL (134-434); RBC 3.35 M/mm3 (3.60-5.2); WHITE BLOOD COUNT 13.4 K/mm3 (4.0-10.0)
[2021-07-05] MEDS ORDERED: SODIUM CHLORIDE 1,000 ML IV ONE (12:00)
[2021-07-05] MEDS ORDERED: ONDANSETRON INJECTION 8 MG in SODIUM CHLORIDE 50 ML IVPB ONE (12:00)
[2021-07-05 12:13] LABS: CALCIUM 9.5 mg/dL (8.5-10.1)
[2021-07-05 12:14] LABS: BLOOD UREA NITROGEN 25.2 mg/dL (7-18); MAGNESIUM 1.7 mg/dL (1.8-2.4)
[2021-07-05 12:16] LABS: URIC ACID 5.8 mg/dL (2.6-7.2)
[2021-07-05 12:17] LABS: CREATININE 1.9 mg/dL (0.55-1.3)
[2021-07-05 12:19] LABS: TOT PROT 8.2 g/dl (6.4-8.2)
[2021-07-05 12:21] LABS: BILIRUBIN,TOTAL 0.4 mg/dL (0.2-1)
[2021-07-05 12:36] LABS: ANISOCYTOSIS 0; HELMET CELLS 0; HOWELL-JOLLY BODIES 0; MACROCYTOSIS 0; OVALOCYTE 0; PLATELET ESTIMATE DECREASED; ROULEAU 0; SICKELED CELLS 0; TARGET CELLS 0; TEAR DROP CELLS 0; TOXIC GRANULATION 0
[2021-07-05 14:39] LABS: ALBUMIN 3.8 g/dl (3.4-5.0)
[2021-07-05] MEDS ORDERED: MAGNESIUM SULF 50% (8.12 MEQ/2 ML-1 GM VIAL) IVPB ONE (15:04)
[2021-07-05] MEDS ORDERED: SODIUM CHLORIDE 1,000 ML IV STA (15:04)
[2021-07-05] MEDS ORDERED: POTASSIUM CHLORIDE ORAL LIQUID 20 MEQ/15 ML PO ONE (15:05)
[2021-07-05 15:08] VITALS: TEMP 99
[2021-07-05] MEDS ORDERED: KCL 10 MEQ IVPB 10 MEQ/100 ML INFUS.BAG IVPB SCH (15:15)
[2021-07-05 17:43] VITALS: BP 141/77; PULSE 94
== END 2021-07-05 16:30 | disposition home or self-care (01) ==
LOC: JONCNONCHE 07:47
PROVIDERS: ATTEND Internal Medicine Hematology & Oncology
PROC: 3E043GC Introduction of Other Therapeutic Substance into Central Vein, Percutaneous Approach (ICD-10-PCS; principal; 2021-07-05)
PROC: 3E0437Z Introduction of Electrolytic and Water Balance Substance into Central Vein, Percutaneous Approach (ICD-10-PCS; 2021-07-05)
DX: Z76.89 Persons encountering health services in other specified circumstances (principal); C23 Malignant neoplasm of gallbladder; C78.00 Secondary malignant neoplasm of unspecified lung
CPT/HCPCS: 36415; 80053; 83615; 83735; 84550; 85025; 96361; 96365

== ENCOUNTER 2021-07-06 07:32 | Day surgery (SDC) | payer OTHER ==
[2021-07-06 10:13] LABS: HEMATOCRIT 23.9 % (32.4-45.2); MCH 28.1 pg (25.7-33.7); MCHC 33.5 g/dl (32.0-36.0); MEAN CELL VOLUME 83.9 fl (80-96); MEAN PLT VOLUME 7.3 fl (7.5-11.1); PLATELET COUNT 82 10^3/uL (134-434); RBC 2.85 M/mm3 (3.60-5.2); RDW 17.6 % (11.6-15.6); WHITE BLOOD COUNT 4.3 K/mm3 (4.0-10.0)
[2021-07-06] MEDS ORDERED: SODIUM CHLORIDE 1,000 ML IV ONE (10:30)
[2021-07-06] MEDS ORDERED: ONDANSETRON INJECTION 8 MG in SODIUM CHLORIDE 50 ML IVPB ONE (10:30)
[2021-07-06] MEDS ORDERED: FERRIC CARBOXYMALTOSE 750 MG in SODIUM CHLORIDE 250 ML IVPB ONE (10:30)
[2021-07-06 10:43] LABS: ALBUMIN 3.4 g/dl (3.4-5.0)
[2021-07-06 10:46] LABS: CREATININE 1.6 mg/dL (0.55-1.3)
[2021-07-06 10:54] LABS: BILIRUBIN,TOTAL 0.6 mg/dL (0.2-1); BLOOD UREA NITROGEN 23.1 mg/dL (7-18); CALCIUM 8.7 mg/dL (8.5-10.1); TOT PROT 7.3 g/dl (6.4-8.2)
[2021-07-06 11:19] LABS: ANISOCYTOSIS 1+; MACROCYTOSIS 0; PLATELET ESTIMATE DECREASED
[2021-07-06] MEDS: KCL 10 MEQ IVPB 10 MEQ/100 ML INFUS.BAG IVPB SCH ×2 (11:51→12:58)
[2021-07-06 12:15] LABS: CALCIUM 8.4 mg/dL (8.5-10.1)
[2021-07-06 12:16] LABS: ALBUMIN 3.4 g/dl (3.4-5.0); BLOOD UREA NITROGEN 19.9 mg/dL (7-18); MAGNESIUM 1.5 mg/dL (1.8-2.4)
[2021-07-06 12:18] LABS: CREATININE 1.3 mg/dL (0.55-1.3)
[2021-07-06 12:20] LABS: BILIRUBIN,TOTAL 0.2 mg/dL (0.2-1); TOT PROT 7.2 g/dl (6.4-8.2)
[2021-07-06] MEDS ORDERED: MAGNESIUM 2GM/50ML STERILE WATER IVPB IVPB ONE (12:40)
[2021-07-06 13:30] LABS: CREATININE, URINE RANDOM < 13.0 mg/dL (30-150)
[2021-07-06] MEDS ORDERED: POTASSIUM CHLORIDE ORAL LIQUID 20 MEQ/15 ML PO ONE (13:31)
[2021-07-06 15:48] LABS: PH,URINE 7.5 (5.0-8.0); URINE APPEARANCE CLEAR; URINE BILIRUBIN NEGATIVE (NEGATIVE); URINE COLOR YELLOW; URINE GLUCOSE (UA) TRACE (NEGATIVE); URINE KETONE NEGATIVE (NEGATIVE); URINE LEUK ESTERASE NEGATIVE (NEGATIVE); URINE NITRITE NEGATIVE (NEGATIVE); URINE PROTEIN TRACE (NEGATIVE); URINE UROBILINOGEN 0.2 mg/dL (0.2-1.0)
[2021-07-06 15:52] LABS: CREATININE, URINE RANDOM < 13.0 mg/dL (30-150)
[2021-07-06 18:05] VITALS: BP 112/70; PULSE 89; TEMP 99
== END 2021-07-06 15:15 | disposition home or self-care (01) ==
LOC: JONCNONCHE 07:32
PROVIDERS: ATTEND Internal Medicine Hematology & Oncology
PROC: 3E043GC Introduction of Other Therapeutic Substance into Central Vein, Percutaneous Approach (ICD-10-PCS; principal; 2021-07-06)
PROC: 3E0437Z Introduction of Electrolytic and Water Balance Substance into Central Vein, Percutaneous Approach (ICD-10-PCS; 2021-07-06)
DX: Z76.89 Persons encountering health services in other specified circumstances (principal); C23 Malignant neoplasm of gallbladder; C78.00 Secondary malignant neoplasm of unspecified lung
CPT/HCPCS: 36415; 80053; 81003; 82570; 82977; 83010; 83615; 83735; 84156; 84300; 85025; 87517; 96365; 96366; 96367; 96375

== ENCOUNTER 2021-07-07 07:04 | Day surgery (SDC) | payer OTHER ==
[2021-07-07 10:18] LABS: HEMATOCRIT 26.4 % (32.4-45.2); MCH 28.5 pg (25.7-33.7); MEAN CELL VOLUME 83.9 fl (80-96); MEAN PLT VOLUME 8.4 fl (7.5-11.1); PLATELET COUNT 83 10^3/uL (134-434); RBC 3.15 M/mm3 (3.60-5.2); WHITE BLOOD COUNT 3.2 K/mm3 (4.0-10.0)
[2021-07-07 10:39] LABS: CALCIUM 9.4 mg/dL (8.5-10.1)
[2021-07-07 10:40] LABS: ALBUMIN 3.9 g/dl (3.4-5.0); BLOOD UREA NITROGEN 16.9 mg/dL (7-18); MAGNESIUM 1.4 mg/dL (1.8-2.4)
[2021-07-07 10:43] LABS: CREATININE 1.6 mg/dL (0.55-1.3)
[2021-07-07 10:45] LABS: TOT PROT 8.2 g/dl (6.4-8.2)
[2021-07-07] MEDS ORDERED: SODIUM CHLORIDE 1,000 ML IV STA (10:57)
[2021-07-07] MEDS ORDERED: MAGNESIUM SULF 50% (8.12 MEQ/2 ML-1 GM VIAL) IVPB ONE (11:15)
[2021-07-07 11:24] LABS: BILIRUBIN,TOTAL 0.8 mg/dL (0.2-1)
[2021-07-07] MEDS ORDERED: ONDANSETRON 4 MG/2 ML VIAL IVPB ONE (11:54)
[2021-07-07] MEDS: KCL 10 MEQ IVPB 10 MEQ/100 ML INFUS.BAG IVPB SCH ×2 (12:01→13:02)
[2021-07-07 12:51] LABS: ANISOCYTOSIS 1+; MACROCYTOSIS 0; OVALOCYTE 1+; PLATELET ESTIMATE DECREASED; TEAR DROP CELLS 1+
[2021-07-07 17:51] VITALS: BP 135/83; PULSE 91; TEMP 99
[2021-07-07] MEDS ORDERED: PORTA CATH FLUSH 10 ML IVPUSH ONE (17:52)
== END 2021-07-07 15:20 | disposition home or self-care (01) ==
LOC: JONCNONCHE 07:04
PROVIDERS: ATTEND Internal Medicine Hematology & Oncology
PROC: 3E033GC Introduction of Other Therapeutic Substance into Peripheral Vein, Percutaneous Approach (ICD-10-PCS; principal; 2021-07-07)
PROC: 3E0337Z Introduction of Electrolytic and Water Balance Substance into Peripheral Vein, Percutaneous Approach (ICD-10-PCS; 2021-07-07)
DX: Z76.89 Persons encountering health services in other specified circumstances (principal); C23 Malignant neoplasm of gallbladder; C78.00 Secondary malignant neoplasm of unspecified lung
CPT/HCPCS: 36415; 80053; 83735; 85025; 86850; 86900; 86901; 96365; 96367

== ENCOUNTER 2021-07-11 08:30 | Day surgery (SDC) | payer OTHER ==
[2021-07-11] MEDS ORDERED: SODIUM CHLORIDE 1,000 ML IV ONE ×2 (10:45→14:00)
[2021-07-11 12:29] LABS: HEMATOCRIT 24.2 % (32.4-45.2); HEMOGLOBIN 8.1 GM/dL (10.7-15.3); MCH 28.1 pg (25.7-33.7); MCHC 33.5 g/dl (32.0-36.0); MEAN CELL VOLUME 83.8 fl (80-96); MEAN PLT VOLUME 8.6 fl (7.5-11.1); PLATELET COUNT 60 10^3/uL (134-434); RBC 2.88 M/mm3 (3.60-5.2); RDW 17.8 % (11.6-15.6); WHITE BLOOD COUNT 19.1 K/mm3 (4.0-10.0)
[2021-07-11 12:53] LABS: ALBUMIN 3.8 g/dl (3.4-5.0); CALCIUM 9.1 mg/dL (8.5-10.1)
[2021-07-11 12:54] LABS: BLOOD UREA NITROGEN 13.7 mg/dL (7-18); MAGNESIUM 1.5 mg/dL (1.8-2.4)
[2021-07-11 12:57] LABS: CREATININE 2.2 mg/dL (0.55-1.3)
[2021-07-11 12:58] LABS: BILIRUBIN,TOTAL 0.1 mg/dL (0.2-1); TOT PROT 7.8 g/dl (6.4-8.2)
[2021-07-11 13:10] LABS: ANISOCYTOSIS 2+; MACROCYTOSIS 0; PLATELET ESTIMATE DECREASED
[2021-07-11] MEDS ORDERED: MAGNESIUM 1GM/D5W - 1 GM/100 ML IVPB IVPB ONE (14:00)
[2021-07-11 18:33] VITALS: TEMP 98.9
[2021-07-11 18:34] VITALS: BP 127/75; PULSE 117
== END 2021-07-11 18:34 | disposition home or self-care (01) ==
LOC: JONCNONCHE 08:30
PROVIDERS: ATTEND Internal Medicine Hematology & Oncology
PROC: 3E043GC Introduction of Other Therapeutic Substance into Central Vein, Percutaneous Approach (ICD-10-PCS; principal; 2021-07-11)
PROC: 3E0437Z Introduction of Electrolytic and Water Balance Substance into Central Vein, Percutaneous Approach (ICD-10-PCS; 2021-07-11)
DX: Z76.89 Persons encountering health services in other specified circumstances (principal); C23 Malignant neoplasm of gallbladder
CPT/HCPCS: 36415; 80053; 83735; 85025; 96361; 96365

== ENCOUNTER 2021-07-12 08:08 | Day surgery (SDC) | payer OTHER ==
[2021-07-12 12:36] LABS: HEMOGLOBIN 7.6 GM/dL (10.7-15.3); MCH 28.1 pg (25.7-33.7); MEAN CELL VOLUME 85.3 fl (80-96); MEAN PLT VOLUME 8.9 fl (7.5-11.1); PLATELET COUNT 57 10^3/uL (134-434); RDW 17.7 % (11.6-15.6); WHITE BLOOD COUNT 11.6 K/mm3 (4.0-10.0)
[2021-07-12 13:00] LABS: CALCIUM 8.6 mg/dL (8.5-10.1)
[2021-07-12 13:01] LABS: ALBUMIN 3.4 g/dl (3.4-5.0); BLOOD UREA NITROGEN 11.9 mg/dL (7-18); MAGNESIUM 1.4 mg/dL (1.8-2.4)
[2021-07-12 13:04] LABS: CREATININE 1.5 mg/dL (0.55-1.3)
[2021-07-12 13:05] LABS: BILIRUBIN,TOTAL 0.1 mg/dL (0.2-1)
[2021-07-12] MEDS ORDERED: MAGNESIUM SULF 50% (8.12 MEQ/2 ML-1 GM VIAL) IVPB ONE (13:22)
[2021-07-12] MEDS ORDERED: POTASSIUM CHLORIDE ORAL LIQUID 20 MEQ/15 ML PO ONE (13:22)
[2021-07-12 13:28] LABS: ANISOCYTOSIS 0; MACROCYTOSIS 0; OVALOCYTE 1+; PLATELET ESTIMATE DECREASED
[2021-07-12] MEDS ORDERED: MAGNESIUM SULFATE IN WATER 2 GM/50 ML IVPB IVPB ONE (13:30)
[2021-07-12] MEDS ORDERED: SODIUM CHLORIDE 1,000 ML IV ONE (13:45)
[2021-07-12 16:46] VITALS: TEMP 98.9
[2021-07-12] MEDS ORDERED: PORTA CATH FLUSH 10 ML IVPUSH ONE (16:46)
[2021-07-12 16:52] VITALS: BP 115/67; PULSE 79
== END 2021-07-12 16:57 | disposition home or self-care (01) ==
LOC: JONCNONCHE 08:08
PROVIDERS: ATTEND Internal Medicine Hematology & Oncology
PROC: 3E043GC Introduction of Other Therapeutic Substance into Central Vein, Percutaneous Approach (ICD-10-PCS; principal; 2021-07-12)
PROC: 3E0437Z Introduction of Electrolytic and Water Balance Substance into Central Vein, Percutaneous Approach (ICD-10-PCS; 2021-07-12)
DX: Z76.89 Persons encountering health services in other specified circumstances (principal); C23 Malignant neoplasm of gallbladder
CPT/HCPCS: 36415; 36430; 80053; 83735; 85025; 86850; 86900; 86901; 86922; 96365; 96366; P9058

== ENCOUNTER 2021-07-13 08:03 | Day surgery (SDC) | payer OTHER ==
[2021-07-13 15:21] VITALS: BP 130/80; PULSE 99; TEMP 100
== END 2021-07-13 15:10 | disposition home or self-care (01) ==
LOC: JONCBLOOD 08:03
PROVIDERS: ATTEND Internal Medicine Hematology & Oncology
PROC: 30233N1 Transfusion of Nonautologous Red Blood Cells into Peripheral Vein, Percutaneous Approach (ICD-10-PCS; principal; 2021-07-13)
DX: C23 Malignant neoplasm of gallbladder (principal); D50.9 Iron deficiency anemia, unspecified; E87.5 Hyperkalemia; E83.42 Hypomagnesemia; N17.9 Acute kidney failure, unspecified
CPT/HCPCS: 36430; 86850; 86900; 86901

== ENCOUNTER 2021-07-17 09:20 | Day surgery (SDC) | payer OTHER ==
[2021-07-17] MEDS ORDERED: MAGNESIUM SULF 50% (8.12 MEQ/2 ML-1 GM VIAL) IVPB ONE ×2 (12:14→12:30)
[2021-07-17] MEDS ORDERED: MAGNESIUM SULFATE IN WATER 2 GM/50 ML IVPB IVPB ONE (12:30)
[2021-07-17 16:32] VITALS: BP 125/78; PULSE 92; TEMP 98.5
[2021-07-17] MEDS ORDERED: PORTA CATH FLUSH 10 ML IVPUSH ONE (16:33)
== END 2021-07-17 13:54 | disposition home or self-care (01) ==
LOC: JONCNONCHE 09:20
PROVIDERS: ATTEND Internal Medicine Hematology & Oncology
DX: C23 Malignant neoplasm of gallbladder (principal); Z76.89 Persons encountering health services in other specified circumstances
CPT/HCPCS: 96365

== ENCOUNTER 2021-07-21 08:53 | Day surgery (SDC) | payer OTHER ==
[2021-07-21] MEDS ORDERED: SODIUM CHLORIDE 500 ML IV STA (13:51)
[2021-07-21] MEDS ORDERED: oxyCODONE HCL 5 MG TABLET PO ONE ×2 (13:51→15:15)
[2021-07-21 15:26] LABS: BASO % 0.2 % (0-2.0); EOS % 0.2 % (0-4.5); HEMATOCRIT 26.2 % (32.4-45.2); HEMOGLOBIN 8.8 GM/dL (10.7-15.3); LYMPH % 11.6 % (8-40); MCH 28.4 pg (25.7-33.7); MCHC 33.4 g/dl (32.0-36.0); MEAN CELL VOLUME 84.9 fl (80-96); MEAN PLT VOLUME 7.7 fl (7.5-11.1); MONO % 10.7 % (3.8-10.2); NEUT % 77.3 % (42.8-82.8); PLATELET COUNT 251 10^3/uL (134-434); RBC 3.09 M/mm3 (3.60-5.2); RDW 17.4 % (11.6-15.6); WHITE BLOOD COUNT 5.2 K/mm3 (4.0-10.0)
[2021-07-21 15:41] VITALS: TEMP 99.4
[2021-07-21 15:46] LABS: ALBUMIN 3.7 g/dl (3.4-5.0); BLOOD UREA NITROGEN 8.8 mg/dL (7-18); CALCIUM 9.4 mg/dL (8.5-10.1); MAGNESIUM 1.5 mg/dL (1.8-2.4)
[2021-07-21 15:49] LABS: CREATININE 1.3 mg/dL (0.55-1.3)
[2021-07-21 15:57] LABS: BILIRUBIN,TOTAL 0.4 mg/dL (0.2-1)
[2021-07-21] MEDS ORDERED: MAGNESIUM SULF 50% (8.12 MEQ/2 ML-1 GM VIAL) IVPB ONE (16:03)
[2021-07-21] MEDS ORDERED: ONDANSETRON 4 MG/2 ML VIAL IVPB ONE ×2 (16:55→17:00)
[2021-07-21 17:43] VITALS: BP 130/84; PULSE 100
== END 2021-07-21 17:43 | disposition home or self-care (01) ==
LOC: JONCNONCHE 08:53
PROVIDERS: ATTEND Internal Medicine Hematology & Oncology
PROC: 3E043GC Introduction of Other Therapeutic Substance into Central Vein, Percutaneous Approach (ICD-10-PCS; principal; 2021-07-21)
PROC: 3E043GC Introduction of Other Therapeutic Substance into Central Vein, Percutaneous Approach (ICD-10-PCS; 2021-07-21)
DX: C23 Malignant neoplasm of gallbladder (principal); Z76.89 Persons encountering health services in other specified circumstances
CPT/HCPCS: 36415; 72146-TC; 72148-TC; 80053; 82150; 83615; 83690; 83735; 85025; 96361; 96365; 96375

== ENCOUNTER 2021-07-26 07:16 | Day surgery (SDC) | payer OTHER ==
[2021-07-26] MEDS ORDERED: NIVOLUMAB 240 MG in SODIUM CHLORIDE 100 ML IVPB ONE (10:00)
[2021-07-26] MEDS ORDERED: SODIUM CHLORIDE IVPB ONE ×2 (10:30→15:45)
[2021-07-26] MEDS ORDERED: IPILIMUMAB IVPB ONE (10:30)
[2021-07-26 14:39] LABS: BASO % 0.4 % (0-2.0); EOS % 0.1 % (0-4.5); HEMATOCRIT 24.4 % (32.4-45.2); HEMOGLOBIN 8.3 GM/dL (10.7-15.3); LYMPH % 10.7 % (8-40); MCH 29.2 pg (25.7-33.7); MEAN CELL VOLUME 85.9 fl (80-96); MEAN PLT VOLUME 7.8 fl (7.5-11.1); NEUT % 79.8 % (42.8-82.8); PLATELET COUNT 245 10^3/uL (134-434); RBC 2.84 M/mm3 (3.60-5.2); RDW 17.2 % (11.6-15.6); WHITE BLOOD COUNT 5.3 K/mm3 (4.0-10.0)
[2021-07-26 15:14] LABS: CHLORIDE 95 mmol/L (98-107); SODIUM 134 mmol/L (136-145)
[2021-07-26 15:19] LABS: CALCIUM 9.4 mg/dL (8.5-10.1)
[2021-07-26 15:20] LABS: ALBUMIN 3.4 g/dl (3.4-5.0); ANION GAP 11 MMOL/L (8-16); BLOOD UREA NITROGEN 10.8 mg/dL (7-18); CO2 29 mmol/L (21-32); GLUCOSE,RANDOM 81 mg/dL (74-106)
[2021-07-26 15:21] LABS: AMYLASE 61 U/L (25-115); LIPASE 108 U/L (73-393)
[2021-07-26 15:23] LABS: BILIRUBIN,DIRECT 0.3 mg/dL (0.0-0.2); CREATININE 1.5 mg/dL (0.55-1.3); SGOT/AST 221 U/L (15-37); SGPT/ALT 190 U/L (13-61)
[2021-07-26 15:24] LABS: BILIRUBIN,TOTAL 0.7 mg/dL (0.2-1)
[2021-07-26 15:43] LABS: ALK PHOS 249 U/L (45-117); N-TERMINAL BNP 147.3 pg/ml (5-125)
[2021-07-26] MEDS ORDERED: NIVOLUMAB IVPB ONE (15:45)
[2021-07-26] MEDS ORDERED: SODIUM CHLORIDE 1,000 ML IV STA (16:42)
[2021-07-26] MEDS ORDERED: ACETAMINOPHEN 325 MG TABLET (FP) PO ONE (16:43)
[2021-07-26 17:35] LABS: EPI CELLS 6 /uL (0-25.1); HYALINE CASTS 10 /uL (0-3.1); PH,URINE 5.5 (5.0-8.0); URINE APPEARANCE CLOUDY; URINE BACTERIA >9,000 /uL (0-1359); URINE BILIRUBIN NEGATIVE (NEGATIVE); URINE COLOR DK YELLOW; URINE GLUCOSE (UA) NEGATIVE (NEGATIVE); URINE KETONE 2+ (NEGATIVE); URINE LEUK ESTERASE 1+ (NEGATIVE); URINE NITRITE NEGATIVE (NEGATIVE); URINE PROTEIN NEGATIVE (NEGATIVE); URINE RBC 10 /uL (0-23.9); URINE WBC 123 /uL (0-25.8)
[2021-07-26 19:14] VITALS: BP 127/77; PULSE 87; TEMP 98.9
[2021-07-26] MEDS ORDERED: PORTA CATH FLUSH 10 ML IVPUSH ONE (19:14)
== END 2021-07-26 19:17 | disposition home or self-care (01) ==
LOC: JONCCHEMO 07:16
PROVIDERS: ATTEND Internal Medicine Hematology & Oncology
DX: Z51.11 Encounter for antineoplastic chemotherapy (principal); C23 Malignant neoplasm of gallbladder; C79.9 Secondary malignant neoplasm of unspecified site
CPT/HCPCS: 36415; 80048; 80076; 81003; 82150; 82533; 82550; 83690; 83880; 84439; 84443; 84484; 85025; 96361; 96367; 96413; 96417; J9228; J9299

== ENCOUNTER 2021-08-03 17:18 | Inpatient (IN) | payer OTHER ==
[2021-08-03] MEDS ORDERED: HYDROmorphone HCL CARPU-JECT 2 MG/1 ML DISP.SYRIN IVPUSH ONE ×2 (18:41→19:58)
[2021-08-03] MEDS ORDERED: SODIUM CHLORIDE 1,000 ML IV STA (18:41)
[2021-08-03] MEDS ORDERED: HYDROmorphone HCl 2 MG/ML VIAL ONE ×2 (18:49→20:03)
[2021-08-03] MEDS ORDERED: ONDANSETRON 4 MG/2 ML VIAL IVPUSH ONE (19:58)
[2021-08-03 20:01] LABS: BASO % 0.3 % (0-2.0); HEMOGLOBIN 8.8 GM/dL (10.7-15.3); LYMPH % 4.9 % (8-40); MCHC 32.6 g/dl (32.0-36.0); MEAN CELL VOLUME 85.9 fl (80-96); MEAN PLT VOLUME 7.8 fl (7.5-11.1); MONO % 4.3 % (3.8-10.2); NEUT % 90.5 % (42.8-82.8); PLATELET COUNT 223 10^3/uL (134-434); RBC 3.14 M/mm3 (3.60-5.2); RDW 17.4 % (11.6-15.6); WHITE BLOOD COUNT 5.5 K/mm3 (4.0-10.0)
[2021-08-03] MEDS ORDERED: ONDANSETRON 4 MG/2 ML VIAL ONE (20:03)
[2021-08-03 20:19] LABS: CALCIUM 9.4 mg/dL (8.5-10.1)
[2021-08-03 20:20] LABS: ALBUMIN 3.4 g/dl (3.4-5.0)
[2021-08-03 20:23] LABS: CREATININE 1.4 mg/dL (0.55-1.3)
[2021-08-03 20:24] LABS: BILIRUBIN,TOTAL 0.6 mg/dL (0.2-1); TOT PROT 9.1 g/dl (6.4-8.2)
[2021-08-03 20:28] LABS: EPI CELLS 7 /uL (0-25.1); HYALINE CASTS 7 /uL (0-3.1); PH,URINE 5.5 (5.0-8.0); URINE APPEARANCE CLOUDY; URINE BACTERIA 3838 /uL (0-1359); URINE BILIRUBIN NEGATIVE (NEGATIVE); URINE COLOR DK YELLOW; URINE GLUCOSE (UA) NEGATIVE (NEGATIVE); URINE KETONE 3+ (NEGATIVE); URINE LEUK ESTERASE 1+ (NEGATIVE); URINE NITRITE POSITIVE (NEGATIVE); URINE PROTEIN 1+ (NEGATIVE); URINE WBC 144 /uL (0-25.8)
[2021-08-03] MEDS ORDERED: CEFTRIAXONE 1,000 MG in DEXTROSE 5%-WATER - 50 ML IVPB ONE (20:46)
[2021-08-03] MEDS ORDERED: CEFTRIAXONE 1 GM/50 ML BAG ONE (21:36)
[2021-08-03 23:20] LABS: URINE RBC 36.3 /uL (0-23.9)
[2021-08-04] MEDS ORDERED: DOCUSATE SODIUM 100 MG CAPSULE (FP) PO PRN (04:56)
[2021-08-04] MEDS ORDERED: morphine SULFATE 4 MG/ML VIAL ONE (05:04)
[2021-08-04] MEDS ORDERED: MEROPENEM 1 GM VIAL (RESTRICTED TO ID) IVPB ONE (05:04)
[2021-08-04] MEDS ORDERED: VANCOMYCIN 1 GM in D5W (PRE-DOCKED) 1,000 MG/250 ML IVPB ONE (05:15)
[2021-08-04] MEDS: LACTATED RINGERS SOLUTION 1,000 ML/1,000 ML INFUS.BAG IV SCH ×2 (05:15→17:50)
[2021-08-04] MEDS ORDERED: MEROPENEM 1 GM in DEXTROSE 5%-WATER 100 ML IVPB ONE (05:15)
[2021-08-04] MEDS: morphine SULFATE 4 MG/ML VIAL IVPUSH PRN ×2 (05:16→11:05)
[2021-08-04] MEDS ORDERED: ONDANSETRON 4 MG/2 ML VIAL ONE (05:18)
[2021-08-04] MEDS: ONDANSETRON 4 MG/2 ML VIAL IVPUSH PRN (05:21)
[2021-08-04 05:45] LABS: HEMATOCRIT 23.7 % (32.4-45.2); HEMOGLOBIN 7.9 GM/dL (10.7-15.3); MCH 28.7 pg (25.7-33.7); MCHC 33.2 g/dl (32.0-36.0); MEAN CELL VOLUME 86.5 fl (80-96); MEAN PLT VOLUME 7.8 fl (7.5-11.1); PLATELET COUNT 214 10^3/uL (134-434); RBC 2.73 M/mm3 (3.60-5.2); RDW 16.9 % (11.6-15.6); WHITE BLOOD COUNT 5.1 K/mm3 (4.0-10.0)
[2021-08-04 06:08] LABS: MAGNESIUM 1.5 mg/dL (1.8-2.4)
[2021-08-04 06:09] LABS: BLOOD UREA NITROGEN 9.2 mg/dL (7-18)
[2021-08-04 06:11] LABS: CREATININE 1.1 mg/dL (0.55-1.3)
[2021-08-04 06:12] LABS: PHOSPHOROUS 3.4 mg/dL (2.5-4.9)
[2021-08-04 06:13] LABS: TOT PROT 7.8 g/dl (6.4-8.2)
[2021-08-04 06:14] LABS: BILIRUBIN,TOTAL 0.4 mg/dL (0.2-1)
[2021-08-04 09:50] VITALS: BMI 30.2
[2021-08-04] MEDS ORDERED: ENOXAPARIN NA (PORCINE) 40 MG/0.4 ML DISP.SYRIN SQ SCH (10:00)
[2021-08-04] MEDS ORDERED: HYDROmorphone HCL 2 MG TABLET PO PRN (14:55)
[2021-08-04] MEDS ORDERED: HYDROmorphone HCl 2 MG/ML VIAL IVPB PRN ×2 (15:31→15:47)
[2021-08-04] MEDS ORDERED: morphine SULFATE 4 MG/ML VIAL IVPUSH PRN (15:56)
[2021-08-04] MEDS ORDERED: DEXTROSE 5%-WATER - 50 ML IVPB ONE (17:42)
[2021-08-04] MEDS ORDERED: PIPERACILLIN/TAZOBACTAM 3.375 GM VIAL IVPB ONE (17:42)
[2021-08-04] MEDS: PIPERACILLIN/TAZOB 3.375 GM 3.375 GM in DEXTROSE 5%-WATER - 50 ML IVPB SCH (17:46)
[2021-08-04] MEDS ORDERED: PIPERACILLIN/TAZOB 3.375 GM 3.375 GM in DEXTROSE 5%-WATER - 50 ML IVPB SCH (18:00)
[2021-08-04] MEDS: HYDROmorphone HCl 2 MG/ML VIAL IVPB PRN (20:06)
[2021-08-04] MEDS ORDERED: APIXABAN 5 MG TABLET PO SCH (22:00)
[2021-08-04] MEDS ORDERED: SENNOSIDES 8.6MG TABLET (FP) PO SCH (22:00)
[2021-08-04] MEDS: LIDOCAINE 5% TOPICAL PATCH TP SCH (23:10)
[2021-08-04] MEDS: CYCLOBENZAPRINE HCL 10 MG TABLET (FP) PO SCH (23:11)
[2021-08-04] MEDS: GABAPENTIN 300 MG CAPSULE PO SCH (23:11)
[2021-08-04] MEDS: POLYETHYLENE GLYCOL (HEALTHYLAX) 3350 17 GM PACKET PO SCH (23:12)
[2021-08-05] MEDS ORDERED: PIPERACILLIN/TAZOBACTAM 3.375 GM VIAL IVPB ONE ×2 (01:45→10:43)
[2021-08-05] MEDS ORDERED: DEXTROSE 5%-WATER - 50 ML IVPB ONE ×3 (01:45→17:29)
[2021-08-05] MEDS: HYDROmorphone HCl 2 MG/ML VIAL IVPB PRN ×4 (01:52→18:15)
[2021-08-05] MEDS: PIPERACILLIN/TAZOB 3.375 GM 3.375 GM in DEXTROSE 5%-WATER - 50 ML IVPB SCH (01:59)
[2021-08-05] MEDS: ONDANSETRON 4 MG/2 ML VIAL IVPUSH PRN (05:24)
[2021-08-05] MEDS: LACTATED RINGERS SOLUTION 1,000 ML/1,000 ML INFUS.BAG IV SCH (07:59)
[2021-08-05] MEDS ORDERED: oxyCODONE HCL 5 MG TABLET PO PRN (08:11)
[2021-08-05 08:28] LABS: BASO % 0.6 % (0-2.0); EOS % 0.7 % (0-4.5); LYMPH % 11.9 % (8-40); MCH 28.7 pg (25.7-33.7); MCHC 33.5 g/dl (32.0-36.0); MEAN CELL VOLUME 85.6 fl (80-96); MEAN PLT VOLUME 7.9 fl (7.5-11.1); MONO % 13.4 % (3.8-10.2); NEUT % 73.4 % (42.8-82.8); PLATELET COUNT 184 10^3/uL (134-434); RBC 2.46 M/mm3 (3.60-5.2); RDW 16.6 % (11.6-15.6); WHITE BLOOD COUNT 3.7 K/mm3 (4.0-10.0)
[2021-08-05 08:51] LABS: CALCIUM 8.4 mg/dL (8.5-10.1)
[2021-08-05 08:52] LABS: MAGNESIUM 1.1 mg/dL (1.8-2.4)
[2021-08-05 08:53] LABS: PHOSPHOROUS 2.7 mg/dL (2.5-4.9)
[2021-08-05 08:55] LABS: CREATININE 1.1 mg/dL (0.55-1.3)
[2021-08-05] MEDS ORDERED: PIPERACILLIN/TAZOB 3.375 GM 3.375 GM in DEXTROSE 5%-WATER - 50 ML IVPB SCH (10:00)
[2021-08-05] MEDS ORDERED: MAGNESIUM OXIDE 400 MG TABLET (FP) PO ONE (10:35)
[2021-08-05] MEDS ORDERED: PT OWN MED DRAWER 7, Y5N ONE (10:43)
[2021-08-05] MEDS: DOCUSATE SODIUM 100 MG CAPSULE (FP) PO SCH (10:51)
[2021-08-05] MEDS: PANTOPRAZOLE 40 MG TABLET PO SCH (10:52)
[2021-08-05] MEDS: GABAPENTIN 300 MG CAPSULE PO SCH ×2 (10:52→21:39)
[2021-08-05] MEDS: APIXABAN 5 MG TABLET PO SCH ×2 (10:52→21:40)
[2021-08-05] MEDS: POLYETHYLENE GLYCOL (HEALTHYLAX) 3350 17 GM PACKET PO SCH ×2 (10:52→21:39)
[2021-08-05] MEDS: CYCLOBENZAPRINE HCL 10 MG TABLET (FP) PO SCH (10:52)
[2021-08-05] MEDS: LIDOCAINE PATCH REMOVAL MC SCH (15:04)
[2021-08-05] MEDS: HYDROmorphone HCL 2 MG TABLET PO PRN ×2 (15:05→22:13)
[2021-08-05] MEDS ORDERED: cefTRIAXone SODIUM 1 GM VIAL ONE (17:29)
[2021-08-05] MEDS: CEFTRIAXONE 1 GM in DEXTROSE 5%-WATER - 50 ML IVPB SCH (17:33)
[2021-08-05] MEDS ORDERED: MAGNESIUM SULF 50% (8.12 MEQ/2 ML-1 GM VIAL) IVPB ONE (17:34)
[2021-08-05] MEDS ORDERED: MAGNESIUM 2GM/50ML STERILE WATER IVPB IVPB ONE (17:40)
[2021-08-05] MEDS: Methylnaltrexone Bromide 12 MG/0.6 ML KIT SQ SCH (18:26)
[2021-08-06] MEDS: LIDOCAINE 5% TOPICAL PATCH TP SCH ×2 (00:16→22:14)
[2021-08-06] MEDS: HYDROmorphone HCl 2 MG/ML VIAL IVPB PRN ×3 (02:27→20:25)
[2021-08-06 08:40] LABS: BLOOD UREA NITROGEN 5.1 mg/dL (7-18); CHLORIDE 98 mmol/L (98-107); CO2 31 mmol/L (21-32); CREATININE 0.9 mg/dL (0.55-1.3); GLUCOSE,RANDOM 85 mg/dL (74-106); SODIUM 136 mmol/L (136-145)
[2021-08-06 08:41] LABS: ALBUMIN 2.3 g/dl (3.4-5.0); ALK PHOS 79 U/L (45-117); BILIRUBIN,TOTAL 0.4 mg/dL (0.2-1); CALCIUM 8.2 mg/dL (8.5-10.1); PHOSPHOROUS 2.7 mg/dL (2.5-4.9); SGOT/AST 69 U/L (15-37); SGPT/ALT 27 U/L (13-61); TOT PROT 6.5 g/dl (6.4-8.2)
[2021-08-06 09:13] LABS: HEMATOCRIT 20.9 % (32.4-45.2); MCH 28.6 pg (25.7-33.7); MCHC 33.6 g/dl (32.0-36.0); MEAN CELL VOLUME 85.1 fl (80-96); MEAN PLT VOLUME 7.9 fl (7.5-11.1); PLATELET COUNT 169 10^3/uL (134-434); RBC 2.46 M/mm3 (3.60-5.2); RDW 16.8 % (11.6-15.6); WHITE BLOOD COUNT 3.9 K/mm3 (4.0-10.0)
[2021-08-06 09:14] LABS: BASO % 0.4 % (0-2.0); EOS % 0.5 % (0-4.5); LYMPH % 15.7 % (8-40); MONO % 14.7 % (3.8-10.2); NEUT % 68.7 % (42.8-82.8)
[2021-08-06] MEDS ORDERED: CEFTRIAXONE 1 GM in DEXTROSE 5%-WATER - 50 ML IVPB SCH (10:00)
[2021-08-06] MEDS ORDERED: cefTRIAXone SODIUM 1 GM VIAL ONE (10:33)
[2021-08-06] MEDS ORDERED: DEXTROSE 5%-WATER - 50 ML IVPB ONE (10:33)
[2021-08-06] MEDS: HYDROmorphone HCL 2 MG TABLET PO PRN ×3 (10:36→23:25)
[2021-08-06] MEDS: DOCUSATE SODIUM 100 MG CAPSULE (FP) PO SCH (10:37)
[2021-08-06] MEDS: CEFTRIAXONE 1 GM in DEXTROSE 5%-WATER - 50 ML IVPB SCH (10:37)
[2021-08-06] MEDS: APIXABAN 5 MG TABLET PO SCH ×2 (10:37→22:14)
[2021-08-06] MEDS: GABAPENTIN 300 MG CAPSULE PO SCH ×2 (10:37→22:14)
[2021-08-06] MEDS: PANTOPRAZOLE 40 MG TABLET PO SCH (10:37)
[2021-08-06] MEDS: POLYETHYLENE GLYCOL (HEALTHYLAX) 3350 17 GM PACKET PO SCH ×2 (10:37→22:14)
[2021-08-06] MEDS: LIDOCAINE PATCH REMOVAL MC SCH (13:00)
[2021-08-06] MEDS ORDERED: MINERAL OIL ENEMA 133 ML ENEMA PR ONE (14:32)
[2021-08-07] MEDS: ACETAMINOPHEN 325 MG TABLET (FP) PO PRN ×2 (02:00→21:22)
[2021-08-07] MEDS: HYDROmorphone HCl 2 MG/ML VIAL IVPB PRN ×5 (02:13→21:07)
[2021-08-07] MEDS: LIDOCAINE PATCH REMOVAL MC SCH (10:12)
[2021-08-07] MEDS ORDERED: PT OWN MED DRAWER 7, Y5N ONE ×2 (11:07→15:35)
[2021-08-07] MEDS ORDERED: cefTRIAXone SODIUM 1 GM VIAL ONE (11:07)
[2021-08-07] MEDS ORDERED: DEXTROSE 5%-WATER - 50 ML IVPB ONE (11:08)
[2021-08-07] MEDS: HYDROmorphone HCL 2 MG TABLET PO PRN ×2 (11:14→20:07)
[2021-08-07] MEDS: CEFTRIAXONE 1 GM in DEXTROSE 5%-WATER - 50 ML IVPB SCH (11:15)
[2021-08-07] MEDS: GABAPENTIN 300 MG CAPSULE PO SCH ×2 (11:16→21:13)
[2021-08-07] MEDS: DOCUSATE SODIUM 100 MG CAPSULE (FP) PO SCH ×2 (11:16→21:12)
[2021-08-07] MEDS: POLYETHYLENE GLYCOL (HEALTHYLAX) 3350 17 GM PACKET PO SCH ×2 (11:16→21:13)
[2021-08-07] MEDS: APIXABAN 5 MG TABLET PO SCH ×2 (11:16→21:13)
[2021-08-07] MEDS: PANTOPRAZOLE 40 MG TABLET PO SCH (11:23)
[2021-08-07] MEDS: Methylnaltrexone Bromide 12 MG/0.6 ML KIT SQ SCH (16:11)
[2021-08-07] MEDS: ONDANSETRON 4 MG/2 ML VIAL IVPUSH PRN (17:00)
[2021-08-07] MEDS ORDERED: PIPERACILLIN/TAZOB 4.5 GM 4.5 GM in DEXTROSE 5%-WATER 100 ML IVPB SCH (18:45)
[2021-08-07] MEDS ORDERED: DEXTROSE 5%-WATER 100 ML IVPB ONE (20:00)
[2021-08-07] MEDS ORDERED: PIPERACILLIN/TAZOBACTAM 4.5 GM VIAL IVPB ONE (20:00)
[2021-08-07] MEDS: PIPERACILLIN/TAZOB 4.5 GM 4.5 GM in DEXTROSE 5%-WATER 100 ML IVPB SCH (20:05)
[2021-08-07] MEDS: LIDOCAINE 5% TOPICAL PATCH TP SCH (22:11)
[2021-08-08] MEDS ORDERED: PIPERACILLIN/TAZOBACTAM 4.5 GM VIAL IVPB ONE ×2 (01:11→09:34)
[2021-08-08] MEDS ORDERED: DEXTROSE 5%-WATER 100 ML IVPB ONE ×2 (01:11→09:34)
[2021-08-08] MEDS: PIPERACILLIN/TAZOB 4.5 GM 4.5 GM in DEXTROSE 5%-WATER 100 ML IVPB SCH ×2 (01:15→10:01)
[2021-08-08] MEDS: HYDROmorphone HCl 2 MG/ML VIAL IVPB PRN ×5 (04:30→21:42)
[2021-08-08] MEDS: ACETAMINOPHEN 325 MG TABLET (FP) PO PRN ×2 (06:23→20:36)
[2021-08-08 09:29] LABS: BASO % 0.3 % (0-2.0); EOS % 0.5 % (0-4.5); HEMATOCRIT 20.8 % (32.4-45.2); LYMPH % 12.1 % (8-40); MCH 28.1 pg (25.7-33.7); MCHC 32.9 g/dl (32.0-36.0); MEAN CELL VOLUME 85.3 fl (80-96); MEAN PLT VOLUME 8.1 fl (7.5-11.1); MONO % 10.6 % (3.8-10.2); NEUT % 76.5 % (42.8-82.8); PLATELET COUNT 166 10^3/uL (134-434); RBC 2.43 M/mm3 (3.60-5.2); RDW 17.1 % (11.6-15.6); WHITE BLOOD COUNT 5.8 K/mm3 (4.0-10.0)
[2021-08-08 09:31] LABS: HEMOGLOBIN 6.8 GM/dL (10.7-15.3)
[2021-08-08] MEDS: POLYETHYLENE GLYCOL (HEALTHYLAX) 3350 17 GM PACKET PO SCH ×2 (10:01→21:13)
[2021-08-08] MEDS: GABAPENTIN 300 MG CAPSULE PO SCH ×2 (10:01→21:14)
[2021-08-08] MEDS: APIXABAN 5 MG TABLET PO SCH ×2 (10:02→21:13)
[2021-08-08] MEDS: PANTOPRAZOLE 40 MG TABLET PO SCH (10:02)
[2021-08-08 10:03] LABS: CALCIUM 8.3 mg/dL (8.5-10.1)
[2021-08-08 10:04] LABS: MAGNESIUM 1.3 mg/dL (1.8-2.4)
[2021-08-08 10:06] LABS: TOT PROT 6.7 g/dl (6.4-8.2)
[2021-08-08 10:07] LABS: CREATININE 0.9 mg/dL (0.55-1.3); PHOSPHOROUS 2.8 mg/dL (2.5-4.9)
[2021-08-08] MEDS: LIDOCAINE PATCH REMOVAL MC SCH (10:09)
[2021-08-08 10:10] LABS: BILIRUBIN,TOTAL 0.6 mg/dL (0.2-1)
[2021-08-08 10:11] LABS: ALBUMIN 2.3 g/dl (3.4-5.0); BLOOD UREA NITROGEN 8.1 mg/dL (7-18)
[2021-08-08] MEDS: ONDANSETRON 4 MG/2 ML VIAL IVPUSH PRN (12:15)
[2021-08-08] MEDS ORDERED: FUROSEMIDE 40 MG/4 ML INJECTABLE VIAL IVPUSH ONE ×2 (15:28→21:15)
[2021-08-08] MEDS: HYDROmorphone HCL 2 MG TABLET PO PRN (17:19)
[2021-08-08] MEDS ORDERED: PIPERACILLIN/TAZOBACTAM 3.375 GM VIAL IVPB ONE (19:29)
[2021-08-08] MEDS ORDERED: DEXTROSE 5%-WATER - 50 ML IVPB ONE (19:29)
[2021-08-08] MEDS: PIPERACILLIN/TAZOB 3.375 GM 3.375 GM in DEXTROSE 5%-WATER - 50 ML IVPB SCH (19:40)
[2021-08-08] MEDS: DOCUSATE SODIUM 100 MG CAPSULE (FP) PO SCH (21:12)
[2021-08-09] MEDS ORDERED: PIPERACILLIN/TAZOBACTAM 3.375 GM VIAL IVPB ONE ×3 (02:04→16:34)
[2021-08-09] MEDS ORDERED: DEXTROSE 5%-WATER - 50 ML IVPB ONE ×3 (02:04→16:34)
[2021-08-09] MEDS: PIPERACILLIN/TAZOB 3.375 GM 3.375 GM in DEXTROSE 5%-WATER - 50 ML IVPB SCH ×3 (02:18→17:35)
[2021-08-09] MEDS: HYDROmorphone HCl 2 MG/ML VIAL IVPB PRN ×6 (02:39→21:06)
[2021-08-09] MEDS: LIDOCAINE 5% TOPICAL PATCH TP SCH ×2 (02:40→23:58)
[2021-08-09] MEDS: HYDROmorphone HCL 2 MG TABLET PO PRN (04:55)
[2021-08-09 08:05] LABS: MAGNESIUM 1.1 mg/dL (1.8-2.4)
[2021-08-09 08:09] LABS: PHOSPHOROUS 2.8 mg/dL (2.5-4.9)
[2021-08-09] MEDS: POLYETHYLENE GLYCOL (HEALTHYLAX) 3350 17 GM PACKET PO SCH ×2 (09:13→21:13)
[2021-08-09] MEDS: Methylnaltrexone Bromide 12 MG/0.6 ML KIT SQ SCH (09:14)
[2021-08-09] MEDS: PANTOPRAZOLE 40 MG TABLET PO SCH (09:14)
[2021-08-09] MEDS: LIDOCAINE PATCH REMOVAL MC SCH (09:14)
[2021-08-09] MEDS: GABAPENTIN 300 MG CAPSULE PO SCH ×2 (09:14→21:13)
[2021-08-09] MEDS: APIXABAN 5 MG TABLET PO SCH ×2 (09:14→21:13)
[2021-08-09] MEDS ORDERED: MAGNESIUM SULF 50% (8.12 MEQ/2 ML-1 GM VIAL) IVPB ONE (10:16)
[2021-08-09 10:51] LABS: CALCIUM 8.5 mg/dL (8.5-10.1)
[2021-08-09 10:52] LABS: BLOOD UREA NITROGEN 6.4 mg/dL (7-18)
[2021-08-09 10:55] LABS: CREATININE 0.9 mg/dL (0.55-1.3)
[2021-08-09] MEDS: ONDANSETRON 4 MG/2 ML VIAL IVPUSH PRN ×2 (11:31→17:42)
[2021-08-09 15:11] LABS: BASO % 0.8 % (0-2.0); EOS % 0.4 % (0-4.5); HEMATOCRIT 26.3 % (32.4-45.2); LYMPH % 11.4 % (8-40); MCH 28.8 pg (25.7-33.7); MEAN CELL VOLUME 84.8 fl (80-96); MEAN PLT VOLUME 8.3 fl (7.5-11.1); MONO % 9.5 % (3.8-10.2); NEUT % 77.9 % (42.8-82.8); PLATELET COUNT 173 10^3/uL (134-434); RBC 3.11 M/mm3 (3.60-5.2); RDW 16.8 % (11.6-15.6); WHITE BLOOD COUNT 6.2 K/mm3 (4.0-10.0)
[2021-08-09] MEDS: morphine SO4 SUSTAINED ACTING 30 MG TABLET.SA PO SCH (20:15)
[2021-08-09] MEDS: DOCUSATE SODIUM 100 MG CAPSULE (FP) PO SCH (21:13)
[2021-08-10] MEDS: HYDROmorphone HCl 2 MG/ML VIAL IVPB PRN ×6 (00:34→21:14)
[2021-08-10] MEDS ORDERED: PIPERACILLIN/TAZOBACTAM 3.375 GM VIAL IVPB ONE ×3 (00:50→17:04)
[2021-08-10] MEDS ORDERED: DEXTROSE 5%-WATER - 50 ML IVPB ONE ×3 (00:51→17:04)
[2021-08-10] MEDS: PIPERACILLIN/TAZOB 3.375 GM 3.375 GM in DEXTROSE 5%-WATER - 50 ML IVPB SCH ×3 (01:00→17:24)
[2021-08-10] MEDS: ONDANSETRON 4 MG/2 ML VIAL IVPUSH PRN (05:22)
[2021-08-10] MEDS: PORTA CATH FLUSH 10 ML IVPUSH PRN (05:26)
[2021-08-10] MEDS: morphine SO4 SUSTAINED ACTING 30 MG TABLET.SA PO SCH (06:15)
[2021-08-10 08:04] LABS: BLOOD UREA NITROGEN 5.1 mg/dL (7-18)
[2021-08-10 08:05] LABS: CALCIUM 8.2 mg/dL (8.5-10.1); MAGNESIUM 1.7 mg/dL (1.8-2.4)
[2021-08-10 08:06] LABS: CREATININE 0.9 mg/dL (0.55-1.3)
[2021-08-10 08:07] LABS: PHOSPHOROUS 2.8 mg/dL (2.5-4.9)
[2021-08-10 08:47] LABS: BASO % 0.3 % (0-2.0); EOS % 0.8 % (0-4.5); HEMATOCRIT 25.2 % (32.4-45.2); HEMOGLOBIN 8.6 GM/dL (10.7-15.3); LYMPH % 15.5 % (8-40); MCH 28.8 pg (25.7-33.7); MCHC 34.1 g/dl (32.0-36.0); MEAN CELL VOLUME 84.5 fl (80-96); MEAN PLT VOLUME 7.9 fl (7.5-11.1); MONO % 10.5 % (3.8-10.2); NEUT % 72.9 % (42.8-82.8); PLATELET COUNT 174 10^3/uL (134-434); RBC 2.99 M/mm3 (3.60-5.2); WHITE BLOOD COUNT 5.2 K/mm3 (4.0-10.0)
[2021-08-10] MEDS ORDERED: METOCLOPRAMIDE HCL INJECTION 10 MG/2 ML VIAL IVPUSH PRN (08:54)
[2021-08-10] MEDS ORDERED: MAGNESIUM SULF 50% (8.12 MEQ/2 ML-1 GM VIAL) IVPB ONE (09:15)
[2021-08-10] MEDS ORDERED: PT OWN MED DRAWER 7, Y5N ONE (10:39)
[2021-08-10] MEDS: POLYETHYLENE GLYCOL (HEALTHYLAX) 3350 17 GM PACKET PO SCH ×2 (10:44→21:01)
[2021-08-10] MEDS: KCL 10 MEQ IVPB 10 MEQ/100 ML INFUS.BAG IVPB SCH ×2 (10:44→14:17)
[2021-08-10] MEDS ORDERED: LIDOCAINE 5% TOPICAL PATCH TP SCH (10:45)
[2021-08-10] MEDS: PANTOPRAZOLE 40 MG TABLET PO SCH (10:45)
[2021-08-10] MEDS: APIXABAN 5 MG TABLET PO SCH ×2 (10:45→21:01)
[2021-08-10] MEDS: GABAPENTIN 300 MG CAPSULE PO SCH ×2 (10:45→21:01)
[2021-08-10] MEDS ORDERED: FENTANYL PATCH WASTE MC PRN (11:07)
[2021-08-10] MEDS ORDERED: fentaNYL 12mcg/hr PATCH.TD72 TD SCH (11:15)
[2021-08-10] MEDS: LIDOCAINE PATCH REMOVAL MC SCH (12:08)
[2021-08-10] MEDS ORDERED: HYDROmorphone HCL/PF 1 MG/ML VIAL IVPB PRN (17:08)
[2021-08-10] MEDS ORDERED: morphine SO4 SUSTAINED ACTING 30 MG TABLET.SA PO SCH (17:12)
[2021-08-10] MEDS ORDERED: fentaNYL 25mcg/hr PATCH.TD72 TD SCH (17:45)
[2021-08-10] MEDS: FENTANYL PATCH WASTE MC PRN (18:18)
[2021-08-10] MEDS: DOCUSATE SODIUM 100 MG CAPSULE (FP) PO SCH (21:01)
[2021-08-10] MEDS ORDERED: LIDOCAINE PATCH REMOVAL MC SCH (22:00)
[2021-08-10] MEDS: LIDOCAINE 5% TOPICAL PATCH TP SCH (22:42)
[2021-08-11] MEDS ORDERED: PIPERACILLIN/TAZOBACTAM 3.375 GM VIAL IVPB ONE ×3 (00:36→15:38)
[2021-08-11] MEDS ORDERED: DEXTROSE 5%-WATER - 50 ML IVPB ONE ×3 (00:36→15:38)
[2021-08-11] MEDS: HYDROmorphone HCl 2 MG/ML VIAL IVPB PRN ×5 (01:12→21:06)
[2021-08-11] MEDS: PIPERACILLIN/TAZOB 3.375 GM 3.375 GM in DEXTROSE 5%-WATER - 50 ML IVPB SCH ×3 (01:17→17:04)
[2021-08-11] MEDS: ACETAMINOPHEN 325 MG TABLET (FP) PO PRN ×2 (04:49→21:41)
[2021-08-11] MEDS ORDERED: HYDROmorphone HCl 2 MG/ML VIAL IVPB ONE ×2 (08:30→10:45)
[2021-08-11 08:41] LABS: BASO % 0.7 % (0-2.0); EOS % 0.7 % (0-4.5); HEMATOCRIT 25.1 % (32.4-45.2); HEMOGLOBIN 8.5 GM/dL (10.7-15.3); MCH 28.6 pg (25.7-33.7); MCHC 33.6 g/dl (32.0-36.0); MEAN CELL VOLUME 85.2 fl (80-96); MEAN PLT VOLUME 7.9 fl (7.5-11.1); MONO % 11.7 % (3.8-10.2); NEUT % 71.9 % (42.8-82.8); PLATELET COUNT 170 10^3/uL (134-434); RBC 2.95 M/mm3 (3.60-5.2); RDW 16.6 % (11.6-15.6); WHITE BLOOD COUNT 4.1 K/mm3 (4.0-10.0)
[2021-08-11 08:53] LABS: BLOOD UREA NITROGEN 5.8 mg/dL (7-18)
[2021-08-11 08:55] LABS: CALCIUM 8.3 mg/dL (8.5-10.1)
[2021-08-11 08:56] LABS: CREATININE 0.9 mg/dL (0.55-1.3); MAGNESIUM 1.8 mg/dL (1.8-2.4)
[2021-08-11] MEDS: GABAPENTIN 300 MG CAPSULE PO SCH ×2 (09:10→21:02)
[2021-08-11] MEDS: APIXABAN 5 MG TABLET PO SCH ×2 (09:10→21:03)
[2021-08-11] MEDS: POLYETHYLENE GLYCOL (HEALTHYLAX) 3350 17 GM PACKET PO SCH ×2 (09:10→21:02)
[2021-08-11] MEDS: PANTOPRAZOLE 40 MG TABLET PO SCH (09:10)
[2021-08-11] MEDS: LIDOCAINE PATCH REMOVAL MC SCH (09:11)
[2021-08-11] MEDS ORDERED: HYDROmorphone HCl 2 MG/ML VIAL IVPB PRN ×2 (09:39→18:37)
[2021-08-11] MEDS: Methylnaltrexone Bromide 12 MG/0.6 ML KIT SQ SCH (10:26)
[2021-08-11] MEDS: PORTA CATH FLUSH 10 ML IVPUSH PRN (10:32)
[2021-08-11] MEDS: METOCLOPRAMIDE HCL INJECTION 10 MG/2 ML VIAL IVPUSH PRN (10:36)
[2021-08-11] MEDS ORDERED: FENTANYL PATCH WASTE MC PRN ×2 (10:57→18:35)
[2021-08-11] MEDS ORDERED: fentaNYL 12mcg/hr PATCH.TD72 TD SCH (11:00)
[2021-08-11] MEDS: KCL 10 MEQ IVPB 10 MEQ/100 ML INFUS.BAG IVPB SCH ×2 (14:10→15:03)
[2021-08-11] MEDS ORDERED: fentaNYL 75mcg/hr PATCH.TD72 TD SCH (18:45)
[2021-08-11] MEDS: FENTANYL PATCH WASTE MC PRN (18:57)
[2021-08-11] MEDS: DOCUSATE SODIUM 100 MG CAPSULE (FP) PO SCH (21:01)
[2021-08-12] MEDS ORDERED: DEXTROSE 5%-WATER - 50 ML IVPB ONE ×3 (00:24→15:01)
[2021-08-12] MEDS ORDERED: PIPERACILLIN/TAZOBACTAM 3.375 GM VIAL IVPB ONE ×3 (00:24→15:01)
[2021-08-12] MEDS: LIDOCAINE 5% TOPICAL PATCH TP SCH ×2 (01:02→22:52)
[2021-08-12] MEDS: PIPERACILLIN/TAZOB 3.375 GM 3.375 GM in DEXTROSE 5%-WATER - 50 ML IVPB SCH ×3 (01:02→17:21)
[2021-08-12] MEDS: HYDROmorphone HCl 2 MG/ML VIAL IVPB PRN ×6 (01:45→21:45)
[2021-08-12] MEDS: ACETAMINOPHEN 325 MG TABLET (FP) PO PRN ×2 (05:51→15:55)
[2021-08-12 07:54] LABS: EOS % 1.8 % (0-4.5); HEMATOCRIT 25.1 % (32.4-45.2); HEMOGLOBIN 8.5 GM/dL (10.7-15.3); LYMPH % 19.3 % (8-40); MCH 29.1 pg (25.7-33.7); MEAN CELL VOLUME 85.8 fl (80-96); MEAN PLT VOLUME 7.9 fl (7.5-11.1); MONO % 12.8 % (3.8-10.2); NEUT % 65.1 % (42.8-82.8); PLATELET COUNT 189 10^3/uL (134-434); RBC 2.93 M/mm3 (3.60-5.2); RDW 17.1 % (11.6-15.6); WHITE BLOOD COUNT 3.9 K/mm3 (4.0-10.0)
[2021-08-12 09:02] LABS: BLOOD UREA NITROGEN 4.1 mg/dL (7-18); CALCIUM 8.3 mg/dL (8.5-10.1); CREATININE 0.8 mg/dL (0.55-1.3); MAGNESIUM 1.6 mg/dL (1.8-2.4); PHOSPHOROUS 2.6 mg/dL (2.5-4.9)
[2021-08-12] MEDS: GABAPENTIN 300 MG CAPSULE PO SCH ×2 (09:44→22:51)
[2021-08-12] MEDS: METOCLOPRAMIDE HCL INJECTION 10 MG/2 ML VIAL IVPUSH PRN ×2 (09:44→23:20)
[2021-08-12] MEDS: POLYETHYLENE GLYCOL (HEALTHYLAX) 3350 17 GM PACKET PO SCH (09:45)
[2021-08-12] MEDS: APIXABAN 5 MG TABLET PO SCH ×2 (09:45→22:51)
[2021-08-12] MEDS: PANTOPRAZOLE 40 MG TABLET PO SCH (09:46)
[2021-08-12] MEDS: LIDOCAINE PATCH REMOVAL MC SCH (09:54)
[2021-08-12] MEDS ORDERED: MAGNESIUM SULF 50% (8.12 MEQ/2 ML-1 GM VIAL) IVPB ONE (10:30)
[2021-08-12] MEDS: ONDANSETRON 4 MG/2 ML VIAL IVPB PRN ×2 (14:57→22:35)
[2021-08-12] MEDS: DOCUSATE SODIUM 100 MG CAPSULE (FP) PO SCH (22:51)
[2021-08-13] MEDS ORDERED: ACETAMINOPHEN 1000 MG/100 ML VIAL IVPB ONE ×2 (00:39→21:34)
[2021-08-13] MEDS ORDERED: DEXTROSE 5%-WATER - 50 ML IVPB ONE ×3 (00:42→16:54)
[2021-08-13] MEDS ORDERED: PIPERACILLIN/TAZOBACTAM 3.375 GM VIAL IVPB ONE ×3 (00:42→16:54)
[2021-08-13] MEDS: HYDROmorphone HCl 2 MG/ML VIAL IVPB PRN ×7 (00:54→23:21)
[2021-08-13] MEDS: PIPERACILLIN/TAZOB 3.375 GM 3.375 GM in DEXTROSE 5%-WATER - 50 ML IVPB SCH ×3 (01:15→17:23)
[2021-08-13] MEDS: PORTA CATH FLUSH 10 ML IVPUSH PRN (06:59)
[2021-08-13 08:30] LABS: ALBUMIN 2.3 g/dl (3.4-5.0)
[2021-08-13 08:33] LABS: CREATININE 0.8 mg/dL (0.55-1.3)
[2021-08-13] MEDS: METOCLOPRAMIDE HCL INJECTION 10 MG/2 ML VIAL IVPUSH PRN ×2 (08:34→22:52)
[2021-08-13 08:35] LABS: BILIRUBIN,TOTAL 0.7 mg/dL (0.2-1); TOT PROT 7.2 g/dl (6.4-8.2)
[2021-08-13] MEDS: ONDANSETRON 4 MG/2 ML VIAL IVPB PRN ×2 (08:43→21:23)
[2021-08-13] MEDS: PANTOPRAZOLE 40 MG TABLET PO SCH (09:13)
[2021-08-13] MEDS: GABAPENTIN 300 MG CAPSULE PO SCH ×2 (09:13→23:23)
[2021-08-13] MEDS: LIDOCAINE PATCH REMOVAL MC SCH (09:13)
[2021-08-13] MEDS: Methylnaltrexone Bromide 12 MG/0.6 ML KIT SQ SCH (09:13)
[2021-08-13] MEDS: APIXABAN 5 MG TABLET PO SCH ×2 (09:13→23:23)
[2021-08-13 09:58] LABS: BASO % 0.9 % (0-2.0); EOS % 0.5 % (0-4.5); HEMATOCRIT 25.1 % (32.4-45.2); HEMOGLOBIN 8.4 GM/dL (10.7-15.3); LYMPH % 14.7 % (8-40); MCH 28.8 pg (25.7-33.7); MCHC 33.5 g/dl (32.0-36.0); MEAN CELL VOLUME 85.8 fl (80-96); MONO % 12.1 % (3.8-10.2); NEUT % 71.8 % (42.8-82.8); PLATELET COUNT 178 10^3/uL (134-434); RBC 2.93 M/mm3 (3.60-5.2); RDW 16.9 % (11.6-15.6); WHITE BLOOD COUNT 4.2 K/mm3 (4.0-10.0)
[2021-08-13] MEDS ORDERED: POLYETHYLENE GLYCOL (HEALTHYLAX) 3350 17 GM PACKET PO SCH (10:00)
[2021-08-13] MEDS: ACETAMINOPHEN 325 MG TABLET (FP) PO PRN (12:01)
[2021-08-13] MEDS ORDERED: HYDROmorphone HCl 2 MG/ML VIAL IVPB ONE (18:41)
[2021-08-13] MEDS: POLYETHYLENE GLYCOL (HEALTHYLAX) 3350 17 GM PACKET PO SCH (23:25)
[2021-08-13] MEDS: DOCUSATE SODIUM 100 MG CAPSULE (FP) PO SCH (23:25)
[2021-08-13] MEDS: LIDOCAINE 5% TOPICAL PATCH TP SCH (23:47)
[2021-08-14] MEDS ORDERED: DEXTROSE 5%-WATER - 50 ML IVPB ONE ×2 (01:12→10:14)
[2021-08-14] MEDS ORDERED: PIPERACILLIN/TAZOBACTAM 3.375 GM VIAL IVPB ONE ×2 (01:12→10:14)
[2021-08-14] MEDS: PIPERACILLIN/TAZOB 3.375 GM 3.375 GM in DEXTROSE 5%-WATER - 50 ML IVPB SCH ×2 (01:27→10:19)
[2021-08-14] MEDS: ACETAMINOPHEN 325 MG TABLET (FP) PO PRN (02:07)
[2021-08-14] MEDS: HYDROmorphone HCl 2 MG/ML VIAL IVPB PRN ×7 (04:37→22:05)
[2021-08-14 07:17] LABS: BASO % 0.9 % (0-2.0); EOS % 0.7 % (0-4.5); HEMATOCRIT 23.4 % (32.4-45.2); HEMOGLOBIN 7.8 GM/dL (10.7-15.3); LYMPH % 14.7 % (8-40); MCH 28.6 pg (25.7-33.7); MCHC 33.5 g/dl (32.0-36.0); MEAN CELL VOLUME 85.3 fl (80-96); MEAN PLT VOLUME 7.9 fl (7.5-11.1); MONO % 11.4 % (3.8-10.2); NEUT % 72.3 % (42.8-82.8); PLATELET COUNT 191 10^3/uL (134-434); RBC 2.74 M/mm3 (3.60-5.2); RDW 16.8 % (11.6-15.6)
[2021-08-14 07:48] LABS: MAGNESIUM 1.4 mg/dL (1.8-2.4)
[2021-08-14 07:50] LABS: BLOOD UREA NITROGEN 5.7 mg/dL (7-18)
[2021-08-14 07:52] LABS: ALBUMIN 2.2 g/dl (3.4-5.0); PHOSPHOROUS 3.1 mg/dL (2.5-4.9)
[2021-08-14 07:55] LABS: BILIRUBIN,TOTAL 0.8 mg/dL (0.2-1)
[2021-08-14 07:56] LABS: TOT PROT 6.9 g/dl (6.4-8.2)
[2021-08-14] MEDS ORDERED: MAGNESIUM SULF 50% (8.12 MEQ/2 ML-1 GM VIAL) IVPB ONE ×2 (08:24→15:15)
[2021-08-14] MEDS: POLYETHYLENE GLYCOL (HEALTHYLAX) 3350 17 GM PACKET PO SCH ×2 (10:28→21:40)
[2021-08-14] MEDS: GABAPENTIN 300 MG CAPSULE PO SCH ×2 (10:29→21:40)
[2021-08-14] MEDS: PANTOPRAZOLE 40 MG TABLET PO SCH (10:29)
[2021-08-14] MEDS: LIDOCAINE PATCH REMOVAL MC SCH (10:29)
[2021-08-14] MEDS: ONDANSETRON 4 MG/2 ML VIAL IVPB PRN (10:37)
[2021-08-14] MEDS: METOCLOPRAMIDE HCL INJECTION 10 MG/2 ML VIAL IVPUSH PRN (12:09)
[2021-08-14] MEDS ORDERED: oxyCODONE HCL 5 MG TABLET PO ONE (12:18)
[2021-08-14] MEDS ORDERED: morphine SULFATE 4 MG/ML VIAL IVPUSH ONE (12:23)
[2021-08-14] MEDS ORDERED: FENTANYL PATCH WASTE TD PRN (12:33)
[2021-08-14] MEDS ORDERED: fentaNYL 100mcg/hr PATCH.TD72 TD SCH (12:45)
[2021-08-14] MEDS ORDERED: ACETAMINOPHEN 1000 MG/100 ML VIAL IVPB ONE (13:06)
[2021-08-14] MEDS: APIXABAN 5 MG TABLET PO SCH ×2 (15:16→21:40)
[2021-08-14] MEDS: NAPROXEN 250 MG TABLET PO SCH (16:42)
[2021-08-14] MEDS: DOCUSATE SODIUM 100 MG CAPSULE (FP) PO SCH (21:40)
[2021-08-15] MEDS: HYDROmorphone HCl 2 MG/ML VIAL IVPB PRN ×3 (01:08→12:03)
[2021-08-15] MEDS: ACETAMINOPHEN 325 MG TABLET (FP) PO PRN ×2 (02:42→22:47)
[2021-08-15] MEDS: PORTA CATH FLUSH 10 ML IVPUSH PRN (06:35)
[2021-08-15 07:17] LABS: BASO % 0.9 % (0-2.0); EOS % 1.9 % (0-4.5); HEMATOCRIT 21.1 % (32.4-45.2); HEMOGLOBIN 7.2 GM/dL (10.7-15.3); LYMPH % 26.2 % (8-40); MCH 28.8 pg (25.7-33.7); MCHC 33.8 g/dl (32.0-36.0); MEAN CELL VOLUME 85.3 fl (80-96); MEAN PLT VOLUME 8.2 fl (7.5-11.1); MONO % 13.2 % (3.8-10.2); NEUT % 57.8 % (42.8-82.8); PLATELET COUNT 194 10^3/uL (134-434); RBC 2.48 M/mm3 (3.60-5.2); WHITE BLOOD COUNT 4.6 K/mm3 (4.0-10.0)
[2021-08-15 07:36] LABS: ALBUMIN 2.2 g/dl (3.4-5.0); BLOOD UREA NITROGEN 7.1 mg/dL (7-18); MAGNESIUM 1.7 mg/dL (1.8-2.4)
[2021-08-15 07:39] LABS: CREATININE 0.9 mg/dL (0.55-1.3)
[2021-08-15 07:41] LABS: BILIRUBIN,TOTAL 0.4 mg/dL (0.2-1); TOT PROT 6.9 g/dl (6.4-8.2)
[2021-08-15] MEDS: NAPROXEN 250 MG TABLET PO SCH ×2 (09:03→21:10)
[2021-08-15] MEDS: GABAPENTIN 300 MG CAPSULE PO SCH ×2 (09:03→21:11)
[2021-08-15] MEDS: POLYETHYLENE GLYCOL (HEALTHYLAX) 3350 17 GM PACKET PO SCH ×2 (09:03→21:09)
[2021-08-15] MEDS: APIXABAN 5 MG TABLET PO SCH ×2 (09:03→21:09)
[2021-08-15] MEDS: PANTOPRAZOLE 40 MG TABLET PO SCH (09:03)
[2021-08-15] MEDS: LIDOCAINE PATCH REMOVAL MC SCH (09:04)
[2021-08-15] MEDS: ONDANSETRON 4 MG/2 ML VIAL IVPB PRN (09:26)
[2021-08-15] MEDS: METOCLOPRAMIDE HCL INJECTION 10 MG/2 ML VIAL IVPUSH PRN ×2 (10:23→16:52)
[2021-08-15] MEDS: SENNOSIDES 8.6MG TABLET (FP) PO SCH ×2 (12:12→21:11)
[2021-08-15] MEDS: morphine SULFATE IMMEDIATE RELEASE 30 MG TAB PO PRN ×2 (16:52→21:10)
[2021-08-15] MEDS: Methylnaltrexone Bromide 12 MG/0.6 ML KIT SQ SCH (16:54)
[2021-08-15] MEDS: LIDOCAINE 5% TOPICAL PATCH TP SCH ×3 (22:20→22:52)
[2021-08-16] MEDS: morphine SULFATE IMMEDIATE RELEASE 30 MG TAB PO PRN ×4 (03:39→17:39)
[2021-08-16 07:25] LABS: BASO % 0.8 % (0-2.0); EOS % 2.1 % (0-4.5); HEMATOCRIT 19.1 % (32.4-45.2); LYMPH % 26.8 % (8-40); MCH 28.7 pg (25.7-33.7); MCHC 33.6 g/dl (32.0-36.0); MEAN CELL VOLUME 85.4 fl (80-96); MEAN PLT VOLUME 8.1 fl (7.5-11.1); MONO % 9.1 % (3.8-10.2); NEUT % 61.2 % (42.8-82.8); PLATELET COUNT 192 10^3/uL (134-434); RBC 2.24 M/mm3 (3.60-5.2); RDW 17.1 % (11.6-15.6); WHITE BLOOD COUNT 5.1 K/mm3 (4.0-10.0)
[2021-08-16 07:27] LABS: HEMOGLOBIN 6.4 GM/dL (10.7-15.3)
[2021-08-16] MEDS: METOCLOPRAMIDE HCL INJECTION 10 MG/2 ML VIAL IVPUSH PRN (07:57)
[2021-08-16 09:09] LABS: CREATININE 1.1 mg/dL (0.55-1.3)
[2021-08-16 09:10] LABS: PHOSPHOROUS 2.8 mg/dL (2.5-4.9)
[2021-08-16 09:13] LABS: BLOOD UREA NITROGEN 10.6 mg/dL (7-18); CALCIUM 8.3 mg/dL (8.5-10.1); MAGNESIUM 1.6 mg/dL (1.8-2.4)
[2021-08-16] MEDS: GABAPENTIN 300 MG CAPSULE PO SCH (10:22)
[2021-08-16] MEDS: NAPROXEN 250 MG TABLET PO SCH (10:22)
[2021-08-16] MEDS: POLYETHYLENE GLYCOL (HEALTHYLAX) 3350 17 GM PACKET PO SCH (10:22)
[2021-08-16] MEDS: SENNOSIDES 8.6MG TABLET (FP) PO SCH (10:22)
[2021-08-16] MEDS: PANTOPRAZOLE 40 MG TABLET PO SCH (10:22)
[2021-08-16] MEDS: ACETAMINOPHEN 325 MG TABLET (FP) PO PRN (10:23)
[2021-08-16] MEDS: LIDOCAINE PATCH REMOVAL MC SCH (10:23)
[2021-08-16] MEDS: APIXABAN 5 MG TABLET PO SCH (10:23)
[2021-08-16 14:35] VITALS: BP 105/69; PULSE 114; TEMP 98.7
[2021-08-16] MEDS ORDERED: fentaNYL 100mcg/hr PATCH.TD72 TD SCH (19:00)
[2021-08-16] MEDS ORDERED: FENTANYL PATCH WASTE MC PRN (19:00)
[2021-08-17] MEDS ORDERED: FENTANYL PATCH WASTE TD PRN (14:00)
[2021-08-17] MEDS ORDERED: fentaNYL 100mcg/hr PATCH.TD72 TD SCH (14:00)
== END 2021-08-16 19:26 | disposition home or self-care (01) | DRG 463 ==
LOC: JER 17:18 → JERBED 08-04 01:31 → J7W 08-04 09:24
PROVIDERS: ADMIT Internal Medicine
PROC: 30233N1 Transfusion of Nonautologous Red Blood Cells into Peripheral Vein, Percutaneous Approach (ICD-10-PCS; principal; 2021-08-08)
DX: N13.6 Pyonephrosis (principal); N17.9 Acute kidney failure, unspecified; B96.20 Unspecified Escherichia coli [E. coli] as the cause of diseases classified elsewhere; C23 Malignant neoplasm of gallbladder; D64.81 Anemia due to antineoplastic chemotherapy; R18.8 Other ascites; G89.3 Neoplasm related pain (acute) (chronic); K59.00 Constipation, unspecified; R11.2 Nausea with vomiting, unspecified; K76.0 Fatty (change of) liver, not elsewhere classified; R59.0 Localized enlarged lymph nodes; R79.89 Other specified abnormal findings of blood chemistry; D64.9 Anemia, unspecified; E83.42 Hypomagnesemia; K83.1 Obstruction of bile duct; M54.50 Low back pain, unspecified; D84.9 Immunodeficiency, unspecified; B18.8 Other chronic viral hepatitis; T45.1X5A Adverse effect of antineoplastic and immunosuppressive drugs, initial encounter
CPT/HCPCS: 36415; 36430; 71046-TC-FY; 72128-TC; 72131-TC; 72146-TC; 72148-TC; 74177-TC; 76775-TC; 80048; 80053; 81003; 82150; 82550; 82553; 83605; 83615; 83690; 83735; 84100; 84439; 84443; 85025; 85027; 86850; 86900; 86901; 86922; 87040; 87086; 87186; 93005; 93010; 97116-GP; 97162-GP; 99285-25; C9803; J0131; P9058; Q9967; U0003; U0005

== ENCOUNTER 2021-08-17 07:24 | Day surgery (SDC) | payer OTHER ==
[2021-08-17] MEDS ORDERED: IPILIMUMAB IVPB ONE (10:00)
[2021-08-17] MEDS ORDERED: SODIUM CHLORIDE IVPB ONE ×2 (10:00→10:30)
[2021-08-17] MEDS ORDERED: SODIUM CHLORIDE 1,000 ML IV STA (10:25)
[2021-08-17] MEDS ORDERED: ACETAMINOPHEN 1000 MG/100 ML VIAL IVPB ONE ×2 (10:26→15:30)
[2021-08-17] MEDS ORDERED: NIVOLUMAB IVPB ONE (10:30)
[2021-08-17 10:46] LABS: BASO % 0.5 % (0-2.0); EOS % 1.1 % (0-4.5); HEMATOCRIT 24.6 % (32.4-45.2); HEMOGLOBIN 8.4 GM/dL (10.7-15.3); LYMPH % 15.8 % (8-40); MCH 28.2 pg (25.7-33.7); MCHC 34.2 g/dl (32.0-36.0); MEAN CELL VOLUME 82.4 fl (80-96); MEAN PLT VOLUME 8.2 fl (7.5-11.1); MONO % 4.1 % (3.8-10.2); NEUT % 78.5 % (42.8-82.8); PLATELET COUNT 256 10^3/uL (134-434); RBC 2.99 M/mm3 (3.60-5.2); RDW 18.7 % (11.6-15.6); WHITE BLOOD COUNT 9.3 K/mm3 (4.0-10.0)
[2021-08-17 11:05] LABS: BLOOD UREA NITROGEN 15.1 mg/dL (7-18)
[2021-08-17 11:07] LABS: CALCIUM 8.7 mg/dL (8.5-10.1)
[2021-08-17 11:08] LABS: CREATININE 1.7 mg/dL (0.55-1.3); MAGNESIUM 1.6 mg/dL (1.8-2.4)
[2021-08-17 11:10] LABS: BILIRUBIN,TOTAL 0.7 mg/dL (0.2-1); TOT PROT 7.8 g/dl (6.4-8.2)
[2021-08-17 11:37] LABS: ALBUMIN 2.8 g/dl (3.4-5.0)
[2021-08-17] MEDS ORDERED: MAGNESIUM SULF 50% (8.12 MEQ/2 ML-1 GM VIAL) IVPB ONE (15:12)
[2021-08-17] MEDS ORDERED: MAGNESIUM SULF 50% (8.12 MEQ/2 ML-1 GM VIAL) ONE (15:24)
[2021-08-17] MEDS ORDERED: NAPROXEN 250 MG TABLET PO SCH (15:30)
[2021-08-17] MEDS ORDERED: methylPREDNISolone NA SUCC 125 MG/2 ML VIAL IVPB ONE (15:30)
[2021-08-17] MEDS ORDERED: DIPHENHYDRAMINE 25 MG in SODIUM CHLORIDE 50 ML IVPB ONE (15:30)
[2021-08-17 19:20] VITALS: BP 127/77; PULSE 121; TEMP 102.1
== END 2021-08-17 19:00 | disposition home or self-care (01) ==
LOC: JONCCHEMO 07:24
PROVIDERS: ATTEND Internal Medicine Hematology & Oncology
DX: Z51.11 Encounter for antineoplastic chemotherapy (principal); C23 Malignant neoplasm of gallbladder; C79.9 Secondary malignant neoplasm of unspecified site
CPT/HCPCS: 36415; 80053; 83735; 85025; 96361; 96367; 96375; 96413; 96417; J0131; J9228; J9299

== ENCOUNTER 2021-08-17 19:19 | Inpatient (IN) | payer OTHER ==
[2021-08-17 19:51] VITALS: BMI 27.6
[2021-08-17] MEDS ORDERED: LACTATED RINGERS SOLUTION 1000 ML INFUS.BAG IV ONE (19:51)
[2021-08-17] MEDS ORDERED: ACETAMINOPHEN 1000 MG/100 ML VIAL IVPB ONE (19:51)
[2021-08-17] MEDS ORDERED: ACETAMINOPHEN INJECTION 100 ML IVPB ONE (19:52)
[2021-08-17] MEDS ORDERED: ONDANSETRON 4 MG/2 ML VIAL IVPUSH ONE (20:04)
[2021-08-17] MEDS ORDERED: FAMOTIDINE 20 MG/50 ML IVPB 20 MG/50 ML MG IVPB ONE ×2 (20:04→20:10)
[2021-08-17] MEDS ORDERED: PANTOPRAZOLE SODIUM 40 MG/100 ML BAG IVPB ONE (20:09)
[2021-08-17] MEDS ORDERED: ONDANSETRON 4 MG/2 ML VIAL ONE (20:09)
[2021-08-17] MEDS ORDERED: SODIUM CHLORIDE 1,000 ML IV SCH (20:15)
[2021-08-17] MEDS: HYDROmorphone HCl 2 MG/ML VIAL IVPB PRN (20:55)
[2021-08-17] MEDS ORDERED: methylPREDNISolone NA SUCC 40 MG/1 ML VIAL IVPUSH SCH (22:30)
[2021-08-17] MEDS ORDERED: PORTA CATH FLUSH 10 ML IVPUSH PRN (23:05)
[2021-08-18] MEDS: methylPREDNISolone NA SUCC 40 MG/1 ML VIAL IVPB SCH ×2 (02:18→09:55)
[2021-08-18] MEDS: HYDROmorphone HCl 2 MG/ML VIAL IVPB PRN ×6 (04:56→22:22)
[2021-08-18] MEDS: ONDANSETRON 4 MG/2 ML VIAL IVPB PRN ×2 (05:08→21:40)
[2021-08-18] MEDS: ACETAMINOPHEN 1000 MG/100 ML VIAL IVPB PRN ×2 (05:56→13:06)
[2021-08-18] MEDS: SODIUM CHLORIDE 1,000 ML IV SCH ×2 (07:40→19:23)
[2021-08-18 08:38] LABS: INR 1.53 (0.83-1.09); PROTHROMBIN TIME (PATIENT) 17.2 SEC (9.7-13.0)
[2021-08-18 08:39] LABS: HEMATOCRIT 18.4 % (32.4-45.2); MCH 28.2 pg (25.7-33.7); MCHC 33.9 g/dl (32.0-36.0); MEAN CELL VOLUME 83.2 fl (80-96); MEAN PLT VOLUME 8.5 fl (7.5-11.1); PLATELET COUNT 139 10^3/uL (134-434); RBC 2.21 M/mm3 (3.60-5.2); RDW 18.7 % (11.6-15.6); WHITE BLOOD COUNT 6.3 K/mm3 (4.0-10.0)
[2021-08-18 08:41] LABS: ACTIVATED PTT 26.8 SECONDS (25.2-36.5)
[2021-08-18 08:57] LABS: ALBUMIN 2.2 g/dl (3.4-5.0); BLOOD UREA NITROGEN 13.2 mg/dL (7-18); CALCIUM 7.8 mg/dL (8.5-10.1)
[2021-08-18 09:00] LABS: CREATININE 1.1 mg/dL (0.55-1.3); URIC ACID 6.3 mg/dL (2.6-7.2)
[2021-08-18 09:02] LABS: BILIRUBIN,TOTAL 0.6 mg/dL (0.2-1); TOT PROT 6.4 g/dl (6.4-8.2)
[2021-08-18 09:09] LABS: HEMOGLOBIN 6.2 GM/dL (10.7-15.3)
[2021-08-18 10:13] LABS: ANISOCYTOSIS 1+; MACROCYTOSIS 0; OVALOCYTE 1+; PLATELET ESTIMATE DECREASED; TEAR DROP CELLS 1+
[2021-08-18] MEDS: NAPROXEN 250 MG TABLET PO SCH ×2 (10:13→21:34)
[2021-08-18] MEDS: PANTOPRAZOLE SODIUM 40 MG VIAL IVPB SCH (10:14)
[2021-08-18 12:52] LABS: EPI CELLS 25 /uL (0-25.1); HYALINE CASTS 1 /uL (0-3.1); PH,URINE 5.5 (5.0-8.0); URINE APPEARANCE CLOUDY; URINE BACTERIA 233 /uL (0-1359); URINE BILIRUBIN NEGATIVE (NEGATIVE); URINE COLOR YELLOW; URINE GLUCOSE (UA) NEGATIVE (NEGATIVE); URINE KETONE TRACE (NEGATIVE); URINE LEUK ESTERASE 1+ (NEGATIVE); URINE NITRITE NEGATIVE (NEGATIVE); URINE PROTEIN 1+ (NEGATIVE); URINE RBC 1124 /uL (0-23.9); URINE UROBILINOGEN 0.2 mg/dL (0.2-1.0); URINE WBC 265 /uL (0-25.8)
[2021-08-18] MEDS: METOCLOPRAMIDE HCL INJECTION 10 MG/2 ML VIAL IVPB PRN (15:46)
[2021-08-18] MEDS: CEFEPIME 1 GM in DEXTROSE 5%-WATER 100 ML IVPB SCH ×2 (16:12→20:17)
[2021-08-18] MEDS ORDERED: CEFEPIME HCL 1 GM VIAL (RESTRICTED TO ID) ONE (20:09)
[2021-08-18] MEDS ORDERED: DEXTROSE 5%-WATER 100 ML IVPB ONE (20:09)
[2021-08-18] MEDS: POLYETHYLENE GLYCOL (HEALTHYLAX) 3350 17 GM PACKET PO SCH (20:17)
[2021-08-18] MEDS: Methylnaltrexone Bromide 12 MG/0.6 ML KIT SQ SCH (21:35)
[2021-08-19] MEDS ORDERED: CEFEPIME HCL 1 GM VIAL (RESTRICTED TO ID) ONE ×2 (00:53→09:52)
[2021-08-19] MEDS ORDERED: DEXTROSE 5%-WATER 100 ML IVPB ONE ×2 (00:53→09:52)
[2021-08-19] MEDS: ACETAMINOPHEN 1000 MG/100 ML VIAL IVPB PRN ×3 (01:00→22:37)
[2021-08-19] MEDS: CEFEPIME 1 GM in DEXTROSE 5%-WATER 100 ML IVPB SCH ×3 (01:01→17:19)
[2021-08-19] MEDS: HYDROmorphone HCl 2 MG/ML VIAL IVPB PRN ×5 (01:22→13:55)
[2021-08-19] MEDS ORDERED: FENTANYL PATCH WASTE MC PRN ×2 (03:28→03:33)
[2021-08-19] MEDS ORDERED: fentaNYL 100mcg/hr PATCH.TD72 TD SCH (03:30)
[2021-08-19] MEDS ORDERED: fentaNYL 25mcg/hr PATCH.TD72 TD SCH (03:45)
[2021-08-19] MEDS: METOCLOPRAMIDE HCL INJECTION 10 MG/2 ML VIAL IVPB PRN ×3 (04:34→15:38)
[2021-08-19] MEDS: SODIUM CHLORIDE 1,000 ML IV SCH (06:18)
[2021-08-19] MEDS ORDERED: fentaNYL 75mcg/hr PATCH.TD72 TD SCH (06:45)
[2021-08-19] MEDS ORDERED: AMINO ACIDS 4.25%/D5W 1,000 ML IV SCH (08:30)
[2021-08-19 09:01] LABS: CALCIUM 7.6 mg/dL (8.5-10.1)
[2021-08-19 09:02] LABS: BLOOD UREA NITROGEN 10.2 mg/dL (7-18)
[2021-08-19 09:05] LABS: CREATININE 0.9 mg/dL (0.55-1.3)
[2021-08-19 09:06] LABS: BILIRUBIN,TOTAL 0.6 mg/dL (0.2-1); TOT PROT 6.2 g/dl (6.4-8.2)
[2021-08-19 09:45] LABS: BASO % 0.3 % (0-2.0); EOS % 0.1 % (0-4.5); HEMATOCRIT 21.1 % (32.4-45.2); HEMOGLOBIN 7.2 GM/dL (10.7-15.3); LYMPH % 7.5 % (8-40); MCH 28.8 pg (25.7-33.7); MCHC 33.9 g/dl (32.0-36.0); MEAN PLT VOLUME 8.2 fl (7.5-11.1); MONO % 5.4 % (3.8-10.2); NEUT % 86.7 % (42.8-82.8); PLATELET COUNT 137 10^3/uL (134-434); RBC 2.49 M/mm3 (3.60-5.2); RDW 19.1 % (11.6-15.6); WHITE BLOOD COUNT 6.3 K/mm3 (4.0-10.0)
[2021-08-19] MEDS: ONDANSETRON 4 MG/2 ML VIAL IVPB PRN ×2 (09:54→18:43)
[2021-08-19] MEDS: NAPROXEN 250 MG TABLET PO SCH ×4 (10:06→21:14)
[2021-08-19] MEDS: PANTOPRAZOLE SODIUM 40 MG VIAL IVPB SCH (10:06)
[2021-08-19] MEDS: DRONABINOL 2.5 MG CAPSULE PO SCH ×3 (10:06→11:25)
[2021-08-19] MEDS: POLYETHYLENE GLYCOL (HEALTHYLAX) 3350 17 GM PACKET PO SCH (10:07)
[2021-08-19] MEDS: FENTANYL PATCH WASTE MC PRN ×2 (10:38→19:28)
[2021-08-19] MEDS: AMINO ACIDS 4.25%/D5W 1,000 ML IV SCH ×2 (12:39→21:13)
[2021-08-19] MEDS ORDERED: APIXABAN 5 MG TABLET PO SCH (13:30)
[2021-08-19] MEDS: ENOXAPARIN NA (PORCINE) 80 MG/0.8 ML DISP.SYRIN SQ SCH ×2 (13:57→21:14)
[2021-08-19] MEDS ORDERED: PCA PUMP NR ONE (15:01)
[2021-08-19] MEDS: HYDROmorphone *PCA* 10MG/50ML DISP.SYRIN PCA SCH (15:07)
[2021-08-20] MEDS: HYDROmorphone *PCA* 10MG/50ML DISP.SYRIN PCA SCH ×4 (01:20→21:10)
[2021-08-20] MEDS ORDERED: DEXTROSE 5%-WATER 100 ML IVPB ONE ×3 (01:34→17:34)
[2021-08-20] MEDS ORDERED: CEFEPIME HCL 1 GM VIAL (RESTRICTED TO ID) ONE ×3 (01:34→17:33)
[2021-08-20] MEDS: CEFEPIME 1 GM in DEXTROSE 5%-WATER 100 ML IVPB SCH ×3 (01:35→18:03)
[2021-08-20] MEDS: METOCLOPRAMIDE HCL INJECTION 10 MG/2 ML VIAL IVPB PRN (01:35)
[2021-08-20] MEDS ORDERED: ACETAMINOPHEN 1000 MG/100 ML VIAL IVPB ONE (02:38)
[2021-08-20] MEDS: ONDANSETRON 4 MG/2 ML VIAL IVPB PRN (05:16)
[2021-08-20] MEDS: ONDANSETRON 4 MG/2 ML VIAL IVPB SCH ×2 (08:35→15:42)
[2021-08-20] MEDS: METOCLOPRAMIDE HCL INJECTION 10 MG/2 ML VIAL IVPB SCH ×2 (09:21→17:01)
[2021-08-20] MEDS: POLYETHYLENE GLYCOL (HEALTHYLAX) 3350 17 GM PACKET PO SCH (09:50)
[2021-08-20] MEDS: AMINO ACIDS 4.25%/D5W 1,000 ML IV SCH ×2 (10:29→21:16)
[2021-08-20] MEDS: SODIUM CHLORIDE 1,000 ML IV SCH (10:47)
[2021-08-20] MEDS ORDERED: PCA PUMP NR ONE ×2 (10:49→21:08)
[2021-08-20] MEDS: NAPROXEN 250 MG TABLET PO SCH ×3 (10:51→21:10)
[2021-08-20] MEDS: PANTOPRAZOLE SODIUM 40 MG VIAL IVPB SCH (10:51)
[2021-08-20] MEDS: ENOXAPARIN NA (PORCINE) 80 MG/0.8 ML DISP.SYRIN SQ SCH ×2 (10:52→21:10)
[2021-08-20] MEDS: DRONABINOL 2.5 MG CAPSULE PO SCH ×2 (10:52→15:37)
[2021-08-20] MEDS: LORazepam 2 MG/ML SDV VIAL IVPB PRN (11:47)
[2021-08-20] MEDS ORDERED: PT OWN MED DRAWER 7, Y5N ONE (14:04)
[2021-08-20] MEDS ORDERED: LORazepam 2 MG/ML SDV VIAL IVPB ONE (19:20)
[2021-08-20] MEDS: Methylnaltrexone Bromide 12 MG/0.6 ML KIT SQ SCH (22:21)
[2021-08-20] MEDS: ACETAMINOPHEN 1000 MG/100 ML VIAL IVPB PRN (22:30)
[2021-08-21] MEDS: ONDANSETRON 4 MG/2 ML VIAL IVPB SCH ×3 (00:25→15:45)
[2021-08-21] MEDS ORDERED: DEXTROSE 5%-WATER 100 ML IVPB ONE ×2 (00:34→09:33)
[2021-08-21] MEDS ORDERED: CEFEPIME HCL 1 GM VIAL (RESTRICTED TO ID) ONE ×2 (00:34→09:33)
[2021-08-21] MEDS: CEFEPIME 1 GM in DEXTROSE 5%-WATER 100 ML IVPB SCH ×2 (00:59→09:57)
[2021-08-21] MEDS: METOCLOPRAMIDE HCL INJECTION 10 MG/2 ML VIAL IVPB SCH ×3 (01:02→17:59)
[2021-08-21] MEDS ORDERED: PCA PUMP NR ONE ×4 (06:18→21:22)
[2021-08-21] MEDS: HYDROmorphone *PCA* 10MG/50ML DISP.SYRIN PCA SCH ×4 (06:19→21:23)
[2021-08-21] MEDS: LORazepam 2 MG/ML SDV VIAL IVPB PRN (08:14)
[2021-08-21 08:42] LABS: BASO % 0.3 % (0-2.0); EOS % 0.1 % (0-4.5); HEMATOCRIT 25.1 % (32.4-45.2); HEMOGLOBIN 8.8 GM/dL (10.7-15.3); LYMPH % 8.5 % (8-40); MCH 29.3 pg (25.7-33.7); MCHC 34.9 g/dl (32.0-36.0); MEAN PLT VOLUME 8.2 fl (7.5-11.1); MONO % 7.3 % (3.8-10.2); NEUT % 83.8 % (42.8-82.8); PLATELET COUNT 133 10^3/uL (134-434); RBC 2.99 M/mm3 (3.60-5.2); RDW 17.6 % (11.6-15.6); WHITE BLOOD COUNT 5.6 K/mm3 (4.0-10.0)
[2021-08-21 08:58] LABS: CALCIUM 7.5 mg/dL (8.5-10.1)
[2021-08-21 08:59] LABS: ALBUMIN 2.2 g/dl (3.4-5.0); BLOOD UREA NITROGEN 16.5 mg/dL (7-18)
[2021-08-21 09:05] LABS: BILIRUBIN,TOTAL 1.9 mg/dL (0.2-1); TOT PROT 6.9 g/dl (6.4-8.2)
[2021-08-21] MEDS: ACETAMINOPHEN 1000 MG/100 ML VIAL IVPB PRN ×2 (09:43→21:06)
[2021-08-21] MEDS: ENOXAPARIN NA (PORCINE) 80 MG/0.8 ML DISP.SYRIN SQ SCH ×2 (09:57→22:13)
[2021-08-21] MEDS: AMINO ACIDS 4.25%/D5W 1,000 ML IV SCH ×2 (09:57→22:13)
[2021-08-21] MEDS: POLYETHYLENE GLYCOL (HEALTHYLAX) 3350 17 GM PACKET PO SCH (09:58)
[2021-08-21] MEDS: PANTOPRAZOLE SODIUM 40 MG VIAL IVPB SCH (09:58)
[2021-08-21] MEDS: NAPROXEN 250 MG TABLET PO SCH ×3 (10:00→22:13)
[2021-08-21] MEDS: DRONABINOL 2.5 MG CAPSULE PO SCH ×2 (10:00→10:21)
[2021-08-21] MEDS: SODIUM CHLORIDE 1,000 ML IV SCH (10:29)
[2021-08-21] MEDS: IBUPROFEN 800 MG/8 ML IJ IVPB PRN (14:47)
[2021-08-21] MEDS: KCL 10 MEQ IVPB 10 MEQ/100 ML INFUS.BAG IVPB SCH ×4 (14:51→18:44)
[2021-08-21] MEDS ORDERED: LORazepam 2 MG/ML SDV VIAL IVPB PRN (18:28)
[2021-08-21] MEDS: LORazepam 2 MG/ML SDV VIAL IVPUSH PRN (20:06)
[2021-08-22] MEDS: ONDANSETRON 4 MG/2 ML VIAL IVPB SCH ×3 (01:07→16:31)
[2021-08-22] MEDS: IBUPROFEN 800 MG/8 ML IJ IVPB PRN ×3 (01:46→22:16)
[2021-08-22] MEDS: METOCLOPRAMIDE HCL INJECTION 10 MG/2 ML VIAL IVPB SCH ×3 (02:45→17:20)
[2021-08-22] MEDS ORDERED: PCA PUMP NR ONE ×3 (03:53→18:43)
[2021-08-22] MEDS: HYDROmorphone *PCA* 10MG/50ML DISP.SYRIN PCA SCH ×4 (04:01→18:44)
[2021-08-22] MEDS: LORazepam 2 MG/ML SDV VIAL IVPUSH PRN ×2 (05:30→18:41)
[2021-08-22] MEDS: DRONABINOL 2.5 MG CAPSULE PO SCH (09:09)
[2021-08-22] MEDS: POLYETHYLENE GLYCOL (HEALTHYLAX) 3350 17 GM PACKET PO SCH (09:09)
[2021-08-22] MEDS: NAPROXEN 250 MG TABLET PO SCH ×2 (09:09→22:40)
[2021-08-22] MEDS: PANTOPRAZOLE SODIUM 40 MG VIAL IVPB SCH (09:18)
[2021-08-22] MEDS: ENOXAPARIN NA (PORCINE) 80 MG/0.8 ML DISP.SYRIN SQ SCH ×2 (09:20→22:16)
[2021-08-22] MEDS: ACETAMINOPHEN 1000 MG/100 ML VIAL IVPB PRN ×2 (09:40→17:20)
[2021-08-22] MEDS: AMINO ACIDS 4.25%/D5W 1,000 ML IV SCH ×2 (12:08→22:41)
[2021-08-22] MEDS: KCL 10 MEQ IVPB 10 MEQ/100 ML INFUS.BAG IVPB SCH ×3 (14:17→16:31)
[2021-08-22] MEDS: HYDROCORTISONE SOD SUCCINATE 100 MG/2 ML VIAL IVPB SCH (20:15)
[2021-08-22] MEDS: Methylnaltrexone Bromide 12 MG/0.6 ML KIT SQ SCH (22:19)
[2021-08-23] MEDS: ACETAMINOPHEN 1000 MG/100 ML VIAL IVPB PRN ×3 (00:22→17:00)
[2021-08-23] MEDS ORDERED: PCA PUMP NR ONE ×3 (00:28→17:10)
[2021-08-23] MEDS: HYDROmorphone *PCA* 10MG/50ML DISP.SYRIN PCA SCH ×4 (00:31→19:38)
[2021-08-23] MEDS: ONDANSETRON 4 MG/2 ML VIAL IVPB SCH ×3 (01:12→16:40)
[2021-08-23] MEDS: AMINO ACIDS 4.25%/D5W 1,000 ML IV SCH ×4 (01:40→22:19)
[2021-08-23] MEDS: METOCLOPRAMIDE HCL INJECTION 10 MG/2 ML VIAL IVPB SCH ×3 (02:54→17:48)
[2021-08-23] MEDS: HYDROCORTISONE SOD SUCCINATE 100 MG/2 ML VIAL IVPB SCH ×5 (04:14→22:20)
[2021-08-23 08:28] LABS: BASO % 0.2 % (0-2.0); HEMATOCRIT 24.1 % (32.4-45.2); HEMOGLOBIN 8.2 GM/dL (10.7-15.3); LYMPH % 8.9 % (8-40); MCH 28.5 pg (25.7-33.7); MEAN CELL VOLUME 83.9 fl (80-96); MEAN PLT VOLUME 8.7 fl (7.5-11.1); MONO % 3.3 % (3.8-10.2); NEUT % 87.6 % (42.8-82.8); PLATELET COUNT 103 10^3/uL (134-434); RBC 2.87 M/mm3 (3.60-5.2); WHITE BLOOD COUNT 4.8 K/mm3 (4.0-10.0)
[2021-08-23 08:35] LABS: CHLORIDE 99 mmol/L (98-107); SODIUM 129 mmol/L (136-145)
[2021-08-23 08:40] LABS: ALBUMIN 2.2 g/dl (3.4-5.0)
[2021-08-23 08:42] LABS: ANION GAP 11 MMOL/L (8-16); CO2 19 mmol/L (21-32); SGOT/AST 163 U/L (15-37); SGPT/ALT 44 U/L (13-61)
[2021-08-23 08:43] LABS: CREATININE 1.1 mg/dL (0.55-1.3); TOT PROT 6.8 g/dl (6.4-8.2)
[2021-08-23 08:46] LABS: CALCIUM 7.9 mg/dL (8.5-10.1)
[2021-08-23 08:47] LABS: BLOOD UREA NITROGEN 23.6 mg/dL (7-18); GLUCOSE,RANDOM 120 mg/dL (74-106)
[2021-08-23 08:50] LABS: CHOLESTEROL 93 mg/dL (50-200); HDL CHOLESTEROL 21 mg/dL (40-60); TRIGLYCERIDES 111 mg/dL (0-150)
[2021-08-23 08:51] LABS: BILIRUBIN,TOTAL 1.2 mg/dL (0.2-1); LDL CHOLESTEROL (ONLY SJRH) 55 mg/dL (5-100)
[2021-08-23 08:55] LABS: ALK PHOS 138 U/L (45-117); PHOSPHOROUS 0.8 mg/dL (2.5-4.9)
[2021-08-23] MEDS: IBUPROFEN 800 MG/8 ML IJ IVPB PRN (09:20)
[2021-08-23] MEDS ORDERED: NAPH,MB-DB/K PH,MBDB POWDER PACKET PO ONE (10:45)
[2021-08-23] MEDS ORDERED: SODIUM PHOSPHATE - 20 MM in DEXTROSE 5%-WATER - 250 ML IVPB ONE (10:46)
[2021-08-23] MEDS ORDERED: MAGNESIUM SULF 50% (8.12 MEQ/2 ML-1 GM VIAL) IVPB ONE ×3 (10:46→20:02)
[2021-08-23] MEDS ORDERED: SODIUM PHOSPHATE - 20 MM in DEXTROSE 5%-WATER - 500 ML IVPB ONE (11:15)
[2021-08-23] MEDS: NAPROXEN 250 MG TABLET PO SCH ×2 (11:22→22:17)
[2021-08-23] MEDS: POLYETHYLENE GLYCOL (HEALTHYLAX) 3350 17 GM PACKET PO SCH (11:22)
[2021-08-23] MEDS: DRONABINOL 2.5 MG CAPSULE PO SCH (11:22)
[2021-08-23] MEDS: LORazepam 2 MG/ML SDV VIAL IVPUSH PRN (11:44)
[2021-08-23] MEDS ORDERED: WATER IVPB ONE (11:55)
[2021-08-23] MEDS ORDERED: DEXTROSE IVPB ONE (11:55)
[2021-08-23] MEDS ORDERED: POTASSIUM PHOSPHATE 30 MM in DEXTROSE 5%-WATER - 500 ML IVPB ONE (11:55)
[2021-08-23] MEDS ORDERED: SODIUM PHOSPHATE IVPB ONE (11:55)
[2021-08-23] MEDS: ENOXAPARIN NA (PORCINE) 80 MG/0.8 ML DISP.SYRIN SQ SCH ×2 (12:16→22:19)
[2021-08-23] MEDS: PANTOPRAZOLE SODIUM 40 MG VIAL IVPB SCH (12:17)
[2021-08-23 17:06] LABS: THYROID STIM IMMUNOGLOBULIN <0.10 IU/L (0.00-0.55)
[2021-08-23] MEDS ORDERED: ACETAMINOPHEN 1000 MG/100 ML VIAL IVPB ONE (20:03)
[2021-08-23 21:24] LABS: BASO % 0.2 % (0-2.0); HEMATOCRIT 24.3 % (32.4-45.2); HEMOGLOBIN 8.2 GM/dL (10.7-15.3); LYMPH % 10.6 % (8-40); MCH 28.1 pg (25.7-33.7); MCHC 33.6 g/dl (32.0-36.0); MEAN CELL VOLUME 83.7 fl (80-96); MEAN PLT VOLUME 8.7 fl (7.5-11.1); MONO % 6.2 % (3.8-10.2); PLATELET COUNT 88 10^3/uL (134-434); RDW 17.7 % (11.6-15.6)
[2021-08-23 21:54] LABS: MAGNESIUM 1.4 mg/dL (1.8-2.4)
[2021-08-23 21:57] LABS: PHOSPHOROUS 1.5 mg/dL (2.5-4.9)
[2021-08-23] MEDS: MAGNESIUM OXIDE 400 MG TABLET (FP) PO SCH (22:17)
[2021-08-23] MEDS: SMOFLIPID - FAT EMUL/SOY/MCT/OLIV/FISH OIL 250 ML EMULSION IV SCH (22:17)
[2021-08-24] MEDS: ONDANSETRON 4 MG/2 ML VIAL IVPB SCH ×3 (01:51→17:27)
[2021-08-24] MEDS: METOCLOPRAMIDE HCL INJECTION 10 MG/2 ML VIAL IVPB SCH ×3 (01:57→18:22)
[2021-08-24] MEDS ORDERED: PCA PUMP NR ONE ×3 (03:48→15:22)
[2021-08-24] MEDS: HYDROmorphone *PCA* 10MG/50ML DISP.SYRIN PCA SCH (03:51)
[2021-08-24] MEDS ORDERED: MAGNESIUM SULF 50% (8.12 MEQ/2 ML-1 GM VIAL) IVPB ONE (04:25)
[2021-08-24] MEDS: HYDROCORTISONE SOD SUCCINATE 100 MG/2 ML VIAL IVPB SCH (05:34)
[2021-08-24 07:47] LABS: INR 1.54 (0.83-1.09); PROTHROMBIN TIME (PATIENT) 18.1 SEC (9.7-13.0)
[2021-08-24 07:57] LABS: BASO % 0.4 % (0-2.0); HEMATOCRIT 24.5 % (32.4-45.2); HEMOGLOBIN 8.5 GM/dL (10.7-15.3); LYMPH % 5.8 % (8-40); MCH 29.1 pg (25.7-33.7); MCHC 34.6 g/dl (32.0-36.0); MEAN CELL VOLUME 84.2 fl (80-96); MEAN PLT VOLUME 9.8 fl (7.5-11.1); MONO % 10.4 % (3.8-10.2); NEUT % 83.4 % (42.8-82.8); PLATELET COUNT 107 10^3/uL (134-434); RBC 2.91 M/mm3 (3.60-5.2); RDW 18.2 % (11.6-15.6); WHITE BLOOD COUNT 6.1 K/mm3 (4.0-10.0)
[2021-08-24] MEDS: POLYETHYLENE GLYCOL (HEALTHYLAX) 3350 17 GM PACKET PO SCH (09:09)
[2021-08-24] MEDS: DRONABINOL 2.5 MG CAPSULE PO SCH (09:09)
[2021-08-24] MEDS: NAPROXEN 250 MG TABLET PO SCH ×2 (09:09→23:06)
[2021-08-24] MEDS: MAGNESIUM OXIDE 400 MG TABLET (FP) PO SCH ×2 (09:09→23:05)
[2021-08-24] MEDS: ACETAMINOPHEN 1000 MG/100 ML VIAL IVPB PRN ×2 (10:00→23:55)
[2021-08-24 10:27] LABS: ALBUMIN 2.4 g/dl (3.4-5.0); BILIRUBIN,TOTAL 1.1 mg/dL (0.2-1); BLOOD UREA NITROGEN 25.8 mg/dL (7-18); CALCIUM 7.5 mg/dL (8.5-10.1); CREATININE 1.2 mg/dL (0.55-1.3); MAGNESIUM 2.4 mg/dL (1.8-2.4); TOT PROT 6.6 g/dl (6.4-8.2)
[2021-08-24] MEDS: PANTOPRAZOLE SODIUM 40 MG VIAL IVPB SCH (10:30)
[2021-08-24] MEDS: ENOXAPARIN NA (PORCINE) 80 MG/0.8 ML DISP.SYRIN SQ SCH ×2 (10:33→23:03)
[2021-08-24] MEDS: AMINO ACIDS 4.25%/D5W 1,000 ML IV SCH ×2 (11:38→18:22)
[2021-08-24] MEDS: methylPREDNISolone NA SUCC 40 MG/1 ML VIAL IVPB SCH ×2 (12:51→17:46)
[2021-08-24] MEDS: IBUPROFEN 800 MG/8 ML IJ IVPB PRN (14:18)
[2021-08-24] MEDS ORDERED: SODIUM CHLORIDE 1,000 ML IV SCH ×2 (14:30→17:57)
[2021-08-24] MEDS: LORazepam 2 MG/ML SDV VIAL IVPUSH PRN (14:38)
[2021-08-24 15:16] LABS: BASO % 0.3 % (0-2.0); EOS % 0.1 % (0-4.5); HEMOGLOBIN 8.1 GM/dL (10.7-15.3); LYMPH % 7.7 % (8-40); MCH 28.3 pg (25.7-33.7); MCHC 33.6 g/dl (32.0-36.0); MEAN CELL VOLUME 84.2 fl (80-96); MEAN PLT VOLUME 9.7 fl (7.5-11.1); MONO % 5.2 % (3.8-10.2); NEUT % 86.7 % (42.8-82.8); PLATELET COUNT 96 10^3/uL (134-434); RBC 2.85 M/mm3 (3.60-5.2); RDW 18.4 % (11.6-15.6)
[2021-08-24 15:36] LABS: CHLORIDE 100 mmol/L (98-107); SODIUM 129 mmol/L (136-145)
[2021-08-24 15:38] LABS: CALCIUM 7.2 mg/dL (8.5-10.1)
[2021-08-24 15:39] LABS: ALBUMIN 2.1 g/dl (3.4-5.0); ANION GAP 12 MMOL/L (8-16); BLOOD UREA NITROGEN 28.6 mg/dL (7-18); CO2 17 mmol/L (21-32); GLUCOSE,RANDOM 150 mg/dL (74-106); MAGNESIUM 1.8 mg/dL (1.8-2.4)
[2021-08-24 15:42] LABS: CREATININE 1.2 mg/dL (0.55-1.3); SGOT/AST 409 U/L (15-37); SGPT/ALT 91 U/L (13-61)
[2021-08-24 15:43] LABS: BILIRUBIN,TOTAL 1.2 mg/dL (0.2-1)
[2021-08-24 15:44] LABS: TOT PROT 6.6 g/dl (6.4-8.2)
[2021-08-24] MEDS ORDERED: HYDROmorphone HCl 2 MG/ML VIAL IVPB ONE (15:44)
[2021-08-24 15:45] LABS: ALK PHOS 100 U/L (45-117)
[2021-08-24 15:52] LABS: LACTIC ACID 2.1 mmol/L (0.4-2.0)
[2021-08-24 15:52] LABS: PHOSPHOROUS 0.8 mg/dL (2.5-4.9)
[2021-08-24] MEDS: HYDROMORPHONE HCL IVPB SCH (16:14)
[2021-08-24] MEDS: SODIUM CHLORIDE IVPB SCH (16:14)
[2021-08-24] MEDS ORDERED: POTASSIUM PHOSPHATE 30 MM in DEXTROSE 5%-WATER - 500 ML IVPB ONE ×2 (16:34→23:00)
[2021-08-24] MEDS ORDERED: PIPERACILLIN/TAZOBACTAM 3.375 GM VIAL IVPB ONE (17:39)
[2021-08-24] MEDS ORDERED: DEXTROSE 5%-WATER - 50 ML IVPB ONE (17:39)
[2021-08-24] MEDS: PIPERACILLIN/TAZOB 3.375 GM 3.375 GM in DEXTROSE 5%-WATER - 50 ML IVPB SCH ×2 (17:46→18:28)
[2021-08-24] MEDS: SMOFLIPID - FAT EMUL/SOY/MCT/OLIV/FISH OIL 250 ML EMULSION IV SCH (22:48)
[2021-08-24] MEDS: Methylnaltrexone Bromide 12 MG/0.6 ML KIT SQ SCH (22:51)
[2021-08-25] MEDS: ONDANSETRON 4 MG/2 ML VIAL IVPB SCH ×4 (00:51→23:26)
[2021-08-25] MEDS ORDERED: DEXTROSE 5%-WATER - 50 ML IVPB ONE ×2 (01:25→09:10)
[2021-08-25] MEDS ORDERED: PIPERACILLIN/TAZOBACTAM 3.375 GM VIAL IVPB ONE ×2 (01:25→09:10)
[2021-08-25] MEDS: PIPERACILLIN/TAZOB 3.375 GM 3.375 GM in DEXTROSE 5%-WATER - 50 ML IVPB SCH ×2 (01:30→09:28)
[2021-08-25] MEDS: METOCLOPRAMIDE HCL INJECTION 10 MG/2 ML VIAL IVPB SCH (02:03)
[2021-08-25] MEDS ORDERED: IBUPROFEN 400 MG TABLET (FP) PO ONE (02:19)
[2021-08-25] MEDS ORDERED: IBUPROFEN 800 MG/8 ML IJ IVPB ONE (02:26)
[2021-08-25] MEDS: methylPREDNISolone NA SUCC 40 MG/1 ML VIAL IVPB SCH ×4 (05:00→21:01)
[2021-08-25] MEDS: AMINO ACIDS 4.25%/D5W 1,000 ML IV SCH ×2 (06:00→17:34)
[2021-08-25 06:10] VITALS: TEMP 102.8
[2021-08-25] MEDS ORDERED: IBUPROFEN 800 MG/8 ML IJ IVPB PRN (07:38)
[2021-08-25 07:45] LABS: INR 2.14 (0.83-1.09); PROTHROMBIN TIME (PATIENT) 24.2 SEC (9.7-13.0)
[2021-08-25 07:48] LABS: ACTIVATED PTT 45.7 SECONDS (25.2-36.5)
[2021-08-25 08:12] LABS: ANION GAP 14 MMOL/L (8-16); CHLORIDE 102 mmol/L (98-107); CO2 14 mmol/L (21-32); SODIUM 130 mmol/L (136-145)
[2021-08-25 08:13] LABS: BLOOD UREA NITROGEN 46.2 mg/dL (7-18); GLUCOSE,RANDOM 173 mg/dL (74-106); SGPT/ALT 300 U/L (13-61)
[2021-08-25 08:14] LABS: CREATININE 2.1 mg/dL (0.55-1.3)
[2021-08-25 08:15] LABS: TOT PROT 5.7 g/dl (6.4-8.2)
[2021-08-25 08:16] LABS: PHOSPHOROUS 3.4 mg/dL (2.5-4.9)
[2021-08-25 08:18] LABS: BILIRUBIN,TOTAL 2.1 mg/dL (0.2-1)
[2021-08-25 08:19] LABS: ALK PHOS 75 U/L (45-117)
[2021-08-25 08:21] LABS: LACTIC ACID 3.8 mmol/L (0.4-2.0)
[2021-08-25 08:53] LABS: CALCIUM 6.5 mg/dL (8.5-10.1); LDH > 4000 U/L (84-246); SGOT/AST 1378 U/L (15-37)
[2021-08-25] MEDS: PANTOPRAZOLE SODIUM 40 MG VIAL IVPB SCH ×2 (09:27→09:41)
[2021-08-25] MEDS: POLYETHYLENE GLYCOL (HEALTHYLAX) 3350 17 GM PACKET PO SCH (09:29)
[2021-08-25] MEDS: MAGNESIUM OXIDE 400 MG TABLET (FP) PO SCH ×2 (09:29→21:01)
[2021-08-25] MEDS: DRONABINOL 2.5 MG CAPSULE PO SCH (09:29)
[2021-08-25] MEDS: ENOXAPARIN NA (PORCINE) 80 MG/0.8 ML DISP.SYRIN SQ SCH (09:29)
[2021-08-25] MEDS: ACETAMINOPHEN 1000 MG/100 ML VIAL IVPB PRN ×2 (12:36→20:57)
[2021-08-25] MEDS: HYDROMORPHONE HCL IVPB SCH ×2 (14:24→16:54)
[2021-08-25] MEDS: SODIUM CHLORIDE IVPB SCH ×2 (14:24→16:54)
[2021-08-25] MEDS: SMOFLIPID - FAT EMUL/SOY/MCT/OLIV/FISH OIL 250 ML EMULSION IV SCH (23:22)
[2021-08-25 23:42] VITALS: BP 70/35
[2021-08-26] MEDS: methylPREDNISolone NA SUCC 40 MG/1 ML VIAL IVPB SCH (03:25)
[2021-08-26 06:17] VITALS: PULSE 55
== END 2021-08-26 07:00 | disposition expired | DRG 281 ==
LOC: JER 19:19 → JERBED 19:21 → J7W 20:34
PROVIDERS: ADMIT Internal Medicine Hematology & Oncology; ATTEND Student in an Organized Health Care Education/Training Program
DX: C23 Malignant neoplasm of gallbladder (principal); E88.3 Tumor lysis syndrome; I81 Portal vein thrombosis; N13.30 Unspecified hydronephrosis; E87.2 Acidosis; E83.39 Other disorders of phosphorus metabolism; E83.42 Hypomagnesemia; E87.1 Hypo-osmolality and hyponatremia; D63.8 Anemia in other chronic diseases classified elsewhere; R11.2 Nausea with vomiting, unspecified; R11.0 Nausea; R62.7 Adult failure to thrive; E87.6 Hypokalemia; E88.09 Other disorders of plasma-protein metabolism, not elsewhere classified; R53.2 Functional quadriplegia; I10 Essential (primary) hypertension; N39.0 Urinary tract infection, site not specified
CPT/HCPCS: 36415; 36430; 71045-TC-FY; 74177-TC; 76775-TC; 80048; 80053; 80061; 81003; 82150; 82533; 82550; 82553; 83605; 83615; 83690; 83735; 84100; 84439; 84443; 84445; 84481; 84550; 85025; 85610; 85730; 86376; 86850; 86900; 86901; 86922; 87040; 87086; 93005; 93010; 99285-25; C9803; J0131; P9058; Q9967; U0003; U0005